=== PATIENT | male | born 1940 ===

== ENCOUNTER 2016-10-19 17:31 | Emergency (ER) | payer OTHER, MEDICARE ==
[2016-10-19 17:31] VITALS: BMI 29.9
[2016-10-19 18:01] VITALS: RESP 20; TEMP 98.5
[2016-10-19 18:43] VITALS: BP 130/77; PULSE 92
--- NOTE | 2016-10-19 18:45 | C.PDOC ---
History Of Present Illness 76 yr old male with PMHx of chronic back pain and PE, is on Pradaxa, presents to the ER with complaints of worsening of his usual lower back pain left more then right side. Patient states the pain is now radiating to the left thigh. Patient reports he was seen by Dr. Vizcarra in August and was prescribed percocet for this same pain. Patient states the pain flared up again in the last week, and he has been taking his 's Naproxen with some relief and came to the ER requesting more Naproxen. Patient denies fever, nausea, vomiting, abdominal pain, diarrhea, dysuria, bladder or bowel incontinence, weakness or numbness. Time Seen by Provider: 10/19/16 18:36 Chief Complaint (Nursing): Back Pain History Per: Patient History/Exam Limitations: no limitations Onset/Duration Of Symptoms: Persistent, Worse Since (last week) Current Symptoms Are (Timing): Still Present Past Medical History Reviewed: Historical Data, Nursing Documentation, Vital Signs Vital Signs: Last Vital Signs Temp 98.5 F 10/19/16 18:40 Pulse 92 H 10/19/16 18:40 Resp 20 10/19/16 18:40 BP 130/77 10/19/16 18:40 Pulse Ox 97 10/19/16 20:33 - Medical History PMH: Anemia, Back Problems (NECK PAIN), HTN, Pulmonary Embolism Surgical History: No Surg Hx - [facility] Procedures EXCISION OF RECTUM, ENDO, DIAGN (04/30/16) EXCISION OF STOMACH, ENDO, DIAGN (04/30/16) Family History: States: No Known Family Hx - Social History Hx Tobacco Use: No Hx Alcohol Use: Yes Hx Substance Use: No - Immunization History Hx Tetanus Toxoid Vaccination: No Hx Influenza Vaccination: No Hx Pneumococcal Vaccination: No Review Of Systems Except As Marked, All Systems Reviewed And Found Negative. Constitutional: Negative for: Fever Gastrointestinal: Negative for: Nausea, Vomiting, Abdominal Pain, Diarrhea Genitourinary: Negative for: Dysuria, Incontinence Musculoskeletal: Positive for: Back Pain Neurological: Negative for: Weakness, Numbness Physical Exam - Physical Exam Appears: Non-toxic, No Acute Distress Skin: Warm, Dry, No Rash Head: Atraumatic, Normacephalic Oral Mucosa: Moist Neck: Normal, Normal ROM, No Midline Cervical Tenderness, Supple Chest: Symmetrical, No Tenderness Cardiovascular: Rhythm Regular, No Murmur Respiratory: Normal Breath Sounds, No Rales, No Rhonchi, No Stridor, No Wheezing Gastrointestinal/Abdominal: Normal Exam, Soft, No Tenderness, No Guarding, No Rebound Back: Other ((+) Mild left lumbar tenderness. (-) No midline tenderness. Spine doesnt't appear straight. ) Extremity: Normal ROM, No Swelling Neurological/Psych: Oriented x3, Normal Speech, Normal Motor ED Course And Treatment O2 Sat by Pulse Oximetry: 97 Progress Note: Had a long discussion with the patient about Naproxen not being the best medicine, given his stomach problem "on protonix and use of Pradaxa". Patient now understands NSAIDS are not the first choice and is advised to follow up with PMD on Saturday to discuss recommendations of pain management and possible physcial therapy or any other alternative treatments. Disposition Counseled Patient/Family Regarding: Diagnosis, Need For Followup - Disposition Referrals: Robert Vizcarra MD [Staff Provider] - Disposition: HOME/ ROUTINE Disposition Time: 19:44 Condition: GOOD Additional Instructions: Follow up with Dr Vizcarra on Saturday to discuss other pain management techniques for your back pain. Take the percocet you already have if needed for pain. 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 - Scribe Statement The provider has reviewed the documentation as recorded by the Scribe Hannah Kwok All medical record entries made by the Scribe were at my direction and personally dictated by me. I have reviewed the chart and agree that the record accurately reflects my personal performance of the history, physical exam, medical decision making, and the department course for this patient. I have also personally directed, reviewed, and agree with the discharge instructions and disposition.
[2016-10-19 18:50] VITALS: O2SAT 97
== END 2016-10-19 20:10 | disposition home or self-care (01) ==
LOC: C.ER 17:31
DX: S33.5XXA Sprain of ligaments of lumbar spine, initial encounter (principal); X58.XXXA Exposure to other specified factors, initial encounter; Y93.9 Activity, unspecified; Y92.9 Unspecified place or not applicable

== ENCOUNTER 2016-11-11 17:53 | Emergency (ER) | payer OTHER ==
[2016-11-11 17:54] VITALS: BMI 29.9
[2016-11-11] MEDS ORDERED: Albuterol-Ipratrop 3 mg / 0.5 (3 ml) UD ONE (18:50)
[2016-11-11] MEDS ORDERED: DiphenhydrAMINE 50 mg/ml Inj IVP STA (18:50)
[2016-11-11 19:07] LABS: BASO # 0.1 K/uL (0.0-0.2); BASO % 1.2 % (0.0-2.0); EOS # 0.6 K/uL (0.0-0.7); EOS % 6.1 % (0.0-4.0); HEMATOCRIT 30.3 % (35.0-51.0); LYMPH # 1.6 K/uL (1.0-4.3); MEAN CELL VOLUME 70.9 fL (80.0-94.0); MEAN CORPUSCULAR HEMOGLOBIN 22.3 pg (27.0-31.0); MEAN CORPUSCULAR HGB CONC 31.4 g/dL (33.0-37.0); MEAN PLATELET VOLUME 7.9 fL (7.2-11.7); MONO # 1.2 K/uL (0.0-0.8); MONO % 12.9 % (0.0-10.0); NRBC % 0.1 % (0.0-2.0); RED CELL DISTRIBUTION WIDTH 18.5 % (11.5-14.5); WHITE BLOOD COUNT 9.2 K/uL (4.8-10.8)
[2016-11-11 19:09] LABS: URINE BILIRUBIN NEGATIVE (NEGATIVE); URINE BLOOD NEGATIVE (NEGATIVE); URINE COLOR Straw (YELLOW); URINE GLUCOSE (UA) 1+ mg/dL (Normal); URINE KETONE NEGATIVE (NEGATIVE); URINE LEUKOCYTE ESTERASE NEG Leu/uL (Negative); URINE PROTEIN NEGATIVE (NEGATIVE); URINE UROBILINOGEN NORMAL mg/dL (0.2-1.0); WBC URINE < 1 /hpf (0-5)
[2016-11-11 19:16] LABS: CHLORIDE 96 mmol/L (98-107); POTASSIUM 4.3 mmol/L (3.6-5.2); SODIUM 135 mmol/L (132-148)
[2016-11-11 19:18] LABS: GFR AFRICAN-AMERICAN > 60
[2016-11-11 19:19] LABS: ALB/GLOB RATIO 0.9 (1.0-2.1); ALKALINE PHOSPHATASE 79 U/L (38-126); ALT/SGPT 81 U/L (21-72); AST/SGOT 71 U/L (17-59); BILIRUBIN,TOTAL 0.2 mg/dL (0.2-1.3); BLOOD UREA NITROGEN 11 mg/dL (9-20); CARBON DIOXIDE 27 mmol/L (22-30); GLUCOSE,RANDOM 109 mg/dL (75-110); TOTAL PROTEIN 7.6 g/dL (6.3-8.3)
[2016-11-11 19:20] LABS: CALCIUM 8.7 mg/dl (8.6-10.4)
[2016-11-11] MEDS ORDERED: DiphenhydrAMINE 50 mg/ml Inj ONE (19:34)
--- NOTE | 2016-11-11 20:18 | C.PDOC ---
History Of Present Illness Pt has multiple complaints, including left upper back pain with movement, and itching of his body and loss of appetite. 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 History/Exam Limitations: language barrier Onset/Duration Of Symptoms: Days Current Symptoms Are (Timing): Still Present Severity: Moderate Additional History Per: Prior Records Past Medical History Reviewed: Historical Data, Nursing Documentation, Vital Signs Vital Signs: Last Vital Signs Temp 97.7 F 11/11/16 18:01 Pulse 96 H 11/11/16 18:01 Resp 17 11/11/16 18:01 BP 124/75 11/11/16 18:01 Pulse Ox 97 11/11/16 18:01 - Medical History PMH: Anemia, Back Problems (NECK PAIN), HTN, Pulmonary Embolism - [facility] Procedures EXCISION OF RECTUM, ENDO, DIAGN (04/30/16) EXCISION OF STOMACH, ENDO, DIAGN (04/30/16) Family History: States: Unknown Family Hx - Social History Hx Tobacco Use: No Hx Alcohol Use: Yes Hx Substance Use: No - Immunization History Hx Tetanus Toxoid Vaccination: No Hx Influenza Vaccination: No Hx Pneumococcal Vaccination: No Review Of Systems Except As Marked, All Systems Reviewed And Found Negative. Constitutional: Negative for: Fever, Weakness ENT: Negative for: Throat Pain Cardiovascular: Negative for: Chest Pain Respiratory: Negative for: Shortness of Breath, Hemoptysis Gastrointestinal: Negative for: Vomiting, Abdominal Pain, Diarrhea Genitourinary: Negative for: Dysuria Musculoskeletal: Positive for: Back Pain. Negative for: Neck Pain, Leg Pain Neurological: Negative for: Weakness, Numbness, Seizures, Altered Mental Status Physical Exam - Physical Exam Appears: Non-toxic, No Acute Distress Skin: Normal Color, Warm, Dry, No Rash Head: Atraumatic, Normacephalic Eye(s): bilateral: PERRL, EOMI Oral Mucosa: Moist Neck: Normal ROM, Supple Cardiovascular: Rhythm Regular Respiratory: Normal Breath Sounds, No Accessory Muscle Use Gastrointestinal/Abdominal: Soft, No Tenderness Back: No CVA Tenderness, No Vertebral Tenderness, Paraspinal Tenderness (left upper) Extremity: Normal ROM, No Pedal Edema, No Calf Tenderness Neurological/Psych: Oriented x3, Normal Motor, Normal Sensation ED Course And Treatment - Laboratory Results Result Diagrams: 11/11/16 19:04 04/09/17 19:04 O2 Sat by Pulse Oximetry: 97 Pulse Ox Interpretation: Normal - Radiology CXR: Interpreted by Me, Viewed By Me CXR Interpretation: Yes: No Acute Disease Reassessment Condition: Improved Progress - Interventions Interventions:: Observation - Medications Administered Intravenous: Antihistamine (H-1) - Data Reviewed Data Reviewed: Lab, Diagnostic imaging, Old records - Patient Status Patient status: Mostly improved - Continuity of Care Discussed patient case with:: Patient, Family-HIPPA compliant, ED Nurse - Patient Plan Patient Plan: Discharge, F/U with PCP Disposition Counseled Patient/Family Regarding: Studies Performed, Diagnosis, Need For Followup, Rx Given - Disposition Referrals: Robert Vizcarra MD [Staff Provider] - Disposition: HOME/ ROUTINE Disposition Time: 20:19 Condition: IMPROVED Additional Instructions: Follow up with your doctor within 2 days for further evaluation and treatment. Return to the ER if you develop shortness of breath, chest pain, vomiting, abdominal pain, fever, cough, worsening of symptoms or if you have any other concerns. Prescriptions: DiphenhydrAMINE [Benadryl] 25 mg PO Q4 PRN #30 cap PRN Reason: Itching / Pruritus Instructions: Back Pain (ED), Itchy Skin (ED) Print Language: MONTSERRATIAN - Clinical Impression Clinical Impression: Pruritus, Upper back pain on left side
[2016-11-11 20:35] VITALS: BP 118/77; PULSE 85; RESP 18; TEMP 98.5; O2SAT 99
--- NOTE | 2016-11-12 08:44 | RAD ---
HISTORY: Back pain COMPARISON: No prior. TECHNIQUE: Chest PA and lateral FINDINGS: LUNGS: Biapical pleural thickening. No focal infiltrate or effusion. Mild nodularity at the left lung base. Upper lobe granulomatous changes. PLEURA: No significant pleural effusion identified. No pneumothorax apparent. CARDIOVASCULAR: Normal. OSSEOUS STRUCTURES: Degenerative changes in the spine. VISUALIZED UPPER ABDOMEN: Normal. OTHER FINDINGS: None. IMPRESSION: Biapical pleural thickening. No focal infiltrate or effusion. Mild nodularity at the left lung base. Upper lobe granulomatous changes.
--- NOTE | 2016-11-12 12:47 | CARD ---
APPROVED REPORT EKG Measurement Heart [id number] PA [id number] <Conclusion> Sinus rhythm with sinus arrhythmia with occasional premature ventricular complexes Nonspecific T wave abnormality Abnormal ECG
== END 2016-11-11 20:55 | disposition home or self-care (01) ==
LOC: C.ER 17:53
DX: L29.9 Pruritus, unspecified (principal); M54.89 Other dorsalgia
CPT/HCPCS: 71020; 80053; 81001; 84484; 85025; 93005; 96374; 99284; J1200

== ENCOUNTER 2016-12-30 12:07 | Emergency (ER) | payer OTHER ==
[2016-12-30 12:08] VITALS: BMI 29.9
[2016-12-30 12:13] VITALS: RESP 18; O2SAT 100
--- NOTE | 2016-12-30 13:33 | RAD ---
PROCEDURE: Radiographs of the Lumbar Spine. HISTORY: pain COMPARISON: No prior. FINDINGS: BONES: Normal alignment. No listhesis. No fracture. DISC SPACES: Unremarkable. OTHER FINDINGS: Mild facet arthropathy at L5-S1 IMPRESSION: Mild degenerative changes. No acute findings
[2016-12-30 14:03] LABS: RBC URINE < 1 /hpf (0-3); URINE BILIRUBIN NEGATIVE (NEGATIVE); URINE BLOOD NEGATIVE (NEGATIVE); URINE COLOR Yellow (YELLOW); URINE GLUCOSE (UA) NORMAL (Normal); URINE KETONE NEGATIVE (NEGATIVE); URINE LEUKOCYTE ESTERASE NEG Leu/uL (Negative); URINE PROTEIN NEGATIVE (NEGATIVE); URINE UROBILINOGEN NORMAL mg/dL (0.2-1.0); WBC URINE 1 /hpf (0-5)
[2016-12-30 14:19] LABS: BASO # 0.1 K/uL (0.0-0.2); BASO % 0.7 % (0.0-2.0); EOS # 0.5 K/uL (0.0-0.7); EOS % 5.7 % (0.0-4.0); HEMATOCRIT 29.9 % (35.0-51.0); LYMPH # 1.9 K/uL (1.0-4.3); LYMPH % 21.4 % (20.0-40.0); MEAN CORPUSCULAR HEMOGLOBIN 21.1 pg (27.0-31.0); MEAN CORPUSCULAR HGB CONC 31.1 g/dL (33.0-37.0); MEAN PLATELET VOLUME 7.1 fL (7.2-11.7); MONO # 1.1 K/uL (0.0-0.8); MONO % 12.7 % (0.0-10.0); NRBC % 0.2 % (0.0-2.0); RED CELL DISTRIBUTION WIDTH 19.6 % (11.5-14.5); WHITE BLOOD COUNT 8.9 K/uL (4.8-10.8)
[2016-12-30 14:21] LABS: MEAN CELL VOLUME 67.7 fL (80.0-94.0)
[2016-12-30 14:28] LABS: CHLORIDE 98 mmol/L (98-107)
[2016-12-30 14:29] LABS: INR 1.2; POTASSIUM 4.3 mmol/L (3.6-5.2); SODIUM 135 mmol/L (132-148)
[2016-12-30 14:31] LABS: ALB/GLOB RATIO 1.1 (1.0-2.1); ALKALINE PHOSPHATASE 86 U/L (38-126); AST/SGOT 24 U/L (17-59); BILIRUBIN,TOTAL 0.5 mg/dL (0.2-1.3); BLOOD UREA NITROGEN 9 mg/dL (9-20); CARBON DIOXIDE 26 mmol/L (22-30); GFR AFRICAN-AMERICAN > 60; GLUCOSE,RANDOM 100 mg/dL (75-110); TOTAL PROTEIN 7.3 g/dL (6.3-8.3)
[2016-12-30 14:32] LABS: ALT/SGPT 27 U/L (21-72); CALCIUM 8.7 mg/dl (8.6-10.4)
--- NOTE | 2016-12-30 14:59 | RAD ---
HISTORY: pleuritic pain COMPARISON: 11/11/2016. TECHNIQUE: Chest PA and lateral FINDINGS: LUNGS: No active pulmonary disease. PLEURA: No significant pleural effusion identified. No pneumothorax apparent. CARDIOVASCULAR: No radiographic findings to suggest acute or significant cardiovascular disease. OSSEOUS STRUCTURES: No significant abnormalities. VISUALIZED UPPER ABDOMEN: Normal. OTHER FINDINGS: None. IMPRESSION: No active disease. No significant interval change compared to the prior examination(s).
[2016-12-30] MEDS ORDERED: Morphine 4 MG/ML VIAL ONE (15:10)
[2016-12-30] MEDS ORDERED: Iodixanol 320 MG/ML 100 ML BOTTLE IV ONE (15:21)
--- NOTE | 2016-12-30 16:29 | C.PDOC ---
History Of Present Illness 76-year-old male, presents to the emergency department with complaints of back pain. 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 Patient states he developed back pain while lifting something at work, and it has been persistent x2 days. Pain is worse w/ deep breaths. Denies numbness/weakness. Time Seen by Provider: 12/30/16 12:53 Chief Complaint (Nursing): Back Pain History Per: Patient History/Exam Limitations: no limitations Onset/Duration Of Symptoms: Days (2) Current Symptoms Are (Timing): Still Present Past Medical History Reviewed: Historical Data, Nursing Documentation, Vital Signs Vital Signs: Last Vital Signs Temp 98 F 12/30/16 17:38 Pulse 84 12/30/16 17:38 Resp 18 12/30/16 17:38 BP 154/89 H 12/30/16 17:38 Pulse Ox 100 12/30/16 17:38 - Medical History PMH: Anemia, Back Problems (NECK PAIN), HTN, Pulmonary Embolism Denies: Chronic Kidney Disease - [facility] Procedures EXCISION OF RECTUM, ENDO, DIAGN (04/30/16) EXCISION OF STOMACH, ENDO, DIAGN (04/30/16) Family History: States: No Known Family Hx - Social History Hx Tobacco Use: No Hx Alcohol Use: Yes Hx Substance Use: No - Immunization History Hx Tetanus Toxoid Vaccination: No Hx Influenza Vaccination: No Hx Pneumococcal Vaccination: No Review Of Systems Except As Marked, All Systems Reviewed And Found Negative. Constitutional: Negative for: Fever, Chills Cardiovascular: Negative for: Chest Pain, Palpitations Respiratory: Negative for: Shortness of Breath Musculoskeletal: Positive for: Back Pain Physical Exam - Physical Exam Appears: Non-toxic, No Acute Distress Skin: Warm, Dry, No Rash Head: Atraumatic Eye(s): bilateral: Normal Inspection Nose: Normal Oral Mucosa: Moist Lips: Normal Appearing Neck: Normal ROM Chest: Symmetrical Respiratory: No Accessory Muscle Use Back: Other (Tenderness to palpation diffusely.) Extremity: Normal ROM Neurological/Psych: Oriented x3 ED Course And Treatment - Laboratory Results Result Diagrams: 12/30/16 14:16 12/30/16 14:16 O2 Sat by Pulse Oximetry: 100 - Other Rad LS spine xray X-Ray: Viewed By Me, Read By Radiologist Interpretation: Accession No. : [id number]. Patient Name / ID : FRANKO HADDAD / [id number]. Exam Date : 12/30/2016 13:20:11 ( Approved ). Study Comment : Sex / Age : M / 76Y. Creator : Zain Eason MD. Dictator : Zain Eason MD. Buttermilk Drier Operator : Research Chemist : Zain Eason MD. Approver2 : Report Date : 12/30/2016 13:32:10. My Comment : . PROCEDURE: Radiographs of the Lumbar Spine. HISTORY: pain. COMPARISON: No prior. FINDINGS: BONES: Normal alignment. No listhesis. No fracture. DISC SPACES: Unremarkable. OTHER FINDINGS: Mild facet arthropathy at L5-S1. IMPRESSION: Mild degenerative changes. No acute findings - CT Scan/US Chest CTA Other Rad Studies (CT/US): Read By Radiologist, Radiology Report Reviewed CT/US Interpretation: Accession No. : [id number]. Patient Name / ID : FRANKO HADDAD / [id number]. Exam Date : 12/30/2016 16:12:34 ( Approved ). Study Comment : Sex / Age : M / 76Y. Creator : Momo Lemos MD. Dictator : Momo Lemos MD. Buttermilk Drier Operator : Research Chemist : Momo Lemos MD. Approver2 : Report Date : 12/30/2016 16:35:29. My Comment : . PROCEDURE: CT Chest with contrast (Pulmonary Angiogram). HISTORY: pleuritic pain/elevated DDimer. COMPARISON: 04/29/2016 CT angio. TECHNIQUE: Axial computed tomography images were obtained of the chest in the pulmonary arterial phase of enhancement. Coronal and sagittal reformatted images were created and reviewed. Maximum intensity projection (MIP) reconstructed images in the following planes: Coronal and sagittal projections. Intravenous contrast dose: 100 cc Visipaque 320. Mean Hounsfield unit values in the main pulmonary artery: 326.56. Radiation dose: Total exam DLP = 412.88 mGy-cm. This CT exam was performed using one or more of the following dose reduction techniques: Automated exposure control, adjustment of the mA and/or kV according to patient size, and/or use of iterative reconstruction technique. FINDINGS: PULMONARY ARTERIES: Unremarkable. No pulmonary embolism. AORTA: No acute findings. No thoracic aortic aneurysm. LUNGS: Unremarkable. No nodule , mass or pulmonary consolidation. PLEURAL SPACES: Unremarkable. No effusion or pneuomothorax. HEART: Unremarkable. No cardiomegaly. No significant pericardial effusion. LYMPH NODES: No lymphadenopathy. BONES, CHEST WALL: Unremarkable. No fracture or destructive lesion. OTHER FINDINGS: Stable mass right hepatic lobe 2.3 x 3 cm. At a comparable level on the prior study this measured 2.6 x 3.1 cm. IMPRESSION: Unremarkable CT pulmonary angiogram. No pulmonary embolus. Stable hepatic mass Progress Note: Patient was treated with Morphine with improvement. Patient was d /c home with PMD follow up. Medical Decision Making Medical Decision Making: Patients d-dimer elevated. CTA will be ordered. Disposition - Disposition Referrals: Robert Vizcarra MD [Staff Provider] - Disposition: HOME/ ROUTINE Disposition Time: 17:23 Condition: STABLE Additional Instructions: Follow up with your PMD within 1-2 days. Return to ED if feel worse. Prescriptions: oxyCODONE/Acetaminophen [Percocet 5/325 mg Tab] 1 tab PO QID PRN #20 tab PRN Reason: Pain Instructions: Back Pain (ED) Print Language: TAMAZIGHT - Clinical Impression Clinical Impression: Back pain - Scribe Statement The provider has reviewed the documentation as recorded by the Scribe Theresa Corcoran All medical record entries made by the Scribe were at my direction and personally dictated by me. I have reviewed the chart and agree that the record accurately reflects my personal performance of the history, physical exam, medical decision making, and the department course for this patient. I have also personally directed, reviewed, and agree with the discharge instructions and disposition.
--- NOTE | 2016-12-30 16:37 | CT ---
PROCEDURE: CT Chest with contrast (Pulmonary Angiogram) HISTORY: pleuritic pain/elevated DDimer COMPARISON: 04/29/2016 CT angio. TECHNIQUE: Axial computed tomography images were obtained of the chest in the pulmonary arterial phase of enhancement. Coronal and sagittal reformatted images were created and reviewed. Maximum intensity projection (MIP) reconstructed images in the following planes: Coronal and sagittal projections Intravenous contrast dose: 100 cc Visipaque 320. Mean Hounsfield unit values in the main pulmonary artery: 326.56 Radiation dose: Total exam DLP = 412.88 mGy-cm. This CT exam was performed using one or more of the following dose reduction techniques: Automated exposure control, adjustment of the mA and/or kV according to patient size, and/or use of iterative reconstruction technique. FINDINGS: PULMONARY ARTERIES: Unremarkable. No pulmonary embolism. AORTA: No acute findings. No thoracic aortic aneurysm. LUNGS: Unremarkable. No nodule, mass or pulmonary consolidation. PLEURAL SPACES: Unremarkable. No effusion or pneuomothorax. HEART: Unremarkable. No cardiomegaly. No significant pericardial effusion. LYMPH NODES: No lymphadenopathy. BONES, CHEST WALL: Unremarkable. No fracture or destructive lesion OTHER FINDINGS: Stable mass right hepatic lobe 2.3 x 3 cm. At a comparable level on the prior study this measured 2.6 x 3.1 cm. IMPRESSION: Unremarkable CT pulmonary angiogram. No pulmonary embolus. Stable hepatic mass
[2016-12-30 17:40] VITALS: BP 154/89; PULSE 84; TEMP 98
== END 2016-12-30 17:40 | disposition home or self-care (01) ==
LOC: C.ER 12:07
DX: M54.9 Dorsalgia, unspecified (principal); I10 Essential (primary) hypertension; Z86.711 Personal history of pulmonary embolism
CPT/HCPCS: 71020; 71275; 72100; 80053; 81001; 85025; 85378; 85610; 85730; 96374; 99284; J2270; Q9967

== ENCOUNTER 2017-03-04 20:12 | Emergency (ER) | payer MEDICARE, OTHER ==
[2017-03-04 20:12] VITALS: BMI 29.9
[2017-03-04 20:25] VITALS: BP 170/70; PULSE 96; RESP 20; TEMP 97.9; O2SAT 99
--- NOTE | 2017-03-04 21:10 | C.PDOC ---
History Of Present Illness 76 y/o male with Hx of chronic back and neck pain presents to ED with complaints of neck pain for 4 days. Patient states pain is worse with movement. Pt has had similar symptoms in the past .Patient states he has taken Tylenol for pain with no relief. Denies recent injury, sob, change in sensation, fever, bladder/bowel incontinence, chest pain, sob or any other complaints at this time. 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 History/Exam Limitations: no limitations Onset/Duration Of Symptoms: Days Current Symptoms Are (Timing): Still Present Previous Symptoms: Back Pain, Neck Pain Exacerbating Factor(s): Movement Past Medical History Reviewed: Historical Data, Nursing Documentation, Vital Signs Vital Signs: Last Vital Signs Temp 97.9 F 03/04/17 20:24 Pulse 96 H 03/04/17 20:24 Resp 20 03/04/17 20:24 BP 170/70 H 03/04/17 20:24 Pulse Ox 99 03/04/17 21:45 - Medical History PMH: Anemia, Back Problems (NECK PAIN), HTN, Pulmonary Embolism - [facility] Procedures EXCISION OF RECTUM, ENDO, DIAGN (04/30/16) EXCISION OF STOMACH, ENDO, DIAGN (04/30/16) Family History: States: Unknown Family Hx - Social History Hx Tobacco Use: No Hx Alcohol Use: Yes Hx Substance Use: No - Immunization History Hx Tetanus Toxoid Vaccination: No Hx Influenza Vaccination: No Hx Pneumococcal Vaccination: No Review Of Systems Except As Marked, All Systems Reviewed And Found Negative. Constitutional: Negative for: Fever, Chills Gastrointestinal: Negative for: Nausea, Vomiting, Diarrhea Genitourinary: Negative for: Incontinence Musculoskeletal: Positive for: Neck Pain, Back Pain Skin: Negative for: Rash Neurological: Negative for: Numbness, Headache Physical Exam - Physical Exam Appears: Non-toxic, No Acute Distress Skin: Normal Color, Warm Head: Atraumatic, Normacephalic Eye(s): bilateral: Normal Inspection, EOMI Nose: Normal Oral Mucosa: Moist Neck: Normal ROM (aggravated by pain), No Midline Cervical Tenderness, Paracervical Tenderness, No Step Off Deformity Chest: Symmetrical Cardiovascular: Rhythm Regular Respiratory: Normal Breath Sounds, No Accessory Muscle Use, No Rales, No Rhonchi , No Wheezing Back: No CVA Tenderness, No Vertebral Tenderness Extremity: Bilateral: Normal Color And Temperature, Normal ROM Pulses: Left Radial: Normal, Right Radial: Normal Neurological/Psych: Oriented x3, Normal Speech, Normal Cognition, Normal Motor, Normal Sensation ED Course And Treatment ECG: Interpreted By Me, Viewed By Me ECG Rhythm: Sinus Rhythm Rate From EC (bpm) O2 Sat by Pulse Oximetry: 99 (RA) Pulse Ox Interpretation: Normal Progress Note: On reassessment, patient is resting comfortably, and is in no acute distress. Patient was instructed to follow up with physician/clinic in 1- 2 days for further evaluation. Pt was seen and evlauated by Dr Chapman, agreed upon plan and discharge. Reevaluation Time: 21:00 Reassessment Condition: Improved Disposition - Disposition Referrals: Robert Vizcarra MD [Staff Provider] - Disposition: HOME/ ROUTINE Disposition Time: 21:39 Condition: STABLE Additional Instructions: Vaya a andrews mdico o la clnica en 2-5 rocha sin falta, para mas evaluacin. [place] los medicamentos issac indicado. Volver a la miko de emergencia en cualquier momento si los sntomas persisten o empeoran. Prescriptions: Acetaminophen [Tylenol 325mg tab] 650 mg PO Q4 PRN #20 tab PRN Reason: Pain, Mild (1-3) Instructions: Cervical Strain (DC) Forms: [employer] (British) Print Language: TUVALU[place] - Clinical Impression Clinical Impression: Cervical strain - Scribe Statement The provider has reviewed the documentation as recorded by the Scribesteban Caal All medical record entries made by the Scribe were at my direction and personally dictated by me. I have reviewed the chart and agree that the record accurately reflects my personal performance of the history, physical exam, medical decision making, and the department course for this patient. I have also personally directed, reviewed, and agree with the discharge instructions and disposition.
--- NOTE | 2017-03-05 18:49 | CARD ---
APPROVED REPORT EKG Measurement Heart [id number] HI [id number] <Conclusion> Sinus rhythm with premature atrial complexes in a pattern of bigeminy Otherwise normal ECG
== END 2017-03-04 21:45 | disposition home or self-care (01) ==
LOC: C.ER 20:12
DX: S16.1XXA Strain of muscle, fascia and tendon at neck level, initial encounter (principal); X58.XXXA Exposure to other specified factors, initial encounter
CPT/HCPCS: 93005; 96372; 99283; J1885

== ENCOUNTER 2017-05-08 09:40 | Inpatient (IN) | payer OTHER, MEDICARE ==
[2017-05-08 09:40] VITALS: BMI 29.9
[2017-05-08] MEDS ORDERED: Sodium Chloride 0.9% 1,000 ML IV ONE (10:14)
[2017-05-08] MEDS ORDERED: Sodium Chloride 0.9% 1,000 ML ONE (10:36)
[2017-05-08 10:43] LABS: BASO % 0.1 % (0.0-2.0); EOS # 0.2 K/uL (0.0-0.7); EOS % 2.4 % (0.0-4.0); HEMATOCRIT 32.6 % (35.0-51.0); LYMPH # 2.5 K/uL (1.0-4.3); LYMPH % 29.8 % (20.0-40.0); MEAN CELL VOLUME 69.6 fL (80.0-94.0); MEAN CORPUSCULAR HEMOGLOBIN 22.1 pg (27.0-31.0); MEAN CORPUSCULAR HGB CONC 31.7 g/dL (33.0-37.0); MEAN PLATELET VOLUME 7.7 fL (7.2-11.7); MONO # 0.7 K/uL (0.0-0.8); MONO % 8.4 % (0.0-10.0); NRBC % 0.1 % (0.0-2.0); RED CELL DISTRIBUTION WIDTH 22.4 % (11.5-14.5); WHITE BLOOD COUNT 8.4 K/uL (4.8-10.8)
[2017-05-08 10:52] LABS: RBC URINE < 1 /hpf (0-3); URINE BILIRUBIN NEGATIVE (NEGATIVE); URINE BLOOD NEGATIVE (NEGATIVE); URINE COLOR Yellow (YELLOW); URINE GLUCOSE (UA) NORMAL (Normal); URINE KETONE NEGATIVE (NEGATIVE); URINE LEUKOCYTE ESTERASE NEG Leu/uL (Negative); URINE PROTEIN NEGATIVE (NEGATIVE); URINE UROBILINOGEN NORMAL mg/dL (0.2-1.0); WBC URINE < 1 /hpf (0-5)
[2017-05-08 10:58] LABS: CHLORIDE 98 mmol/L (98-107); POTASSIUM 4.3 mmol/L (3.6-5.2); SODIUM 135 mmol/L (132-148)
--- NOTE | 2017-05-08 10:59 | C.PDOC ---
History Of Present Illness 76 y/o male is sent to ED by Dr. Vizcarra for admission for left flank pain. Patient had CT scan done on 05/01/17 which showed severe hydronephrosis of the left kidney versus large parapelvic and cortical cysts . Otherwise, patient denies any n/v/d, fever, or chills. Time Seen by Provider: 05/08/17 09:58 Chief Complaint (Nursing): Male Genitourinary History Per: Patient History/Exam Limitations: no limitations Onset/Duration Of Symptoms: Days Current Symptoms Are (Timing): Still Present Quality Of Discomfort: "Pain" Associated Symptoms: Back Pain. denies: Fever, Chills, Nausea, Vomiting, Diarrhea, Loss Of Appetite, Chest Pain, Constipation, Urinary Symptoms Alleviating Factors: None Recent travel outside of the [place]: No Additional History Per: Patient Past Medical History Reviewed: Historical Data, Nursing Documentation, Vital Signs Vital Signs: Last Vital Signs Temp 97.6 F 05/08/17 14:00 Pulse 70 05/08/17 14:00 Resp 18 05/08/17 14:00 BP 165/98 H 05/08/17 14:00 Pulse Ox 98 05/08/17 14:00 - Medical History PMH: Anemia, Back Problems (NECK PAIN), HTN, Pulmonary Embolism Denies: Chronic Kidney Disease - [facility] Procedures EXCISION OF RECTUM, ENDO, DIAGN (04/30/16) EXCISION OF STOMACH, ENDO, DIAGN (04/30/16) Family History: States: Unknown Family Hx - Social History Hx Tobacco Use: No Hx Alcohol Use: Yes Hx Substance Use: No - Immunization History Hx Tetanus Toxoid Vaccination: No Hx Influenza Vaccination: No Hx Pneumococcal Vaccination: No Review Of Systems Except As Marked, All Systems Reviewed And Found Negative. Constitutional: Negative for: Fever, Chills Cardiovascular: Negative for: Chest Pain, Palpitations Respiratory: Negative for: Cough, Shortness of Breath Gastrointestinal: Negative for: Nausea, Vomiting, Abdominal Pain Genitourinary: Negative for: Dysuria, Frequency, Hematuria Musculoskeletal: Positive for: Back Pain (left flank pain) Neurological: Negative for: Weakness, Numbness Physical Exam - Physical Exam Appears: Non-toxic, No Acute Distress Skin: Normal Color, Warm, Dry Head: Atraumatic, Normacephalic Eye(s): bilateral: Normal Inspection Oral Mucosa: Moist Neck: Supple Chest: Symmetrical Cardiovascular: Rhythm Regular, No Murmur Respiratory: Normal Breath Sounds, No Rales, No Rhonchi, No Wheezing Gastrointestinal/Abdominal: Soft, No Tenderness Back: CVA Tenderness (left), No Vertebral Tenderness Extremity: Normal ROM, No Deformity Neurological/Psych: Oriented x3, Normal Speech ED Course And Treatment - Laboratory Results Result Diagrams: 05/08/17 10:33 05/08/17 10:33 Lab Interpretation: Normal O2 Sat by Pulse Oximetry: 100 (on RA) Pulse Ox Interpretation: Normal Progress Note: Blood work, UA, Abd LTD/renal ultrasound ordered and reviewed. Patient was given Toradol and IV fluids. Reassessment Condition: Improved - Physician Consult Information Physician Contacted: Walker Ruiz Outcome Of Conversation: admit Medical Decision Making Medical Decision Making: Patient sent in by Dr Vizcarra for admission. Patient has left flank pain and had recent CTA which showed a left hydronephrosis and liver mass Disposition Discussed With Dr.: Walker Ruiz Doctor Will See Patient In The: Hospital - Disposition Disposition: HOSPITALIZED Disposition Time: 12:30 Condition: STABLE - POA Present On Arrival: None - Clinical Impression Clinical Impression: Liver mass, Hydronephrosis - PA / PRICING SPECIALIST / Resident Statement MD/DO has reviewed & agrees with the documentation as recorded. - Scribe Statement The provider has reviewed the documentation as recorded by the Scribesteban Veronica All medical record entries made by the Padmajaibesteban were at my direction and personally dictated by me. I have reviewed the chart and agree that the record accurately reflects my personal performance of the history, physical exam, medical decision making, and the department course for this patient. I have also personally directed, reviewed, and agree with the discharge instructions and disposition. Decision To Admit - Pt Status Changed To: Hospital Disposition Of: Inpatient - Admit Certification Admit to Inpatient:: After my assessment, the patient will require hospitalization for at least two midnights. This is because of the severity of symptoms shown, intensity of services needed, and/or the medical risk in this patient being treated as an outpatient. - InPatient: Physician Admission Certification: I certify that this patient requires 2 or more midnights of care for the following reason:: Left Hydronephrosis. Liver Mass - . Bed Request Type: Regular Admitting Physician: Walker Ruiz Patient Diagnosis: Liver mass, Hydronephrosis
[2017-05-08 11:00] LABS: ALKALINE PHOSPHATASE 105 U/L (38-126); AST/SGOT 25 U/L (17-59); BILIRUBIN,TOTAL 0.6 mg/dL (0.2-1.3); CARBON DIOXIDE 24 mmol/L (22-30); GFR AFRICAN-AMERICAN > 60
[2017-05-08 11:01] LABS: ALT/SGPT 31 U/L (21-72); BLOOD UREA NITROGEN 8 mg/dL (9-20); GLUCOSE,RANDOM 70 mg/dL (75-110)
--- NOTE | 2017-05-08 12:04 | US ---
Indication: Abdominal pain Comparison: None available. Findings: The liver appears within normal limits in echotexture and size measuring 18.2 cm. The main portal vein appears patent with normal directional flow. Solid-appearing hypoechoic right hepatic lobe mass measures approximately 2.9 x 1.9 x 2.7 cm. There is no evidence of intrahepatic ductal dilatation. The common bile duct appears mildly dilated, measuring 8 mm. At least two 2 mm echogenic gallbladder foci consistent with polyps identified. There is no evidence of gallbladder-wall thickening, pericholecystic fluid, or stones. The patient was not focally tender over the gallbladder. The pancreas was not visualized. The right kidney measures 9.8 x 3.9 x 4.5 cm and is without evidence of stones or hydronephrosis. The left kidney measures 11.7 x 5.1 x 5.6 cm. Severe left-sided hydronephrosis. No obstructing calculus identified. The spleen measures approximately 9.4 cm. Prevoid urinary bladder volume 398.8 mL. Postvoid urinary bladder volume 190.6 mL. The visualized abdominal aorta appears within normal limits caliber. The visualized IVC appear grossly unremarkable. Impression: Solid-appearing hypoechoic right hepatic lobe mass measures approximately 2.9 x 1.9 x 2.7 cm. Recommend further characterization with dedicated cross-sectional imaging. Severe left-sided hydronephrosis. No obstructing calculus identified. At least two 2 mm echogenic gallbladder foci consistent with polyps. Prevoid urinary bladder volume 398.8 mL. Postvoid urinary bladder volume 190.6 mL.
--- NOTE | 2017-05-08 14:04 | CP.PCM.HP ---
<Austin Carlos - Last Filed: 05/08/17 16:14> History of Present Illness - History of Present Illness History of Present Illness: CC: Left sided flank pain HPI: Patient is a 76 year old male with a history of PE, HTN, and gastritis. He is here because he was sent by his PMD for further evaluation, due to findings of a repeat CT angiogram. He was previously treated at [facility] for a PE and discharged home with Pradaxa. Patient had a follow up CT scan last year which showed no evidence of PE please see emr for full report. However CT scan did show evidence of hydronephorosis, increasing size of a liver mass in the right lobe, and possible metastatic disease or osteoporosis. He says he has been having left flank pain for the past 3 months however the pain has worsened. He also complains of urinary frequency and decreased urine stream. He denies any fever, chills, unintentional weight loss, chest pain, fever, chills, diffaculty breathing, constipation, diarrhea, blood in stool, blood in urine, joint pain, swelling, rash, depression, or anxiety. 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 Vizcarra Present on Admission - Present on Admission Any Indicators Present on Admission: No History of DVT/PE: Yes History of Uncontrolled Diabetes: No Urinary Catheter: No Decubitus Ulcer Present: No Review of Systems - Review of Systems All systems: reviewed and no additional remarkable complaints except - Constitutional Constitutional: absent: Chills, Fever, Weight Loss, Weakness - EENT Eyes: absent: Change in Vision, Loss of Vision Ears: absent: Dizziness - Cardiovascular Cardiovascular: absent: Chest Pain, Palpitations - Respiratory Respiratory: absent: Cough, Dyspnea, Dyspnea on Exertion - Gastrointestinal Gastrointestinal: absent: Diarrhea, Dyspepsia, Nausea, Vomiting - Genitourinary Genitourinary: Change in Urinary Stream (slow stream), Flank Pain, Urinary Frequency, Voiding Freq/Small Amts. absent: Hematuria, Nocturia, Urinary Incontinence Additional comments: left flank pain - Musculoskeletal Musculoskeletal: absent: Numbness, Tingling - Integumentary Integumentary: Rash - Neurological Neurological: absent: Confusion, Dizziness, Numbness, Weakness - Psychiatric Psychiatric: absent: Anxiety - Endocrine Endocrine: absent: Fatigue, Palpitations - Hematologic/Lymphatic Hematologic: absent: Easy Bleeding, Easy Bruising Past Patient History - Infectious Disease Hx of Infectious Diseases: None - Past Medical History & Family History Past Medical History?: No - Past Social History Smoking Status: Never Smoked - CARDIAC Hx Hypertension: Yes - PULMONARY Hx Pulmonary Embolism: Yes - NEUROLOGICAL Hx Neurological Disorder: No - HEENT Hx HEENT Problems: Yes Hx Cataracts: Yes - RENAL Hx Chronic Kidney Disease: No - ENDOCRINE/METABOLIC Hx Endocrine Disorders: No - HEMATOLOGICAL/ONCOLOGICAL Hx Anemia: Yes - INTEGUMENTARY Hx Dermatological Problems: No - MUSCULOSKELETAL/RHEUMATOLOGICAL Hx Back Pain: Yes - GASTROINTESTINAL Hx Gastrointestinal Disorders: No - GENITOURINARY/GYNECOLOGICAL Hx Genitourinary Disorders: No - PSYCHIATRIC Hx Substance Use: No - SURGICAL HISTORY Hx Surgeries: No - ANESTHESIA Hx Anesthesia: No Hx Anesthesia Reactions: No Meds Allergies/Adverse Reactions: Allergies Allergy/AdvReac Type Severity Reaction Status Date / Time No Known Allergies Allergy Verified 05/08/17 09:47 Physical Exam - Constitutional Appears: Non-toxic, No Acute Distress - Eye Exam Eye Exam: Normal appearance, PERRL. absent: Scleral icterus Pupil Exam: NORMAL ACCOMODATION - ENT Exam ENT Exam: Normal Exam, Normal External Ear Exam, Normal Oropharynx, TM's Normal Bilaterally - Neck Exam Neck exam: Positive for: Normal Inspection - Respiratory Exam Respiratory Exam: Clear to Auscultation Bilateral. absent: Rales, Rhonchi, Wheezes - Cardiovascular Exam Cardiovascular Exam: REGULAR RHYTHM, RRR, +S1, +S2. absent: Gallop, Rubs - GI/Abdominal Exam GI & Abdominal Exam: Normal Bowel Sounds, Soft, Tenderness (mild tenderness on the left side). absent: Guarding, Rebound - Extremities Exam Extremities exam: Positive for: normal inspection. Negative for: pedal edema - Back Exam Back exam: NORMAL INSPECTION. absent: CVA tenderness (L), CVA tenderness (R) - Neurological Exam Neurological exam: Alert, Oriented x3 - Psychiatric Exam Psychiatric exam: Normal Affect, Normal Mood - Skin Skin Exam: Normal Color Results - Vital Signs Recent Vital Signs: Last Vital Signs Temp 97.6 F 05/08/17 14:00 Pulse 70 05/08/17 14:00 Resp 18 05/08/17 14:00 BP 165/98 H 05/08/17 14:00 Pulse Ox 98 05/08/17 14:00 - Labs Result Diagrams: 05/08/17 10:33 05/08/17 10:33 Labs: Laboratory Results - last 24 hr 05/08/17 05/08/17 05/08/17 10:33 10:33 10:33 WBC 8.4 RBC 4.68 Hgb 10.3 L Hct 32.6 L MCV 69.6 L MCH 22.1 L MCHC 31.7 L RDW 22.4 H Plt Count 399 MPV 7.7 Neut % (Auto) 59.3 Lymph % (Auto) 29.8 [place] % (Auto) 8.4 Eos % (Auto) 2.4 Baso % (Auto) 0.1 Neut # 5.0 Lymph # 2.5 [place] # 0.7 Eos # 0.2 Baso # 0.0 Differential Comment Sodium 135 Potassium 4.3 Chloride 98 Carbon Dioxide 24 Anion Gap 17 BUN 8 L Creatinine 0.8 Est GFR ( Amer) > 60 Est GFR (Non-Af Amer) > 60 Random Glucose 70 L Calcium 9.0 Total Bilirubin 0.6 AST 25 ALT 31 Alkaline Phosphatase 105 Total Protein 8.0 Albumin 4.1 Globulin 4.0 H Albumin/Globulin Ratio 1.0 Lipase 100 Urine Color Yellow Urine Clarity Clear Urine pH 8.0 Ur Specific [place] 1.009 Urine Protein Negative Urine Glucose (UA) Normal Urine Ketones Negative Urine Blood Negative Urine Nitrate Negative Urine Bilirubin Negative Urine Urobilinogen Normal Ur Leukocyte Esterase Neg Urine WBC (Auto) < 1 Urine RBC (Auto) < 1 Ur Squamous Epith Cells < 1 Assessment & Plan (1) Hydronephrosis Assessment and Plan: Patient admitted to reg/inpatient floor. CT angio read was reviewed as well as ED lab work, UA and chemistry is unremarkable. Started Flomax and Proscar. CT of the abdomen/pelvis with and without contrast ordered Dr. Sherrell Rivera consulted for Urology help appreciated, spoke with him. We have ordered PSA, PSA % and free, urine cytology, urine culture. Will also get bone scan to look for metastatic disease. Follow up morning cbc, cmp, mag, phos Status: Acute (2) Urinary retention Assessment and Plan: Urology consulted. Dr. Sherrell Rivera, started Flomax 0.4mg and Proscar 5mg. Status: Acute (3) Liver mass Assessment and Plan: Dr. Valdovinos consulted for GI, help appreciated. Follow up CT of abdomen/pelvis. Consider IR consult for possible biopsy Status: Acute (4) Anemia Assessment and Plan: Anemia work up, which includes iron studies, retic count, B12, Folate, Haptoglobin, Methmyalonic acid, stool ob x3, ferritin, LDH, peripheral smear, LDH, Dr. Mcintyre consulted for Heme/Onc. Follow up morning cbc as well. Status: Acute (5) HTN (hypertension) Assessment and Plan: continue home Losartan 50mg and HCTZ 25mg Status: Chronic (6) History of pulmonary embolism Assessment and Plan: Dr. Mcintyre, consulted, patient on Lovenox 40mg SC daily. SCDs as well. Status: Chronic (7) Prophylactic measure Assessment and Plan: He has a high score for DVT risk (4 points). Have Started Lovenox 40mg SC daily , SCDs Protonix 40mg daily Status: Acute <Juan Jose Veronica - Last Filed: 05/08/17 19:31> Results - Vital Signs Recent Vital Signs: Last Vital Signs Temp 97.4 F L 05/08/17 16:00 Pulse 78 05/08/17 16:00 Resp 20 05/08/17 16:00 BP 155/91 H 05/08/17 16:00 Pulse Ox 97 05/08/17 16:00 - Labs Result Diagrams: 05/08/17 10:33 05/08/17 10:33 Labs: Laboratory Results - last 24 hr 05/08/17 05/08/17 05/08/17 10:33 10:33 10:33 WBC 8.4 RBC 4.68 Hgb 10.3 L Hct 32.6 L MCV 69.6 L MCH 22.1 L MCHC 31.7 L RDW 22.4 H Plt Count 399 MPV 7.7 Neut % (Auto) 59.3 Lymph % (Auto) 29.8 [place] % (Auto) 8.4 Eos % (Auto) 2.4 Baso % (Auto) 0.1 Neut # 5.0 Lymph # 2.5 [place] # 0.7 Eos # 0.2 Baso # 0.0 Differential Comment Sodium 135 Potassium 4.3 Chloride 98 Carbon Dioxide 24 Anion Gap 17 BUN 8 L Creatinine 0.8 Est GFR ( Amer) > 60 Est GFR (Non-Af Amer) > 60 Random Glucose 70 L Calcium 9.0 Iron TIBC % Saturation Total Bilirubin 0.6 AST 25 ALT 31 Alkaline Phosphatase 105 Total Protein 8.0 Albumin 4.1 Globulin 4.0 H Albumin/Globulin Ratio 1.0 Lipase 100 Urine Color Yellow Urine Clarity Clear Urine pH 8.0 Ur Specific [place] 1.009 Urine Protein Negative Urine Glucose (UA) Normal Urine Ketones Negative Urine Blood Negative Urine Nitrate Negative Urine Bilirubin Negative Urine Urobilinogen Normal Ur Leukocyte Esterase Neg Urine WBC (Auto) < 1 Urine RBC (Auto) < 1 Ur Squamous Epith Cells < 1 05/08/17 17:14 WBC RBC Hgb Hct MCV MCH MCHC RDW Plt Count MPV Neut % (Auto) Lymph % (Auto) [place] % (Auto) Eos % (Auto) Baso % (Auto) Neut # Lymph # [place] # Eos # Baso # Differential Comment Sodium Potassium Chloride Carbon Dioxide Anion Gap BUN Creatinine Est GFR ( Amer) Est GFR (Non-Af Amer) Random Glucose Calcium Iron 14 L TIBC 403 % Saturation 3 L Total Bilirubin AST ALT Alkaline Phosphatase Total Protein Albumin Globulin Albumin/Globulin Ratio Lipase Urine Color Urine Clarity Urine pH Ur Specific [place] Urine Protein Urine Glucose (UA) Urine Ketones Urine Blood Urine Nitrate Urine Bilirubin Urine Urobilinogen Ur Leukocyte Esterase Urine WBC (Auto) Urine RBC (Auto) Ur Squamous Epith Cells Attending/Attestation - Attestation I have personally seen and examined this patient.: Yes I have fully participated in the care of the patient.: Yes I have reviewed all pertinent clinical information: Yes Notes (Text): 05/08/17 19:22 Patient was seen and examined shortly after the resident. History, physical, assessment and plan were thoroughly gone over with the resident. Juan Jose Veronica D.O.
[2017-05-08] MEDS: Pantoprazole 40 mg EC Tab PO SCH (14:42)
[2017-05-08 16:31] VITALS: RESP 20
[2017-05-08 17:32] LABS: IRON 14 ug/dL (49-181)
[2017-05-08] MEDS ORDERED: Iohexol 300 100 ML IJ ONE (17:51)
[2017-05-08] MEDS: Enoxaparin 40 mg Syringe SC SCH (17:51)
--- NOTE | 2017-05-08 19:43 | CP.PCM.CON ---
History of Present Illness - History of Present Illness History of Present Illness: HPI: Patient is a 76 year old male admitted because he was sent by his PMD for further evaluation, due to findings of a repeat CT angiogram. He was previously treated at [facility] for a PE and discharged home with Pradaxa. Patient had a follow up CT scan which showed no evidence of PE. However CT scan did show evidence of large left hydronephorosis, increasing size of a previously noted hypoechoic liver mass in the right lobe, and possible metastatic disease or osteoporosis. He says he has been having left flank pain for the past 3 months however the pain has worsened. He also complains of urinary frequency and decreased urine stream. He denies any fever , chills, unintentional weight loss, chest pain, fever, chills, diffaculty breathing, constipation, diarrhea, blood in stool, blood in urine, joint pain, swelling, rash, depression, or anxiety. Patient has no h/o hepatitis, liver disease, IVDA or alcohol abuse. Pt was evaluated last year with an EGD and Colonoscopy for w/u of anemia and showed two small gastric ulcers, +H pylori gastritis, diverticulosis and a small hyperplastic polyp. No bleeding or melena. Hematology work up in progress for current anemia but GI w/u was adequately done. Review of Systems - Constitutional Constitutional: absent: Chills, Headache - Cardiovascular Cardiovascular: absent: Chest Pain at Rest, Diaphoresis, Dyspnea, Edema - Respiratory Respiratory: absent: Cough, Snoring - Gastrointestinal Gastrointestinal: As Per HPI. absent: Belching, Dysphagia, Hematochezia, Melena - Genitourinary Genitourinary: Dysuria, Urinary Urgency Past Patient History - Infectious Disease Hx of Infectious Diseases: None - Past Medical History & Family History Past Medical History?: No - Past Social History Smoking Status: Never Smoked Alcohol: None Drugs: Denies - CARDIAC Hx Hypertension: Yes - PULMONARY Hx Pulmonary Embolism: Yes - NEUROLOGICAL Hx Neurological Disorder: No - HEENT Hx HEENT Problems: Yes Hx Cataracts: Yes - RENAL Hx Chronic Kidney Disease: No - ENDOCRINE/METABOLIC Hx Endocrine Disorders: No - HEMATOLOGICAL/ONCOLOGICAL Hx Anemia: Yes Hx Cirrhosis: No Hx Hepatitis A: No Hx Hepatitis B: No Hx Hepatitis C: No Hx Human Immunodeficiency Virus (HIV): No - INTEGUMENTARY Hx Dermatological Problems: No - MUSCULOSKELETAL/RHEUMATOLOGICAL Hx Back Pain: Yes - GASTROINTESTINAL Hx Gastrointestinal Disorders: Yes Hx Bowel Surgery: No Hx Clostridium Difficile: No Hx Colitis: No Hx Colostomy: No Hx Constipation: No Hx Crohn's Disease: No Hx Diarrhea: No Hx Diverticulitis: Yes (diverticulosis by exam 2015) Hx Esophageal Varices: No Hx Fatty Liver Disease: No Hx Gall Bladder Disease: No Hx Gastritis: Yes (H pylori + 2015) Hx Gastroesophageal Reflux: No Hx Hemorrhoids: No Hx Ileostomy: No Hx Irritable Bowel: No Hx Liver Failure: No Hx Nausea: No Hx Pancreatitis: No HX Swallowing Problems: No Hx Ulcer: Yes Hx Vomiting: No Other/Comment: Liver mass noted on CT scan - GENITOURINARY/GYNECOLOGICAL Hx Genitourinary Disorders: No - PSYCHIATRIC Hx Substance Use: No - SURGICAL HISTORY Hx Surgeries: No - ANESTHESIA Hx Anesthesia: No Hx Anesthesia Reactions: No Meds Allergies/Adverse Reactions: Allergies Allergy/AdvReac Type Severity Reaction Status Date / Time No Known Allergies Allergy Verified 05/08/17 09:47 - Medications Medications: Current Medications Enoxaparin Sodium (Lovenox) 40 mg SC DAILY [facility] Last Admin: 05/08/17 17:51 Dose: 40 mg Finasteride (Proscar) 5 mg PO DAILY [facility] Last Admin: 05/08/17 18:00 Dose: 5 mg Hydrochlorothiazide (Hydrodiuril) 25 mg PO DAILY [facility] Last Admin: 05/08/17 14:41 Dose: 25 mg Ketorolac Tromethamine (Toradol) 15 mg IVP Q8H PRN PRN Reason: Pain, severe (8-10) Losartan Potassium (Cozaar) 50 mg PO DAILY [facility] Last Admin: 05/08/17 14:41 Dose: 50 mg Pantoprazole Sodium (Protonix Ec Tab) 40 mg PO DAILY [facility] Last Admin: 05/08/17 14:42 Dose: 40 mg Tamsulosin HCl (Flomax) 0.4 mg PO DAILY [facility] Last Admin: 05/08/17 17:51 Dose: 0.4 mg Physical Exam - Constitutional Appears: No Acute Distress - Head Exam Head Exam: ATRAUMATIC, NORMOCEPHALIC - Eye Exam Eye Exam: EOMI, PERRL - Respiratory Exam Respiratory Exam: NORMAL BREATHING PATTERN - Cardiovascular Exam Cardiovascular Exam: REGULAR RHYTHM, +S1 - GI/Abdominal Exam GI & Abdominal Exam: Normal Bowel Sounds, Soft. absent: Distended, Mass, Organomegaly, Pulsatile Mass, Rebound, Rigid, Tenderness - Rectal Exam Rectal Exam: NORMAL INSPECTION - Extremities Exam Extremities exam: Positive for: normal inspection - Neurological Exam Neurological exam: Alert, Oriented x3 - Psychiatric Exam Psychiatric exam: Normal Affect, Normal Mood - Skin Skin Exam: Dry, Warm Results - Vital Signs Recent Vital Signs: Last Vital Signs Temp 97.4 F L 05/08/17 16:00 Pulse 78 05/08/17 16:00 Resp 20 05/08/17 16:00 BP 155/91 H 05/08/17 16:00 Pulse Ox 97 05/08/17 16:00 - Labs Result Diagrams: 05/09/17 08:06 05/09/17 08:06 Labs: Laboratory Results - last 24 hr 05/08/17 05/08/17 05/08/17 10:33 10:33 10:33 WBC 8.4 RBC 4.68 Hgb 10.3 L Hct 32.6 L MCV 69.6 L MCH 22.1 L MCHC 31.7 L RDW 22.4 H Plt Count 399 MPV 7.7 Neut % (Auto) 59.3 Lymph % (Auto) 29.8 Dixon % (Auto) 8.4 Eos % (Auto) 2.4 Baso % (Auto) 0.1 Neut # 5.0 Lymph # 2.5 Dixon # 0.7 Eos # 0.2 Baso # 0.0 Differential Comment Sodium 135 Potassium 4.3 Chloride 98 Carbon Dioxide 24 Anion Gap 17 BUN 8 L Creatinine 0.8 Est GFR ( Amer) > 60 Est GFR (Non-Af Amer) > 60 Random Glucose 70 L Calcium 9.0 Iron TIBC % Saturation Total Bilirubin 0.6 AST 25 ALT 31 Alkaline Phosphatase 105 Total Protein 8.0 Albumin 4.1 Globulin 4.0 H Albumin/Globulin Ratio 1.0 Lipase 100 Urine Color Yellow Urine Clarity Clear Urine pH 8.0 Ur Specific [place] 1.009 Urine Protein Negative Urine Glucose (UA) Normal Urine Ketones Negative Urine Blood Negative Urine Nitrate Negative Urine Bilirubin Negative Urine Urobilinogen Normal Ur Leukocyte Esterase Neg Urine WBC (Auto) < 1 Urine RBC (Auto) < 1 Ur Squamous Epith Cells < 1 05/08/17 17:14 WBC RBC Hgb Hct MCV MCH MCHC RDW Plt Count MPV Neut % (Auto) Lymph % (Auto) Dixon % (Auto) Eos % (Auto) Baso % (Auto) Neut # Lymph # Dixon # Eos # Baso # Differential Comment Sodium Potassium Chloride Carbon Dioxide Anion Gap BUN Creatinine Est GFR ( Amer) Est GFR (Non-Af Amer) Random Glucose Calcium Iron 14 L TIBC 403 % Saturation 3 L Total Bilirubin AST ALT Alkaline Phosphatase Total Protein Albumin Globulin Albumin/Globulin Ratio Lipase Urine Color Urine Clarity Urine pH Ur Specific [place] Urine Protein Urine Glucose (UA) Urine Ketones Urine Blood Urine Nitrate Urine Bilirubin Urine Urobilinogen Ur Leukocyte Esterase Urine WBC (Auto) Urine RBC (Auto) Ur Squamous Epith Cells - Imaging and Cardiology CT scan - abdomen Status: Image reviewed by me Assessment & Plan (1) H/O peptic ulcer Assessment and Plan: Assess for persistence of H pylori infection and treat if not eradicated. Status: Acute (2) H/O adenomatous polyp of colon Assessment and Plan: prior histology was hyperplastic No need for repeat examination at this time, 10 year follow up exam is recommended. Status: Acute (3) Liver mass Assessment and Plan: Enlarging mass noted on CT Scan. r/o hepatoma, hemangioma, FNH, adenoma, doubt metastatic solitary lesion, cyst or abscess. Agree with CT of Abd with IV contrast. Will review with radiologist. Initial appearance is that of hemangioma to me. Check tumor markers Status: Acute (4) Anemia Assessment and Plan: Hematology evaluation in progress EGD and Colonoscopy done last year. Monitor for evidence of overt bleeding/occult bleeding. If + would benefit from referral for [facility]. Status: Acute (5) Helicobacter pylori [H. pylori] as the cause of diseases classified elsewhere Assessment and Plan: Repeat stool for H pylori fecal antigen and treat if still positive (unclear if treatment given after diagnosis??) Status: Chronic
--- NOTE | 2017-05-08 21:56 | CT ---
EXAM: CT Abdomen and Pelvis Without and With Intravenous Contrast CLINICAL HISTORY: 76 years old, male; Condition or disease; Kidney or ureter condition and liver condition; Hydronephrosis; Lesion; Additional info: Right lobe liver lesion, hydrophenphrosis, TECHNIQUE: Axial computed tomography images of the abdomen and pelvis without and with intravenous contrast. All CT scans at this facility use one or more dose reduction techniques, viz.: automated exposure control; ma/kV adjustment per patient size (including targeted exams where dose is matched to indication; i.e. head); or iterative reconstruction technique. Coronal and sagittal reformatted images were created and reviewed. CONTRAST: 100 mL of omnipaque 300 administered intravenously. COMPARISON: ABD LTD/RENAL US 05/08/2017 10:59:06 AM FINDINGS: Lower thorax: The bilateral lung bases are clear. ABDOMEN: Liver: Findings within segment 7 of the liver which demonstrate decreased attenuation initially, with centripetal peripheral filling on delayed images, with complete filling 100 sec delayed images. These findings represent a cavernous hemangioma, measuring 3 cm in greatest dimension. Gallbladder and bile ducts: The gallbladder is decompressed. No calcified stones. No significant intra- or extrahepatic biliary ductal dilation. Pancreas: Enhances homogeneously. No ductal dilation. No discrete mass. Spleen: No acute findings. Adrenals: No acute findings. Kidneys and ureters: Multiple left-sided parapelvic cysts. No hydronephrosis or renal calculi. No discrete solid mass. PELVIS: Bladder: Mass effect from the enlarged prostate gland. Reproductive: Pancreatic enlargement demonstrates mass effect on the base of the bladder. Appendix: The air filled appendix is of normal caliber (series 2, image 117) . ABDOMEN and PELVIS: Stomach and bowel: No obstruction. No mucosal thickening. Diverticulosis, without inflammation. Peritoneum: No significant fluid collection. No free air. Lymph nodes: No pathologically enlarged lymph nodes. Vasculature: Calcified atherosclerotic disease. Bones: No acute fracture. IMPRESSION: Findings within segment 7 of the liver and which represent a cavernous hemangioma. Parapelvic cysts within the left kidney.
[2017-05-08 23:17] VITALS: PULSE 80
--- NOTE | 2017-05-09 06:55 | CP.PCM.PN ---
Subjective - Date & Time of Evaluation Date of Evaluation: 05/09/17 Time of Evaluation: 06:00 - Subjective Subjective: Medicine Note for Dr. Monserrat Veronica Patient was seen and examined at bedside. Objective - Vital Signs/Intake and Output Vital Signs (last 24 hours): Temp Pulse Resp BP Pulse Ox 98.5 F 80 20 148/80 98 05/08/17 23:16 05/08/17 23:16 05/08/17 23:16 05/08/17 23:16 05/08/17 23:16 Intake and Output: 05/08/17 05/09/17 18:59 06:59 Intake Total 240 Balance 240 - Medications Medications: Current Medications Enoxaparin Sodium (Lovenox) 40 mg SC DAILY [facility] Last Admin: 05/08/17 17:51 Dose: 40 mg Finasteride (Proscar) 5 mg PO DAILY [facility] Last Admin: 05/08/17 18:00 Dose: 5 mg Hydrochlorothiazide (Hydrodiuril) 25 mg PO DAILY [facility] Last Admin: 05/08/17 14:41 Dose: 25 mg Ketorolac Tromethamine (Toradol) 15 mg IVP Q8H PRN PRN Reason: Pain, severe (8-10) Losartan Potassium (Cozaar) 50 mg PO DAILY [facility] Last Admin: 05/08/17 14:41 Dose: 50 mg Pantoprazole Sodium (Protonix Ec Tab) 40 mg PO DAILY [facility] Last Admin: 05/08/17 14:42 Dose: 40 mg Pneumococcal Polyvalent Vaccine (Pneumovax 23 Vaccine) 0.5 ml IM .ONCE ONE Stop: 05/10/17 10:01 Tamsulosin HCl (Flomax) 0.4 mg PO DAILY [facility] Last Admin: 05/08/17 17:51 Dose: 0.4 mg - Labs Labs: 05/08/17 10:33 05/08/17 10:33 - Constitutional Appears: No Acute Distress - Head Exam Head Exam: NORMAL INSPECTION, NORMOCEPHALIC - Eye Exam Eye Exam: EOMI, Normal appearance, PERRL Pupil Exam: NORMAL ACCOMODATION - ENT Exam ENT Exam: Mucous Membranes Moist, Normal Exam - Neck Exam Neck Exam: Normal Inspection. absent: Lymphadenopathy, Thyromegaly - Respiratory Exam Respiratory Exam: Clear to Ausculation Bilateral, NORMAL BREATHING PATTERN. absent: Accessory Muscle Use, Decreased Breath Sounds, Wheezes, Respiratory Distress - Cardiovascular Exam Cardiovascular Exam: REGULAR RHYTHM, RRR, +S1, +S2 - GI/Abdominal Exam GI & Abdominal Exam: Soft, Normal Bowel Sounds. absent: Distended, Tenderness - Extremities Exam Extremities Exam: Normal Inspection. absent: Pedal Edema, Tenderness - Neurological Exam Neurological Exam: Alert, Awake, Oriented x3 - Psychiatric Exam Psychiatric exam: Normal Affect, Normal Mood - Skin Skin Exam: Dry, Intact, Normal Color, Warm Assessment and Plan - Assessment and Plan (Free Text) Plan: Hydronephrosis * Urology Consulted - Dr. Hetal Sanderson - help appreciated * Abdominal/ Bladder US (05/08/17): Solid- appearing hypoecho right hepatic lobe mass measures 2.9 x 1.9 x 2.7 cm. Severe left sided hydronephrosis. No obstructing calculus. Two, 2mm echogenic gallbladder foci consistent with polyps. 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 Bladder: mass effect from the enlarged prostate gland. Pancreatic enlargment demonstrates mass effect on the base of the bladder. Parapelvic cysts with left kidney. * Flomax and Proscar Urinary retention * Urology Consulted - Dr. Hetal Sanderson - lisa appreciated * F/U PSA, PSA % and free, urine cytology, urine culture, bladder scans * Flomax and Proscar Liver mass * GI Consulted - Dr. aVldovinos - lisa appreciated * CT Abdominal/ Pelvis(05/08/17): Cavernous hemangioma seen in segment 7, measuring 3cm in greatest dimension. Bladder: mass effect from the enlarged prostate gland. Pancreatic enlargment demonstrates mass effect on the base of the bladder. Parapelvic cysts with left kidney. * F/U: AFP, CA 19.9, CEA * Prior Studies: * 05/02/16 - EGD/Colonoscopy: Findings: small hiatal hernia, 2 nonbleeding crater gastric ulcers found in gastric antrum and lesser curvature - biopsy taken, decreased anal sphincter tone, multiple diverticula in sigmoid/descending /transverse colon, nonbleeding grade 1 internal hemmorrhoids, 2mm flat polyp in rectum - removed by cold biopsy forceps. * Pathology revealed: gastritis, + H. Pylori, rectal polyp = hyperplastic polyp Anemia * Workup performed on last admission 04/2016 revealed iron deficiency anemia. Patient was given IV ferrlicit x 5 days * Heme/Onc- Dr. Mcintyre consulted - help appreciated * F/U repeated anemia work up, iron studies, retic count, B12, Folate, Haptoglobin, Methmyalonic acid, stool ob x3, ferritin, LDH, peripheral smear, LDH * Ferrlicit 125mg IVP daily x 5 days (last dose 05/14/17) History of pulmonary embolism * 05/02/16 - CT Angio - small focal filling defects seen within distal segmental/ proximal subsegmental branch of the right upper lobe pulmonary artery on series 2 images 76-80 suggestive for small focal pulmonary embolism. Additional more questionable small filling defect within a subsegmental branch of the left upper lobe pulmonary artery seen on series 2, image 65 concerning for a possible small pulmonary embolism (please see full report). * ECHO 04/2016: EF 65%, Normal LV fxn w/ basal-inferoseptal wall akinetic. * As per Dr. Mcintyre, patient was discharged on Pradaxa 150 mg PO BID and followed up as outpatient * Heme/Onc- Dr. Mcintyre consulted - help appreciated * F/U BONE SCAN HTN (hypertension) * Continue home Losartan 50mg PO daily and HCTZ 25mg PO daily Prophylactic measure * GI PPX: Protonix 40mg daily * DVT PPX: Lovenox 40mg SC daily, SCDs * PT/OT Eval * Palliative Care consulted * Heart Healthy Diet DW Dr. Monserrat Veronica, Priyanka BLANCO, PGY-1
[2017-05-09 07:57] VITALS: BP 141/84; TEMP 98.2; O2SAT 97
[2017-05-09 08:16] LABS: BASO % 0.1 % (0.0-2.0); EOS # 0.2 K/uL (0.0-0.7); EOS % 3.1 % (0.0-4.0); HEMATOCRIT 33.5 % (35.0-51.0); LYMPH # 2.1 K/uL (1.0-4.3); LYMPH % 33.3 % (20.0-40.0); MEAN CELL VOLUME 69.5 fL (80.0-94.0); MEAN CORPUSCULAR HEMOGLOBIN 22.1 pg (27.0-31.0); MEAN CORPUSCULAR HGB CONC 31.8 g/dL (33.0-37.0); MEAN PLATELET VOLUME 8.8 fL (7.2-11.7); MONO # 0.4 K/uL (0.0-0.8); MONO % 6.3 % (0.0-10.0); NRBC % 0.1 % (0.0-2.0); RED CELL DISTRIBUTION WIDTH 22.5 % (11.5-14.5); RETIC% 1.6 % (0.5-1.5); WHITE BLOOD COUNT 6.3 K/uL (4.8-10.8)
[2017-05-09 08:51] LABS: CHLORIDE 97 mmol/L (98-107); POTASSIUM 4.7 mmol/L (3.6-5.2); SODIUM 135 mmol/L (132-148)
[2017-05-09 08:53] LABS: GFR AFRICAN-AMERICAN > 60
[2017-05-09 08:54] LABS: AST/SGOT 46 U/L (17-59); BILIRUBIN,DIRECT 0.3 mg/dL (0.0-0.4); BILIRUBIN,TOTAL 0.7 mg/dL (0.2-1.3); CARBON DIOXIDE 28 mmol/L (22-30); TOTAL PROTEIN 8.2 g/dL (6.3-8.3)
[2017-05-09 08:56] LABS: ALKALINE PHOSPHATASE 115 U/L (38-126); ALT/SGPT 30 U/L (21-72); BLOOD UREA NITROGEN 7 mg/dL (9-20); CALCIUM 9.1 mg/dl (8.6-10.4); GLUCOSE,RANDOM 98 mg/dL (75-110); MAGNESIUM 1.9 mg/dL (1.6-2.3); PHOSPHOROUS 3.3 mg/dL (2.5-4.5)
[2017-05-09] MEDS ORDERED: Sodium Chloride 0.9% 1,000 ML IV SCH (09:15)
[2017-05-09 09:35] LABS: PROSTATE SPECIFIC ANTIGEN 1.28 ng/mL (0.00-4.0)
[2017-05-09 09:39] LABS: CA 19-9 < 1.4 U/mL (0-37)
--- NOTE | 2017-05-09 09:40 | CP.PCM.CON ---
History of Present Illness - History of Present Illness History of Present Illness: Consult note for Dr. Mcintyre Patient is a 76 year old male with past medical history of hypertension and a history of PE, who was sent by his PMD, Dr. Vizcarra for CTA findings. Patient was previously been treated at [facility] for a PE and sent home on Pradaxa in 2016. Patient had a repeat CTA, which showed no evidence of PE, but did show possible left hydronephrosis and cysts, hypodense liver mass in the right lobe, and possible osteoporosis. Patient reports he has had blood in his stool in the past, but has not had recent episodes. Patient reports feeling well today and has no complaints. He denies having abdominal or flank pain, blood in stool, chest pain, headaches, difficulty breathing, nausea, vomiting, and fevers. PMHx: HTN, PE, iron deficiency anemia (as per past medical records) SurgHx: colonoscopy/endoscopy 2016 (As per EMR- diverticulosis, non-bleeding internal hemorrhoids,one 2mm polyp- resected; Endoscopy- small hiatal hernia, gastric ulcers) FamHx: denies Hem/Onc: Hx of PE (2016) SocHx: denies tobacco, alcohol, and drug use; Worked at a [employer]. Allergies: NKDA Medications: See EMR Review of Systems - Constitutional Constitutional: absent: Fever, Headache, Weakness - EENT Ears: absent: Dizziness - Cardiovascular Cardiovascular: absent: Chest Pain, Dyspnea - Respiratory Respiratory: absent: Dyspnea - Gastrointestinal Gastrointestinal: absent: Abdominal Pain, Constipation, Diarrhea, Hematochezia, Nausea, Vomiting - Neurological Neurological: absent: Dizziness, Headaches - Hematologic/Lymphatic Hematologic: absent: Easy Bleeding Past Patient History - Infectious Disease Hx of Infectious Diseases: None - Past Medical History & Family History Past Medical History?: Yes - Past Social History Smoking Status: Never Smoked - CARDIAC Hx Hypertension: Yes - PULMONARY Hx Pulmonary Embolism: Yes - NEUROLOGICAL Hx Neurological Disorder: No - HEENT Hx HEENT Problems: Yes Hx Cataracts: Yes - RENAL Hx Chronic Kidney Disease: No - ENDOCRINE/METABOLIC Hx Endocrine Disorders: No - HEMATOLOGICAL/ONCOLOGICAL Hx Anemia: Yes - INTEGUMENTARY Hx Dermatological Problems: No - MUSCULOSKELETAL/RHEUMATOLOGICAL Hx Back Pain: Yes - GASTROINTESTINAL Hx Gastrointestinal Disorders: No - GENITOURINARY/GYNECOLOGICAL Hx Genitourinary Disorders: No - PSYCHIATRIC Hx Substance Use: No - SURGICAL HISTORY Hx Surgeries: No - ANESTHESIA Hx Anesthesia: Yes Hx Anesthesia Reactions: No Hx Malignant Hyperthermia: No Has any member of the family had a problem w/ anesthesia?: No Meds Allergies/Adverse Reactions: Allergies Allergy/AdvReac Type Severity Reaction Status Date / Time No Known Allergies Allergy Verified 05/08/17 09:47 - Medications Medications: Current Medications Enoxaparin Sodium (Lovenox) 40 mg SC DAILY [facility] Last Admin: 05/08/17 17:51 Dose: 40 mg Ferric Sodium Gluconate Complex (Ferrlecit) 125 mg IVPB DAILY [facility] Stop: 05/14/17 10:01 Finasteride (Proscar) 5 mg PO DAILY [facility] Last Admin: 05/08/17 18:00 Dose: 5 mg Hydrochlorothiazide (Hydrodiuril) 25 mg PO DAILY [facility] Last Admin: 05/08/17 14:41 Dose: 25 mg Sodium Chloride (Sodium Chloride 0.9%) 1,000 mls @ 100 mls/hr IV .Q10H [facility] Ketorolac Tromethamine (Toradol) 15 mg IVP Q8H PRN PRN Reason: Pain, severe (8-10) Losartan Potassium (Cozaar) 50 mg PO DAILY [facility] Last Admin: 05/08/17 14:41 Dose: 50 mg Pantoprazole Sodium (Protonix Ec Tab) 40 mg PO DAILY [facility] Last Admin: 05/08/17 14:42 Dose: 40 mg Pneumococcal Polyvalent Vaccine (Pneumovax 23 Vaccine) 0.5 ml IM .ONCE ONE Stop: 05/10/17 10:01 Tamsulosin HCl (Flomax) 0.4 mg PO DAILY [facility] Last Admin: 05/08/17 17:51 Dose: 0.4 mg Physical Exam - Constitutional Appears: Well - Head Exam Head Exam: ATRAUMATIC, NORMAL INSPECTION - Eye Exam Eye Exam: EOMI, Normal appearance - ENT Exam ENT Exam: Mucous Membranes Moist - Respiratory Exam Respiratory Exam: Clear to Auscultation Bilateral, NORMAL BREATHING PATTERN. absent: Rhonchi, Wheezes, Respiratory Distress - Cardiovascular Exam Cardiovascular Exam: REGULAR RHYTHM, +S1, +S2 - GI/Abdominal Exam GI & Abdominal Exam: Normal Bowel Sounds, Soft. absent: Distended, Tenderness - Extremities Exam Extremities exam: Positive for: normal inspection. Negative for: pedal edema, tenderness - Neurological Exam Neurological exam: Alert, Oriented x3 - Psychiatric Exam Psychiatric exam: Normal Affect, Normal Mood - Skin Skin Exam: Dry, Intact, Normal Color, Warm Results - Vital Signs Recent Vital Signs: Last Vital Signs Temp 98.2 F 05/09/17 07:55 Pulse 80 05/09/17 07:55 Resp 20 05/09/17 07:55 BP 141/84 05/09/17 07:55 Pulse Ox 97 05/09/17 07:55 - Labs Result Diagrams: 05/09/17 08:06 05/09/17 08:06 Labs: Laboratory Results - last 24 hr 05/08/17 05/08/17 05/08/17 10:33 10:33 10:33 WBC 8.4 RBC 4.68 Hgb 10.3 L Hct 32.6 L MCV 69.6 L MCH 22.1 L MCHC 31.7 L RDW 22.4 H Plt Count 399 MPV 7.7 Neut % (Auto) 59.3 Lymph % (Auto) 29.8 Haskell % (Auto) 8.4 Eos % (Auto) 2.4 Baso % (Auto) 0.1 Neut # 5.0 Lymph # 2.5 Haskell # 0.7 Eos # 0.2 Baso # 0.0 Differential Comment Retic Count Sodium 135 Potassium 4.3 Chloride 98 Carbon Dioxide 24 Anion Gap 17 BUN 8 L Creatinine 0.8 Est GFR ( Amer) > 60 Est GFR (Non-Af Amer) > 60 Random Glucose 70 L Calcium 9.0 Phosphorus Magnesium Iron TIBC % Saturation Total Bilirubin 0.6 Direct Bilirubin AST 25 ALT 31 Alkaline Phosphatase 105 Lactate Dehydrogenase Total Protein 8.0 Albumin 4.1 Globulin 4.0 H Albumin/Globulin Ratio 1.0 Lipase 100 Alpha Fetoprotein Carcinoembryonic Ag Prostate Specific Ag Urine Color Yellow Urine Clarity Clear Urine pH 8.0 Ur Specific E[place] 1.009 Urine Protein Negative Urine Glucose (UA) Normal Urine Ketones Negative Urine Blood Negative Urine Nitrate Negative Urine Bilirubin Negative Urine Urobilinogen Normal Ur Leukocyte Esterase Neg Urine WBC (Auto) < 1 Urine RBC (Auto) < 1 Ur Squamous Epith Cells < 1 05/08/17 05/09/17 05/09/17 17:14 08:06 08:06 WBC 6.3 RBC 4.82 Hgb 10.6 L Hct 33.5 L MCV 69.5 L MCH 22.1 L MCHC 31.8 L RDW 22.5 H Plt Count 404 H MPV 8.8 Neut % (Auto) 57.2 Lymph % (Auto) 33.3 Haskell % (Auto) 6.3 Eos % (Auto) 3.1 Baso % (Auto) 0.1 Neut # 3.6 Lymph # 2.1 Haskell # 0.4 Eos # 0.2 Baso # 0.0 Differential Comment Retic Count 1.6 H Sodium 135 Potassium 4.7 Chloride 97 L Carbon Dioxide 28 Anion Gap 15 BUN 7 L Creatinine 0.9 Est GFR ( Amer) > 60 Est GFR (Non-Af Amer) > 60 Random Glucose 98 Calcium 9.1 Phosphorus 3.3 Magnesium 1.9 Iron 14 L TIBC 403 % Saturation 3 L Total Bilirubin 0.7 Direct Bilirubin 0.3 AST 46 ALT 30 Alkaline Phosphatase 115 Lactate Dehydrogenase 430 Total Protein 8.2 Albumin 4.1 Globulin 4.1 H Albumin/Globulin Ratio 1.0 Lipase Alpha Fetoprotein Carcinoembryonic Ag 1.0 Prostate Specific Ag 1.28 Urine Color Urine Clarity Urine pH Ur Specific [place] Urine Protein Urine Glucose (UA) Urine Ketones Urine Blood Urine Nitrate Urine Bilirubin Urine Urobilinogen Ur Leukocyte Esterase Urine WBC (Auto) Urine RBC (Auto) Ur Squamous Epith Cells 05/09/17 08:06 WBC RBC Hgb Hct MCV MCH MCHC RDW Plt Count MPV Neut % (Auto) Lymph % (Auto) [place] % (Auto) Eos % (Auto) Baso % (Auto) Neut # Lymph # Haskell # Eos # Baso # Differential Comment Retic Count Sodium Potassium Chloride Carbon Dioxide Anion Gap BUN Creatinine Est GFR ( Amer) Est GFR (Non-Af Amer) Random Glucose Calcium Phosphorus Magnesium Iron TIBC % Saturation 5 L Total Bilirubin Direct Bilirubin AST ALT Alkaline Phosphatase Lactate Dehydrogenase Total Protein Albumin Globulin Albumin/Globulin Ratio Lipase Alpha Fetoprotein 4.2 Carcinoembryonic Ag Prostate Specific Ag Urine Color Urine Clarity Urine pH Ur Specific [place] Urine Protein Urine Glucose (UA) Urine Ketones Urine Blood Urine Nitrate Urine Bilirubin Urine Urobilinogen Ur Leukocyte Esterase Urine WBC (Auto) Urine RBC (Auto) Ur Squamous Epith Cells Assessment & Plan (1) Anemia Assessment and Plan: Iron deficiency anemia. Started Ferrilicit 125 daily for 5 days. Consider UA for hematuria. GI workup in progress. Status: Chronic
[2017-05-09] MEDS ORDERED: Ferric Sodium Gluconat Complex 62.5 mg/5 ml Vial IVPB SCH (10:00)
[2017-05-09] MEDS: Enoxaparin 40 mg Syringe SC SCH (10:16)
[2017-05-09] MEDS: Pantoprazole 40 mg EC Tab PO SCH (10:16)
--- NOTE | 2017-05-09 10:21 | CP.PCM.PN ---
Subjective - Date & Time of Evaluation Date of Evaluation: 05/09/17 Time of Evaluation: 10:19 - Subjective Subjective: No new c/o Review of CT Scan reveal a cavernous hemangioma of the liver with 100% periperal to central filling noted of contrast. Objective - Vital Signs/Intake and Output Vital Signs (last 24 hours): Temp Pulse Resp BP Pulse Ox 98.2 F 80 20 141/84 97 05/09/17 07:55 05/09/17 07:55 05/09/17 07:55 05/09/17 07:55 05/09/17 07:55 Intake and Output: 05/09/17 05/09/17 06:59 18:59 Intake Total 240 Balance 240 - Medications Medications: Current Medications Enoxaparin Sodium (Lovenox) 40 mg SC DAILY [facility] Last Admin: 05/09/17 10:16 Dose: 40 mg Ferric Sodium Gluconate Complex (Ferrlecit) 125 mg IVPB DAILY [facility] Stop: 05/14/17 10:01 Finasteride (Proscar) 5 mg PO DAILY [facility] Last Admin: 05/08/17 18:00 Dose: 5 mg Hydrochlorothiazide (Hydrodiuril) 25 mg PO DAILY [facility] Last Admin: 05/09/17 10:16 Dose: 25 mg Sodium Chloride (Sodium Chloride 0.9%) 1,000 mls @ 100 mls/hr IV .Q10H [facility] Last Admin: 05/09/17 10:15 Dose: 100 mls/hr Ketorolac Tromethamine (Toradol) 15 mg IVP Q8H PRN PRN Reason: Pain, severe (8-10) Losartan Potassium (Cozaar) 50 mg PO DAILY [facility] Last Admin: 05/09/17 10:16 Dose: 50 mg Pantoprazole Sodium (Protonix Ec Tab) 40 mg PO DAILY [facility] Last Admin: 05/09/17 10:16 Dose: 40 mg Pneumococcal Polyvalent Vaccine (Pneumovax 23 Vaccine) 0.5 ml IM .ONCE ONE Stop: 05/10/17 10:01 Tamsulosin HCl (Flomax) 0.4 mg PO DAILY [facility] Last Admin: 05/09/17 10:16 Dose: 0.4 mg - Labs Labs: 05/09/17 08:06 05/09/17 08:06 - Constitutional Appears: No Acute Distress - Head Exam Head Exam: ATRAUMATIC, NORMOCEPHALIC - Respiratory Exam Respiratory Exam: NORMAL BREATHING PATTERN - Cardiovascular Exam Cardiovascular Exam: REGULAR RHYTHM, +S1 - GI/Abdominal Exam GI & Abdominal Exam: Soft, Normal Bowel Sounds. absent: Tenderness, Organomegaly - Extremities Exam Extremities Exam: Normal Inspection Assessment and Plan (1) H/O peptic ulcer Status: Resolved (2) H/O adenomatous polyp of colon Status: Inactive (3) Liver mass Assessment & Plan: CT Scan findings reviewed and no further work up is indicated. NO biopsy to be done of a vascular lesion in the liver. Check tumor markers though I would expect them to be normal. Status: Acute (4) Anemia Status: Chronic (5) Helicobacter pylori [H. pylori] as the cause of diseases classified elsewhere Assessment & Plan: Check H pylori fecal antigen and treat if still positive with 14 day course of therapy. Status: Chronic (6) Cavernous hemangioma Assessment & Plan: CT findings c/w this etiology of lliver mass No further workup needed. Will follow as needed. Recall prn. Thank you!! Status: Acute
--- NOTE | 2017-05-09 14:04 | CP.PCM.DIS ---
<Gilda Mathew - Last Filed: 05/09/17 14:27> Provider - Provider Date of Admission: 05/08/17 12:59 Attending physician: Walker Ruiz DO Time Spent in preparation of Discharge (in minutes): 55 Hospital Course - Lab Results Lab Results: Most Recent Lab Values WBC 6.3 K/uL (4.8-10.8) 05/09/17 08:06 RBC 4.82 Mil/uL (4.40-5.90) 05/09/17 08:06 Hgb 10.6 g/dL (12.0-18.0) L 05/09/17 08:06 Hct 33.5 % (35.0-51.0) L 05/09/17 08:06 MCV 69.5 fL (80.0-94.0) L 05/09/17 08:06 MCH 22.1 pg (27.0-31.0) L 05/09/17 08:06 MCHC 31.8 g/dL (33.0-37.0) L 05/09/17 08:06 RDW 22.5 % (11.5-14.5) H 05/09/17 08:06 Plt Count 404 K/uL (130-400) H 05/09/17 08:06 MPV 8.8 fL (7.2-11.7) 05/09/17 08:06 Neut % (Auto) 57.2 % (50.0-75.0) 05/09/17 08:06 Lymph % (Auto) 33.3 % (20.0-40.0) 05/09/17 08:06 [place] % (Auto) 6.3 % (0.0-10.0) 05/09/17 08:06 Eos % (Auto) 3.1 % (0.0-4.0) 05/09/17 08:06 Baso % (Auto) 0.1 % (0.0-2.0) 05/09/17 08:06 Neut # 3.6 K/uL (1.8-7.0) 05/09/17 08:06 Lymph # 2.1 K/uL (1.0-4.3) 05/09/17 08:06 [place] # 0.4 K/uL (0.0-0.8) 05/09/17 08:06 Eos # 0.2 K/uL (0.0-0.7) 05/09/17 08:06 Baso # 0.0 K/uL (0.0-0.2) 05/09/17 08:06 Differential Comment 05/08/17 10:33 Retic Count 1.6 % (0.5-1.5) H 05/09/17 08:06 Sodium 135 mmol/L (132-148) 05/09/17 08:06 Potassium 4.7 mmol/L (3.6-5.2) 05/09/17 08:06 Chloride 97 mmol/L (98-107) L 05/09/17 08:06 Carbon Dioxide 28 mmol/L (22-30) 05/09/17 08:06 Anion Gap 15 (10-20) 05/09/17 08:06 BUN 7 mg/dL (9-20) L 05/09/17 08:06 Creatinine 0.9 mg/dL (0.8-1.5) 05/09/17 08:06 Est GFR ( Amer) > 60 05/09/17 08:06 Est GFR (Non-Af Amer) > 60 05/09/17 08:06 Random Glucose 98 mg/dL (75-110) 05/09/17 08:06 Calcium 9.1 mg/dl (8.6-10.4) 05/09/17 08:06 Phosphorus 3.3 mg/dL (2.5-4.5) 05/09/17 08:06 Magnesium 1.9 mg/dL (1.6-2.3) 05/09/17 08:06 Iron 14 ug/dL (49-181) L 05/08/17 17:14 TIBC 403 ug/dL (250-450) 05/08/17 17:14 % Saturation 5 (20-55) L 05/09/17 08:06 Ferritin 5.9 ng/mL 05/09/17 08:06 Total Bilirubin 0.7 mg/dL (0.2-1.3) 05/09/17 08:06 Direct Bilirubin 0.3 mg/dL (0.0-0.4) 05/09/17 08:06 AST 46 U/L (17-59) 05/09/17 08:06 ALT 30 U/L (21-72) 05/09/17 08:06 Alkaline Phosphatase 115 U/L (38-126) 05/09/17 08:06 Lactate Dehydrogenase 430 U/L (313-618) 05/09/17 08:06 Total Protein 8.2 g/dL (6.3-8.3) 05/09/17 08:06 Albumin 4.1 g/dL (3.5-5.0) 05/09/17 08:06 Globulin 4.1 gm/dL (2.2-3.9) H 05/09/17 08:06 Albumin/Globulin Ratio 1.0 (1.0-2.1) 05/09/17 08:06 Lipase 100 U/L (23-300) 05/08/17 10:33 Alpha Fetoprotein 4.2 ng/mL (0.0-7.5) 05/09/17 08:06 Carcinoembryonic Ag 1.0 ng/mL (0-3.0) 05/09/17 08:06 CA 19-9 Antigen < 1.4 U/mL (0-37) 05/09/17 08:06 Prostate Specific Ag 1.28 ng/mL (0.00-4.0) 05/09/17 08:06 Vitamin B12 978 pg/mL (239-931) H 05/09/17 08:06 Urine Color Yellow (YELLOW) 05/08/17 10:33 Urine Clarity Clear (Clear) 05/08/17 10:33 Urine pH 8.0 (5.0-8.0) 05/08/17 10:33 Ur Specific [place] 1.009 (1.003-1.030) 05/08/17 10:33 Urine Protein Negative mg/dL (NEGATIVE) 05/08/17 10:33 Urine Glucose (UA) Normal mg/dL (Normal) 05/08/17 10:33 Urine Ketones Negative mg/dL (NEGATIVE) 05/08/17 10:33 Urine Blood Negative (NEGATIVE) 05/08/17 10:33 Urine Nitrate Negative (NEGATIVE) 05/08/17 10:33 Urine Bilirubin Negative (NEGATIVE) 05/08/17 10:33 Urine Urobilinogen Normal mg/dL (0.2-1.0) 05/08/17 10:33 Ur Leukocyte Esterase Neg Joel/uL (Negative) 05/08/17 10:33 Urine WBC (Auto) < 1 /hpf (0-5) 05/08/17 10:33 Urine RBC (Auto) < 1 /hpf (0-3) 05/08/17 10:33 Ur Squamous Epith Cells < 1 /hpf (0-5) 05/08/17 10:33 Stool Occult Blood Negative (NEGATIVE) 05/09/17 13:22 - Hospital Course Hospital Course: Upon Admission: CC: Left sided flank pain HPI: Patient is a 76 year old male with a history of PE, HTN, and gastritis. He is here because he was sent by his PMD for further evaluation, due to findings of a repeat CT angiogram. He was previously treated at [facility] for a PE and discharged home with Pradaxa. Patient had a follow up CT scan last year which showed no evidence of PE please see emr for full report. However CT scan did show evidence of hydronephorosis, increasing size of a liver mass in the right lobe, and possible metastatic disease or osteoporosis. He says he has been having left flank pain for the past 3 months however the pain has worsened. He also complains of urinary frequency and decreased urine stream. He denies any fever, chills, unintentional weight loss, chest pain, fever, chills, diffaculty breathing, constipation, diarrhea, blood in stool, blood in urine, joint pain, swelling, rash, depression, or anxiety. 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 Vizcarra Throughout Hospital Course: Hydronephrosis * Urology Consulted - Dr. Hetal Sanderson - help appreciated * Abdominal/ Bladder US (05/08/17): Solid- appearing hypoecho right hepatic lobe mass measures 2.9 x 1.9 x 2.7 cm. Severe left sided hydronephrosis. No obstructing calculus. Two, 2mm echogenic gallbladder foci consistent with polyps. 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 Bladder: mass effect from the enlarged prostate gland. Pancreatic enlargment demonstrates mass effect on the base of the bladder. Parapelvic cysts with left kidney. * Flomax and Proscar Urinary retention * Urology Consulted - Dr. Hetal Sanderson - help appreciated * F/U PSA - 1.28, PSA % and free, urine cytology, urine culture, bladder scans - Dr. Vizcarra will follow this up. * Flomax and Proscar Cavernous hemangioma * GI Consulted - Dr. 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 Bladder: mass effect from the enlarged prostate gland. Pancreatic enlargment demonstrates mass effect on the base of the bladder. Parapelvic cysts with left kidney. * As per GI, Dr. Valdovinos, CT Scan findings reviewed and no further work up is indicated. NO biopsy to be done of a vascular lesion in the liver. Check tumor markers though I would expect them to be normal. * Tumor Markers: AFP- 4.2, CA 19.9- 1.4, CEA, 1.0 * Recommended colonoscopy in 2020, for history of adenomatous polyp * Prior Studies: * 05/02/16 - EGD/Colonoscopy: Findings: small hiatal hernia, 2 nonbleeding crater gastric ulcers found in gastric antrum and lesser curvature - biopsy taken, decreased anal sphincter tone, multiple diverticula in sigmoid/descending /transverse colon, nonbleeding grade 1 internal hemmorrhoids, 2mm flat polyp in rectum - removed by cold biopsy forceps. * Pathology revealed: gastritis, + H. Pylori, rectal polyp = hyperplastic polyp Anemia * Workup performed on last admission 04/2016 revealed iron deficiency anemia. Patient was given IV ferrlicit x 5 days * Heme/Onc- Dr. Mcintyre consulted - help appreciated * F/U repeated anemia work up, iron studies, retic count, B12, Folate, Haptoglobin, Methmyalonic acid, stool ob x3, ferritin, LDH, peripheral smear, LDH * Ferrlicit 125mg IVP daily x 5 days (last dose 05/14/17) - patient will be discharged with PO Iron and will follow up with Dr. Mcintyre as an outpatient. History of pulmonary embolism * 05/02/16 - CT Angio - small focal filling defects seen within distal segmental/ proximal subsegmental branch of the right upper lobe pulmonary artery on series 2 images 76-80 suggestive for small focal pulmonary embolism. Additional more questionable small filling defect within a subsegmental branch of the left upper lobe pulmonary artery seen on series 2, image 65 concerning for a possible small pulmonary embolism (please see full report). * ECHO 04/2016: EF 65%, Normal LV fxn w/ basal-inferoseptal wall akinetic. * As per Dr. Mcintyre, patient was discharged on Pradaxa 150 mg PO BID and followed up as outpatient * Heme/Onc- Dr. Mcintyre consulted - help appreciated * F/U BONE SCAN -Dr. Vizcarra will follow this up. HTN (hypertension) * Continue home Losartan 50mg PO daily and HCTZ 25mg PO daily This is a brief summary of the patient's hospital course, please review EMR. Discharge Plan - Discharge Medications Prescriptions: Ferrous Sulfate 325 mg PO DAILY #30 tablet Finasteride [Proscar] 5 mg PO DAILY #30 tab hydroCHLOROthiazide [Hydrodiuril] 25 mg PO DAILY #30 tab Losartan [Cozaar] 50 mg PO DAILY #30 tab Tamsulosin [Flomax] 0.4 mg PO DAILY #30 cap - Follow Up Plan Condition: STABLE Disposition: HOME/ ROUTINE Instructions: Iron Supplements (By mouth), Hydrochlorothiazide (By mouth), Finasteride (By mouth), Losartan (By mouth), Tamsulosin (By mouth), Hydronephrosis (DC) Additional Instructions: Patient is to follow up with Primary care physician, Dr. Vizcarra within [address] Vizcarra, obtain H.pylori fecal test, repeat colonoscopy in 2020 - for history of adenomatous polyp. Repeat ultrasound of kidneys in 6 months, to evaluate bilateral renal cysts. Follow up with Dr. Richardson Mcintyre for history of iron deficiency anemia. Follow up with Urology, for further evaluation of history of enlarged prostate and urinary retention, possible BPH. Please come back to the ED if your symptoms worsen or return. El paciente debe hacer el seguimiento con el mdico de atencin primaria, el Dr. Vizcarra dentro de rachel semana. A travs del Dr. Vizcarra, obtenga la prueba fecal de H.pylori, repita la colonoscopia en 2020 - para la historia de plipo adenomatoso. Repetir la ecografa de los riones en 6 meses, para evaluar los quistes renales bilaterales. Seguimiento con el Dr. Richardson Mcintyre para la historia de anemia por deficiencia de navid. Seguimiento con Urologa, para rachel mayor evaluacin de la historia de prstata agrandada y retencin urinaria, posible HBP. Por favor regrese a la [place] si marquita sntomas empeoran o regresan. Referrals: Robert Vizcarra MD [Staff Provider] - <Juan Jose Veronica - Last Filed: 05/09/17 16:42> Provider - Provider Date of Admission: 05/08/17 12:59 Attending physician: Walker Ruiz DO Hospital Course - Lab Results Lab Results: Most Recent Lab Values WBC 6.3 K/uL (4.8-10.8) 05/09/17 08:06 RBC 4.82 Mil/uL (4.40-5.90) 05/09/17 08:06 Hgb 10.6 g/dL (12.0-18.0) L 05/09/17 08:06 Hct 33.5 % (35.0-51.0) L 05/09/17 08:06 MCV 69.5 fL (80.0-94.0) L 05/09/17 08:06 MCH 22.1 pg (27.0-31.0) L 05/09/17 08:06 MCHC 31.8 g/dL (33.0-37.0) L 05/09/17 08:06 RDW 22.5 % (11.5-14.5) H 05/09/17 08:06 Plt Count 404 K/uL (130-400) H 05/09/17 08:06 MPV 8.8 fL (7.2-11.7) 05/09/17 08:06 Neut % (Auto) 57.2 % (50.0-75.0) 05/09/17 08:06 Lymph % (Auto) 33.3 % (20.0-40.0) 05/09/17 08:06 [place] % (Auto) 6.3 % (0.0-10.0) 05/09/17 08:06 Eos % (Auto) 3.1 % (0.0-4.0) 05/09/17 08:06 Baso % (Auto) 0.1 % (0.0-2.0) 05/09/17 08:06 Neut # 3.6 K/uL (1.8-7.0) 05/09/17 08:06 Lymph # 2.1 K/uL (1.0-4.3) 05/09/17 08:06 [place] # 0.4 K/uL (0.0-0.8) 05/09/17 08:06 Eos # 0.2 K/uL (0.0-0.7) 05/09/17 08:06 Baso # 0.0 K/uL (0.0-0.2) 05/09/17 08:06 Differential Comment 05/08/17 10:33 Retic Count 1.6 % (0.5-1.5) H 05/09/17 08:06 Sodium 135 mmol/L (132-148) 05/09/17 08:06 Potassium 4.7 mmol/L (3.6-5.2) 05/09/17 08:06 Chloride 97 mmol/L (98-107) L 05/09/17 08:06 Carbon Dioxide 28 mmol/L (22-30) 05/09/17 08:06 Anion Gap 15 (10-20) 05/09/17 08:06 BUN 7 mg/dL (9-20) L 05/09/17 08:06 Creatinine 0.9 mg/dL (0.8-1.5) 05/09/17 08:06 Est GFR ( Amer) > 60 05/09/17 08:06 Est GFR (Non-Af Amer) > 60 05/09/17 08:06 Random Glucose 98 mg/dL (75-110) 05/09/17 08:06 Calcium 9.1 mg/dl (8.6-10.4) 05/09/17 08:06 Phosphorus 3.3 mg/dL (2.5-4.5) 05/09/17 08:06 Magnesium 1.9 mg/dL (1.6-2.3) 05/09/17 08:06 Iron 14 ug/dL (49-181) L 05/08/17 17:14 TIBC 403 ug/dL (250-450) 05/08/17 17:14 % Saturation 5 (20-55) L 05/09/17 08:06 Ferritin 5.9 ng/mL 05/09/17 08:06 Total Bilirubin 0.7 mg/dL (0.2-1.3) 05/09/17 08:06 Direct Bilirubin 0.3 mg/dL (0.0-0.4) 05/09/17 08:06 AST 46 U/L (17-59) 05/09/17 08:06 ALT 30 U/L (21-72) 05/09/17 08:06 Alkaline Phosphatase 115 U/L (38-126) 05/09/17 08:06 Lactate Dehydrogenase 430 U/L (313-618) 05/09/17 08:06 Total Protein 8.2 g/dL (6.3-8.3) 05/09/17 08:06 Albumin 4.1 g/dL (3.5-5.0) 05/09/17 08:06 Globulin 4.1 gm/dL (2.2-3.9) H 05/09/17 08:06 Albumin/Globulin Ratio 1.0 (1.0-2.1) 05/09/17 08:06 Lipase 100 U/L (23-300) 05/08/17 10:33 Alpha Fetoprotein 4.2 ng/mL (0.0-7.5) 05/09/17 08:06 Carcinoembryonic Ag 1.0 ng/mL (0-3.0) 05/09/17 08:06 CA 19-9 Antigen < 1.4 U/mL (0-37) 05/09/17 08:06 Prostate Specific Ag 1.28 ng/mL (0.00-4.0) 05/09/17 08:06 Vitamin B12 978 pg/mL (239-931) H 05/09/17 08:06 Urine Color Yellow (YELLOW) 05/08/17 10:33 Urine Clarity Clear (Clear) 05/08/17 10:33 Urine pH 8.0 (5.0-8.0) 05/08/17 10:33 Ur Specific [place] 1.009 (1.003-1.030) 05/08/17 10:33 Urine Protein Negative mg/dL (NEGATIVE) 05/08/17 10:33 Urine Glucose (UA) Normal mg/dL (Normal) 05/08/17 10:33 Urine Ketones Negative mg/dL (NEGATIVE) 05/08/17 10:33 Urine Blood Negative (NEGATIVE) 05/08/17 10:33 Urine Nitrate Negative (NEGATIVE) 05/08/17 10:33 Urine Bilirubin Negative (NEGATIVE) 05/08/17 10:33 Urine Urobilinogen Normal mg/dL (0.2-1.0) 05/08/17 10:33 Ur Leukocyte Esterase Neg Joel/uL (Negative) 05/08/17 10:33 Urine WBC (Auto) < 1 /hpf (0-5) 05/08/17 10:33 Urine RBC (Auto) < 1 /hpf (0-3) 05/08/17 10:33 Ur Squamous Epith Cells < 1 /hpf (0-5) 05/08/17 10:33 Stool Occult Blood Negative (NEGATIVE) 05/09/17 13:22 Attending/Attestation - Attestation I have personally seen and examined this patient.: Yes I have fully participated in the care of the patient.: Yes I have reviewed all pertinent clinical information, including history, physical exam and plan: Yes Notes (Text): 05/09/17 16:42 Patient was seen and examined with the resident. Exam, assessment and plan, and discharge plan were thoroughly gone over with the resident. Juan Jose Veronica D.O.
[2017-05-09] MEDS ORDERED: Influenza Vaccine 60 mcg/0.5 mL SYR (4YR UP) IM ONE (16:30)
[2017-05-09] MEDS ORDERED: Pneumococcal 23-Valent Vaccine IM ONE (16:30)
--- NOTE | 2017-05-09 17:08 | CP.PCM.CON ---
History of Present Illness - History of Present Illness History of Present Illness: cc: L hydronephrosis slow stream Full note t/f Past Patient History - Infectious Disease Hx of Infectious Diseases: None - Past Medical History & Family History Past Medical History?: Yes - Past Social History Smoking Status: Never Smoked - CARDIAC Hx Hypertension: Yes - PULMONARY Hx Pulmonary Embolism: Yes - NEUROLOGICAL Hx Neurological Disorder: No - HEENT Hx HEENT Problems: Yes Hx Cataracts: Yes - RENAL Hx Chronic Kidney Disease: No - ENDOCRINE/METABOLIC Hx Endocrine Disorders: No - HEMATOLOGICAL/ONCOLOGICAL Hx Anemia: Yes - INTEGUMENTARY Hx Dermatological Problems: No - MUSCULOSKELETAL/RHEUMATOLOGICAL Hx Back Pain: Yes - GASTROINTESTINAL Hx Gastrointestinal Disorders: No - GENITOURINARY/GYNECOLOGICAL Hx Genitourinary Disorders: No - PSYCHIATRIC Hx Substance Use: No - SURGICAL HISTORY Hx Surgeries: No - ANESTHESIA Hx Anesthesia: Yes Hx Anesthesia Reactions: No Hx Malignant Hyperthermia: No Has any member of the family had a problem w/ anesthesia?: No Meds Home Medications: Home Medication List Medication Instructions Recorded Confirmed Type Ferrous Sulfate 325 mg PO DAILY #30 tablet 05/09/17 Rx Finasteride [Proscar] 5 mg PO DAILY #30 tab 05/09/17 Rx Losartan [Cozaar] 50 mg PO DAILY #30 tab 05/09/17 Rx Tamsulosin [Flomax] 0.4 mg PO DAILY #30 cap 05/09/17 Rx hydroCHLOROthiazide [Hydrodiuril] 25 mg PO DAILY #30 tab 05/09/17 Rx Allergies/Adverse Reactions: Allergies Allergy/AdvReac Type Severity Reaction Status Date / Time No Known Allergies Allergy Verified 05/08/17 09:47 - Medications Medications: Current Medications Enoxaparin Sodium (Lovenox) 40 mg SC DAILY [facility] Last Admin: 05/09/17 10:16 Dose: 40 mg Ferric Sodium Gluconate Complex (Ferrlecit) 125 mg IVPB DAILY [facility] Stop: 05/14/17 10:01 Last Admin: 05/09/17 10:52 Dose: 125 mg Finasteride (Proscar) 5 mg PO DAILY [facility] Last Admin: 05/09/17 10:42 Dose: 5 mg Hydrochlorothiazide (Hydrodiuril) 25 mg PO DAILY [facility] Last Admin: 05/09/17 10:16 Dose: 25 mg Sodium Chloride (Sodium Chloride 0.9%) 1,000 mls @ 100 mls/hr IV .Q10H [facility] Last Admin: 05/09/17 10:15 Dose: 100 mls/hr Ketorolac Tromethamine (Toradol) 15 mg IVP Q8H PRN PRN Reason: Pain, severe (8-10) Losartan Potassium (Cozaar) 50 mg PO DAILY [facility] Last Admin: 05/09/17 10:16 Dose: 50 mg Pantoprazole Sodium (Protonix Ec Tab) 40 mg PO DAILY [facility] Last Admin: 05/09/17 10:16 Dose: 40 mg Tamsulosin HCl (Flomax) 0.4 mg PO DAILY [facility] Last Admin: 05/09/17 10:16 Dose: 0.4 mg Results - Vital Signs Recent Vital Signs: Last Vital Signs Temp 98.2 F 05/09/17 07:55 Pulse 80 05/09/17 07:55 Resp 20 05/09/17 07:55 BP 141/84 05/09/17 07:55 Pulse Ox 97 05/09/17 07:55 - Labs Result Diagrams: 05/09/17 08:06 05/09/17 08:06 Labs: Laboratory Results - last 24 hr 05/08/17 05/09/17 05/09/17 17:14 08:06 08:06 WBC 6.3 RBC 4.82 Hgb 10.6 L Hct 33.5 L MCV 69.5 L MCH 22.1 L MCHC 31.8 L RDW 22.5 H Plt Count 404 H MPV 8.8 Neut % (Auto) 57.2 Lymph % (Auto) 33.3 [place] % (Auto) 6.3 Eos % (Auto) 3.1 Baso % (Auto) 0.1 Neut # 3.6 Lymph # 2.1 [place] # 0.4 Eos # 0.2 Baso # 0.0 Retic Count 1.6 H Sodium 135 Potassium 4.7 Chloride 97 L Carbon Dioxide 28 Anion Gap 15 BUN 7 L Creatinine 0.9 Est GFR ( Amer) > 60 Est GFR (Non-Af Amer) > 60 Random Glucose 98 Calcium 9.1 Phosphorus 3.3 Magnesium 1.9 Iron 14 L TIBC 403 % Saturation 3 L Ferritin 5.9 Total Bilirubin 0.7 Direct Bilirubin 0.3 AST 46 ALT 30 Alkaline Phosphatase 115 Lactate Dehydrogenase 430 Total Protein 8.2 Albumin 4.1 Globulin 4.1 H Albumin/Globulin Ratio 1.0 Alpha Fetoprotein Carcinoembryonic Ag 1.0 CA 19-9 Antigen < 1.4 Prostate Specific Ag 1.28 Vitamin B12 978 H Stool Occult Blood 05/09/17 05/09/17 08:06 13:22 WBC RBC Hgb Hct MCV MCH MCHC RDW Plt Count MPV Neut % (Auto) Lymph % (Auto) [place] % (Auto) Eos % (Auto) Baso % (Auto) Neut # Lymph # [place] # Eos # Baso # Retic Count Sodium Potassium Chloride Carbon Dioxide Anion Gap BUN Creatinine Est GFR ( Amer) Est GFR (Non-Af Amer) Random Glucose Calcium Phosphorus Magnesium Iron TIBC % Saturation 5 L Ferritin Total Bilirubin Direct Bilirubin AST ALT Alkaline Phosphatase Lactate Dehydrogenase Total Protein Albumin Globulin Albumin/Globulin Ratio Alpha Fetoprotein 4.2 Carcinoembryonic Ag CA 19-9 Antigen Prostate Specific Ag Vitamin B12 Stool Occult Blood Negative Assessment & Plan - Assessment and Plan (Free Text) Assessment: IMP: HX OF LIVER MASS ANEMIA ENLARGED PROSTATE POSS BONE METASTASES HX OF PULMONARY EMBOLUS P/REC: DISCUSSED W PT AND RESIDENT STAFF PSA URINE FOR UA, CULTURE FURTHER W/U T/F YS - Date & Time Date: 05/08/17 Time: 15:30
--- NOTE | 2017-05-10 11:14 | NM ---
PROCEDURE: Whole Body Bone Scan HISTORY: metastatic lesions on CT scan. COMPARISON: 05/08/2017 CT abdomen and pelvis 05/08/2017 abdominal ultrasound bone there is severe repeat x-rays TECHNIQUE: Following administration of 22.1 mCi technetium 99 M MDP FINDINGS: Evidence for bony metastatic disease: None. Degenerative uptake: None. Physiologic uptake: Diminished accumulation of radionuclide in the right kidney, retention of radionuclide in the left kidney/renal pelvis consistent with findings on recent CT scan and abdominal ultrasound Other findings: None. IMPRESSION: No evidence of bony metastatic disease.
--- NOTE | 2017-05-13 03:45 | CON ---
DATE: 05/08/2017 Urology consultation is requested by Dr. Walker Ruiz. Urology consultation was filled by Dr. Sherrell Sanderson. REASON FOR CONSULTATION: Left hydronephrosis and liver mass. HISTORY OF PRESENT ILLNESS: The patient is a 76-year-old male admitted with left hydronephrosis and possible liver mass. The patient is in otherwise fair health. The patient developed abdominal pain and flank pain. The patient has CT scan as an outpatient last week. CAT scan demonstrates the left hydronephrosis. I was called by the admitting resident regarding this finding. Also possibly noted on the CT scan with a liver mass. The patient has history of pulmonary embolism. The patient has history of hypertension. The patient voided with good urinary stream, good control. No recent hematuria, dysuria. No fever or rigors. The patient has good urinary control. He has nocturia x2. There is no history of urolithiasis. No recent nausea or vomiting. The patient was also found to have a liver mass which is currently being evaluated. The patient reports fair appetite. The patient reports no history of urolithiasis. No family history of prostate cancer. The patient does not smoke or drink. PHYSICAL EXAMINATION: GENERAL: The patient is a well-developed, well-nourished elderly male. The patient is awake and alert. ABDOMEN: Soft, nontender, nondistended. No mass or organomegaly. GENITALIA: Without inflammation. RECTAL: Normal sphincter tone. Prostate is approximately 40-50 g in size. Prostate is firm and smooth and symmetric without fixation, induration or nodularity. LABORATORY DATA: To see attached reports. Anemia is noted. Renal function is normal. IMPRESSION: 1. Left hydronephrosis. 2. Hepatic mass. 3. Anemia. 4. The etiology of the hydronephrosis may be due to intrinsic or extrinsic ureteral or renal disease. There is no report of lymphadenopathy. RECOMMENDATIONS AND PLAN: Urine culture. Urine cytology. In view of the report of abnormal bone seen on CT scan, consider nuclear medicine bone scan. Serum PSA. Possible need for cystoscopy and retrograde pyelogram. Further therapy to follow according to the patient's clinical course as well as results of above. Thank you for recommending the patient for urology consultation. Sherrell Sanderson MD cc: Patient's chart and MD Walker Stevens DO Dr. Shukla
[2017-05-14 14:27] LABS: TOTAL PSA 1.1 ng/mL (<=4.0)
[2017-05-14 14:27] LABS: TOTAL PSA 1.1 ng/mL (<=4.0)
== END 2017-05-09 17:19 | disposition home or self-care (01) | DRG 694 ==
LOC: C.ER 09:40 → C.9E 12:59 → C.3T 14:39
PROVIDERS: ADMIT Hospitalist; ATTEND Hospitalist
DX: N13.30 Unspecified hydronephrosis (principal); D64.9 Anemia, unspecified; R31.9 Hematuria, unspecified; I10 Essential (primary) hypertension; Z86.711 Personal history of pulmonary embolism; R33.9 Retention of urine, unspecified; D18.03 Hemangioma of intra-abdominal structures; Z86.010 Personal history of colon polyps; M81.0 Age-related osteoporosis without current pathological fracture; D50.9 Iron deficiency anemia, unspecified

== ENCOUNTER 2018-03-11 08:18 | Inpatient (IN) | payer OTHER, MEDICARE ==
[2018-03-11 08:18] VITALS: BMI 29.9
[2018-03-11] MEDS ORDERED: Sodium Chloride 0.9% 1,000 ML IV ONE (08:37)
--- NOTE | 2018-03-11 08:37 | C.PDOC ---
History Of Present Illness Translation provided by court interpreter 77 year old male patient presents to the ER with c/o persistent headache, diarrhea and dizziness for 5 days. Patient reports he had multiple watery bowel movement and bloating. Patient states he lost balance when walking to use the bathroom 3 days ago and struck the back of his head and notes he still have persistent lightheadedness and headache since then. Patient denies bright red bleeding per rectum, nausea, vomiting, abdominal pain and dysuria. Patient also notes he did not take any pain medication. VIA TRANS CO PERSIST PARRISH, DIARRHEA, DIZZINESS X 5 DAYS. MULT WATERY BM, +BLOATING. NO BRBPR , NV, ABD PAIN. PS LOST BALANCE WHILE WAKING TO USE BATHROOM 3 DAYS AGO, STRUCK BACK OF HEAD. NO LOC AMBUL WO DIFF SINCE THEN. PS STILL W PERSIST LIGHTHEADEDNESS AND PARRISH. NO PAIN MEDS TRIED. URINATING WO DIFF. history of PE, HTN, gastritis, URINARY RETENTION DUE TO BPH, LIVER Cavernous hemangioma * 05/02/16 - EGD/Colonoscopy: Findings: small hiatal hernia, 2 nonbleeding crater gastric ulcers found in gastric antrum and lesser curvature - biopsy taken, decreased anal sphincter tone, multiple diverticula in sigmoid/descending /transverse colon, nonbleeding grade 1 internal hemmorrhoids, 2mm flat polyp in rectum - removed by cold biopsy forceps. * Pathology revealed: gastritis, + H. Pylori, rectal polyp = hyperplastic polyp * ECHO 04/2016: EF 65%, Normal LV fxn w/ basal-inferoseptal wall akinetic * * * EXAM NAD NONTOXIC HEENT ATRAUM NONTEND NECK SUPPLE NONTEND ABD MILD DIST SOFT NO R/G NONTEND SKIN MILD TENTING NEURO NO FOCAL DEF EXT ATRAUMA CV RRR REMAINDER NEG Time Seen by Provider: 03/11/18 08:32 Chief Complaint (Nursing): GI Problem History Per: Ophthalmology Assistant History/Exam Limitations: no limitations Onset/Duration Of Symptoms: Days (x5) Current Symptoms Are (Timing): Still Present Past Medical History Reviewed: Historical Data, Nursing Documentation, Vital Signs Vital Signs: Last Vital Signs Temp 100 F H 03/11/18 09:34 Pulse 103 H 03/11/18 08:24 Resp 18 03/11/18 08:24 BP 103/61 03/11/18 08:24 Pulse Ox 95 03/11/18 11:27 - Medical History PMH: Anemia, Back Problems (NECK PAIN), Diverticulitis (diverticulosis by exam 2015), Gastritis (H pylori + 2015), HTN, Pulmonary Embolism - [facility] Procedures EXCISION OF RECTUM, ENDO, DIAGN (04/30/16) EXCISION OF STOMACH, ENDO, DIAGN (04/30/16) Family History: States: Unknown Family Hx - Social History Hx Tobacco Use: No Hx Alcohol Use: Yes (holidays only) Hx Substance Use: No - Immunization History Hx Tetanus Toxoid Vaccination: No Hx Influenza Vaccination: No Hx Pneumococcal Vaccination: No Review Of Systems Except As Marked, All Systems Reviewed And Found Negative. Gastrointestinal: Positive for: Diarrhea. Negative for: Nausea, Vomiting, Abdominal Pain Genitourinary: Negative for: Dysuria, Other (BRBPR) Neurological: Positive for: Headache, Dizziness Physical Exam - Physical Exam Appears: Well, Non-toxic, No Acute Distress Skin: Normal Color, Warm, Dry, Other (mild tenting) Head: Atraumatic, Normacephalic, No Tenderness Eye(s): bilateral: Normal Inspection, PERRL, EOMI Ear(s): Bilateral: Normal Nose: Normal Oral Mucosa: Moist Throat: Normal Neck: Normal ROM, Supple, No Other (nontender) Chest: Symmetrical, No Deformity Cardiovascular: Rhythm Regular Respiratory: Normal Breath Sounds Gastrointestinal/Abdominal: Soft, No Tenderness, Distention (mild), No Guarding , No Rebound Back: No CVA Tenderness Extremity: Normal ROM (x4) Extremity: Bilateral: Atraumatic Neurological/Psych: Oriented x3, Normal Speech, Other (neuro intact; no focal deficit) Gait: Steady ED Course And Treatment - Laboratory Results Result Diagrams: 03/11/18 09:37 03/11/18 09:37 ECG: Interpreted By Me, Viewed By Me ECG Rhythm: Sinus Tachycardia (with PAC) Rate From EC O2 Sat by Pulse Oximetry: 95 (RA) Pulse Ox Interpretation: Normal - Radiology CXR: Interpreted by Me, Viewed By Me CXR Interpretation: Yes: No Acute Disease (nml; unchanged form 11/2017) - Other Rad CXR X-Ray: Read By Radiologist Interpretation: Accession No. : [id number]. Patient Name / ID : FRANKO HADDAD / [id number]. Exam Date : 03/11/2018 09:14:06 ( Approved ). Study Comment : Sex / Age : M / 77Y. Creator : Kenna Salamanca V. Dictator : Kenna Salamanca V. Senior Hr Business Partner : Puller Through : Kenna Salamanca V. Approver2 : Report Date : 03/11/2018 11:09:15. My Comment : . Date of service: 03/11/2018. HISTORY: Sepsis Patient. COMPARISON: Prior chest x-rays call. OB non portal it'll views. The most recent being in 12/30/2016 study. FINDINGS: LUNGS: No consolidation appreciated. PLEURA: No significant pleural effusion identified, no pneumothorax apparent. CARDIOVASCULAR: Mild cardiomegaly-similar. There is rounded margination to the right hilum not appreciated such on prior studies this could be technical current study being semi-erect portable others being frontal nonportable studies. If needed CT chest should clarify. OSSEOUS STRUCTURES: Bilateral shoulder arthrosis. VISUALIZED UPPER ABDOMEN: Normal. OTHER FINDINGS: None. IMPRESSION: Interval appearance to the right hilum unclear, if any, significance. Consider PA chest x-ray to compare for stability with other prior PA frontal views. Another option would be noncontrast CT chest imaging to resolve - CT Scan/US Head Other Rad Studies (CT/US): Read By Radiologist, Radiology Report Reviewed CT/US Interpretation: Accession No. : [id number]. Patient Name / ID : FRANKO HADDAD / [id number]. Exam Date : 03/11/2018 10:07:06 ( Approved ). Study Comment : Sex / Age : M / 77Y. Creator : Vi Bautista. Dictator : Taj Mckenzie MD. Senior Hr Business Partner : Puller Through : Taj Mckenzie MD. Approver2 : Report Date : 03/11/2018 10:07:08. My Comment : . Date of service: 03/11/2018. PROCEDURE: CT HEAD WITHOUT CONTRAST. HISTORY: TRAUMA. COMPARISON: None available. TECHNIQUE: Axial computed tomography images were obtained through the head/brain without intravenous contrast. Radiation dose: Total exam DLP = 831.14 mGy-cm. This CT exam was performed using one or more of the following dose reduction techniques: Automated exposure control, adjustment of the mA and/or kV according to patient size, and/or use of iterative reconstruction technique. FINDINGS: HEMORRHAGE: No intracranial hemorrhage. BRAIN: A punctate granuloma is appreciated at a superior right frontal gyrus. Minimal diffuse cerebral atrophy is appreciated as well as trace chronic microangiopathy which are age-appropriate. No mass effect. No cortical edema. Posterior fossa contents appear diffusely unremarkable including the brainstem. VENTRICLES: Unremarkable. No hydrocephalus. CALVARIUM: No destructive bony lesion or displaced fracture identified including through the skullbase. PARANASAL SINUSES: Unremarkable as visualized. No significant inflammatory changes. MASTOID AIR CELLS: Unremarkable as visualized. No inflammatory changes. OTHER FINDINGS: None. IMPRESSION: Limited age-related neuro degenerative findings are identified. No definite acute intracranial findings including fracture. Progress Note: Impression: persistent PARRISH, diarrhea, and dizziness. Plans: -- VBG. -- CT head. -- EKG. -- blood work. -- CXR. -- IV fluids. -- Tylenol. -- Blood cx. -- UCx. Reassess: Patient is resting comfortably. Tolerating PO. Patient advised to come back to ER if condition worsen and to f/u with PCP in 1-2 days. Progress - Re-Evaluation Re-evaluation Note: 03/11/18 11:15 PARRISH RESOLVED. VSS. PENDING BLADDER SCAN 03/11/18 11:27 D/W DR PEREZ C/F PMD. ADMIT TELE - Data Reviewed Data Reviewed: Lab, Diagnostic imaging, EKG, Old records Disposition Counseled Patient/Family Regarding: Studies Performed, Diagnosis - Disposition Disposition: HOSPITALIZED Disposition Time: 11:15 Condition: SERIOUS - POA Present On Arrival: Falls Or Trauma - Clinical Impression Clinical Impression: Acute renal insufficiency, Near syncope, Diarrhea - Scribe Statement The provider has reviewed the documentation as recorded by the Sheila Mckeon Do Provider Attestation: All medical record entries made by the Padmajaibe were at my direction and personally dictated by me. I have reviewed the chart and agree that the record accurately reflects my personal performance of the history, physical exam, medical decision making, and the department course for this patient. I have also personally directed, reviewed, and agree with the discharge instructions and disposition. Decision To Admit - Pt Status Changed To: Hospital Disposition Of: Inpatient - Admit Certification Admit to Inpatient:: After my assessment, the patient will require hospitalization for at least two midnights. This is because of the severity of symptoms shown, intensity of services needed, and/or the medical risk in this patient being treated as an outpatient. - InPatient: Physician Admission Certification: I certify that this patient requires 2 or more midnights of care for the following reason:: SEE NOTE - . Bed Request Type: Regular Admitting Physician: Guadalupe Perez Patient Diagnosis: Acute renal insufficiency, Near syncope, Diarrhea
[2018-03-11 09:35] LABS: VENOUS BLOOD GAS BASE EXCESS -4.7 mmol/L (0.0-2.0); VENOUS BLOOD GAS PCO2 37 mmHg (40-60); VENOUS BLOOD GAS PO2 30 mm/Hg (30-55); VENOUS BLOOD PH 7.35 (7.32-7.43)
[2018-03-11 09:47] LABS: BASO % 0.2 % (0.0-2.0); EOS % 0.2 % (0.0-4.0); LYMPH # 0.9 K/uL (1.0-4.3); LYMPH % 10.6 % (20.0-40.0); MEAN CORPUSCULAR HEMOGLOBIN 29.6 pg (27.0-31.0); MEAN CORPUSCULAR HGB CONC 34.2 g/dL (33.0-37.0); MEAN PLATELET VOLUME 9.6 fL (7.2-11.7); MONO # 0.8 K/uL (0.0-0.8); MONO % 9.9 % (0.0-10.0); NEUT # 6.6 K/uL (1.8-7.0); NEUT % 79.1 % (50.0-75.0); NRBC % 0.1 % (0.0-2.0); RBC 4.69 Mil/uL (4.40-5.90); RED CELL DISTRIBUTION WIDTH 16.1 % (11.5-14.5); WHITE BLOOD COUNT 8.3 K/uL (4.8-10.8)
[2018-03-11 09:54] LABS: SQUAMOUS EPITHIAL 2 /hpf (0-5); URINE BACTERIA RARE (<OCC); URINE BILIRUBIN NEGATIVE (NEGATIVE); URINE BLOOD 1+ (NEGATIVE); URINE CLARITY Hazy (Clear); URINE COLOR Amber (YELLOW); URINE GLUCOSE (UA) NORMAL (Normal); URINE LEUKOCYTE ESTERASE TRACE Leu/uL (Negative); URINE PROTEIN 2+ mg/dL (NEGATIVE); URINE UROBILINOGEN NORMAL mg/dL (0.2-1.0); WBC CLUMPS OCC /hpf
[2018-03-11 09:55] LABS: HEMOGLOBIN 13.9 g/dL (12.0-18.0)
[2018-03-11 09:56] LABS: MEAN CELL VOLUME 86.5 fL (80.0-94.0)
[2018-03-11 09:57] LABS: ALB/GLOB RATIO 1.2 (1.0-2.1); ALBUMIN 3.8 g/dL (3.5-5.0); CALCIUM 8.9 mg/dl (8.6-10.4)
[2018-03-11 10:01] LABS: INR 1.3; PROTHROMBIN TIME 14.3 SECONDS (9.7-12.2)
--- NOTE | 2018-03-11 10:11 | CT ---
Date of service: 03/11/2018 PROCEDURE: CT HEAD WITHOUT CONTRAST. HISTORY: TRAUMA COMPARISON: None available. TECHNIQUE: Axial computed tomography images were obtained through the head/brain without intravenous contrast. Radiation dose: Total exam DLP = 831.14 mGy-cm. This CT exam was performed using one or more of the following dose reduction techniques: Automated exposure control, adjustment of the mA and/or kV according to patient size, and/or use of iterative reconstruction technique. FINDINGS: HEMORRHAGE: No intracranial hemorrhage. BRAIN: A punctate granuloma is appreciated at a superior right frontal gyrus. Minimal diffuse cerebral atrophy is appreciated as well as trace chronic microangiopathy which are age-appropriate. No mass effect. No cortical edema. Posterior fossa contents appear diffusely unremarkable including the brainstem. VENTRICLES: Unremarkable. No hydrocephalus. CALVARIUM: No destructive bony lesion or displaced fracture identified including through the skullbase. PARANASAL SINUSES: Unremarkable as visualized. No significant inflammatory changes. MASTOID AIR CELLS: Unremarkable as visualized. No inflammatory changes. OTHER FINDINGS: None. IMPRESSION: Limited age-related neuro degenerative findings are identified. No definite acute intracranial findings including fracture.
--- NOTE | 2018-03-11 11:10 | RAD ---
Date of service: 03/11/2018 HISTORY: Sepsis Patient COMPARISON: Prior chest x-rays call. OB non portal it'll views. The most recent being in 12/30/2016 study FINDINGS: LUNGS: No consolidation appreciated. PLEURA: No significant pleural effusion identified, no pneumothorax apparent. CARDIOVASCULAR: Mild cardiomegaly-similar. There is rounded margination to the right hilum not appreciated such on prior studies this could be technical current study being semi-erect portable others being frontal nonportable studies. If needed CT chest should clarify OSSEOUS STRUCTURES: Bilateral shoulder arthrosis VISUALIZED UPPER ABDOMEN: Normal. OTHER FINDINGS: None. IMPRESSION: Interval appearance to the right hilum unclear, if any, significance. Consider PA chest x-ray to compare for stability with other prior PA frontal views. Another option would be noncontrast CT chest imaging to resolve
--- NOTE | 2018-03-11 13:17 | CP.PCM.HP ---
<Crystal Frausto - Last Filed: 03/11/18 20:45> History of Present Illness - History of Present Illness History of Present Illness: 77 year old male W/ PMHx of PE(04/20), hydronephrosis(04/21), HTN, presents to ED w/ complaints of headache, dizziness and diarrhea x5 days, and is s/p fall 2/2 loss of balance 3 days ago. Pt had recently been traveling to [facility] and only returned to [place] 03/10. Pt admits to 3-6 episodes of non bloody , watery diarrhea over the past 5 days, not associated w/ food. Pt reports he has been trying to stay hydrated and eat, but early satiety prevents him from too much intake. Pt reports he has never had this presentation before. He denies chest pain, SOB, nausea, vomiting. PMD: DR. Vizcarra PMHx: PE (04/21), renal cysts, hydronephrosis(04/21), gastritis, HTN, BPH, urinary retention 2/2 BPH, hepatic cavernous hemangioma PSHx: colonoscopy/endoscopy 2015 All: NKA Fam Hx: Denies family hx of heart dz, cancers, HTN, DM Soc Hx: Denies alcohol/tobacco/drug use Present on Admission - Present on Admission Any Indicators Present on Admission: Yes History of DVT/PE: Yes - Notes: Notes:: PE 2015, sent home on pradaxa Review of Systems - Constitutional Constitutional: Anorexia, Headache, Malaise - EENT Eyes: absent: Change in Vision Nose/Mouth/Throat: absent: Epistaxis, Nasal Congestion - Cardiovascular Cardiovascular: Lightheadedness, Syncope. absent: Chest Pain, Diaphoresis, Dyspnea, Edema, Palpitations - Respiratory Respiratory: absent: Cough, Dyspnea, Chest Congestion - Gastrointestinal Gastrointestinal: Diarrhea (multiple watery episodes), Early Satiety. absent: Abdominal Pain, Bloating, Nausea, Vomiting - Genitourinary Genitourinary: absent: Difficulty Urinating, Dysuria, Hematuria - Neurological Neurological: Dizziness, Lack of Coordination (syncope 2/2 isolated episode ). absent: Confusion, Numbness Past Patient History - Infectious Disease Hx of Infectious Diseases: None - Past Medical History & Family History Past Medical History?: Yes - Past Social History Smoking Status: Never Smoked Alcohol: None Drugs: Denies - CARDIAC Hx Hypertension: Yes - PULMONARY Hx Pulmonary Embolism: Yes (sent home on pradaxa) - NEUROLOGICAL Hx Neurological Disorder: No - HEENT Hx HEENT Problems: Yes Hx Cataracts: Yes - RENAL Hx Chronic Kidney Disease: No Other/Comment: hx of renal cysts and hydronephrosis - ENDOCRINE/METABOLIC Hx Endocrine Disorders: No - HEMATOLOGICAL/ONCOLOGICAL Hx Anemia: Yes - INTEGUMENTARY Hx Dermatological Problems: No - MUSCULOSKELETAL/RHEUMATOLOGICAL Hx Back Pain: Yes - GASTROINTESTINAL Hx Diverticulitis: Yes (diverticulosis by exam 2015) Hx Gastritis: Yes (H pylori + 2016) - GENITOURINARY/GYNECOLOGICAL Hx Genitourinary Disorders: No - PSYCHIATRIC Hx Substance Use: No - SURGICAL HISTORY Hx Surgeries: No - ANESTHESIA Hx Anesthesia: Yes Hx Anesthesia Reactions: No Hx Malignant Hyperthermia: No Meds Allergies/Adverse Reactions: Allergies Allergy/AdvReac Type Severity Reaction Status Date / Time No Known Allergies Allergy Verified 03/11/18 08:24 Physical Exam - Constitutional Appears: Well, Non-toxic, No Acute Distress - Head Exam Head Exam: ATRAUMATIC, NORMAL INSPECTION, NORMOCEPHALIC - Eye Exam Eye Exam: Conjunctival injection, EOMI, Normal appearance - ENT Exam ENT Exam: Mucous Membranes Moist, Normal Exam - Neck Exam Neck exam: Positive for: Normal Inspection. Negative for: Lymphadenopathy, Tenderness - Respiratory Exam Respiratory Exam: Clear to Auscultation Bilateral, NORMAL BREATHING PATTERN. absent: Accessory Muscle Use, Rhonchi, Wheezes - Cardiovascular Exam Cardiovascular Exam: REGULAR RHYTHM, +S1, +S2. absent: Systolic Murmur - GI/Abdominal Exam GI & Abdominal Exam: Distended, Normal Bowel Sounds, Soft. absent: Guarding, Tenderness - Extremities Exam Extremities exam: Positive for: normal capillary refill, normal inspection, pedal pulses present. Negative for: calf tenderness, joint swelling, pedal edema - Back Exam Back exam: NORMAL INSPECTION. absent: CVA tenderness (L), CVA tenderness (R) - Neurological Exam Neurological exam: Alert, Oriented x3 - Psychiatric Exam Psychiatric exam: Normal Affect - Skin Skin Exam: Intact, Normal Color, Warm Results - Vital Signs Recent Vital Signs: Last Vital Signs Temp 100 F H 03/11/18 09:34 Pulse 103 H 03/11/18 08:24 Resp 18 03/11/18 08:24 BP 103/61 03/11/18 08:24 Pulse Ox 95 03/11/18 11:48 - Labs Result Diagrams: 03/11/18 09:37 03/11/18 09:37 Labs: Laboratory Results - last 24 hr 03/11/18 03/11/18 03/11/18 09:33 09:37 09:37 WBC 8.3 RBC 4.69 Hgb 13.9 D Hct 40.6 MCV 86.5 D MCH 29.6 MCHC 34.2 RDW 16.1 H Plt Count 202 D MPV 9.6 Neut % (Auto) 79.1 H Lymph % (Auto) 10.6 L Marshall % (Auto) 9.9 Eos % (Auto) 0.2 Baso % (Auto) 0.2 Neut # (Auto) 6.6 Lymph # (Auto) 0.9 L Marshall # (Auto) 0.8 Eos # (Auto) 0.0 Baso # (Auto) 0.0 PT 14.3 H INR 1.3 APTT 28 pO2 30 VBG pH 7.35 VBG pCO2 37 L VBG HCO3 20.1 VBG Total CO2 21.5 L VBG O2 Sat (Calc) 59.5 VBG Base Excess -4.7 L VBG Potassium 4.1 Sodium 132.0 Chloride 101.0 Glucose 130 H Lactate 1.3 Potassium Carbon Dioxide Anion Gap BUN Creatinine Est GFR ( Amer) Est GFR (Non-Af Amer) Random Glucose Calcium Phosphorus Magnesium Total Bilirubin AST ALT Alkaline Phosphatase Total Protein Albumin Globulin Albumin/Globulin Ratio Venous Blood Potassium 4.1 Urine Color Urine Clarity Urine pH Ur Specific [place] Urine Protein Urine Glucose (UA) Urine Ketones Urine Blood Urine Nitrate Urine Bilirubin Urine Urobilinogen Ur Leukocyte Esterase Urine WBC (Auto) Urine RBC (Auto) Urine WBC Clumps (Auto) Ur Squamous Epith Cells Urine Bacteria Hyaline Casts 03/11/18 03/11/18 09:37 09:41 WBC RBC Hgb Hct MCV MCH MCHC RDW Plt Count MPV Neut % (Auto) Lymph % (Auto) Marshall % (Auto) Eos % (Auto) Baso % (Auto) Neut # (Auto) Lymph # (Auto) Marshall # (Auto) Eos # (Auto) Baso # (Auto) PT INR APTT pO2 VBG pH VBG pCO2 VBG HCO3 VBG Total CO2 VBG O2 Sat (Calc) VBG Base Excess VBG Potassium Sodium 135 Chloride 98 Glucose Lactate Potassium 3.6 Carbon Dioxide 18 L Anion Gap 22 H BUN 69 H Creatinine 6.4 H Est GFR ( Amer) 10 Est GFR (Non-Af Amer) 9 Random Glucose 134 H Calcium 8.9 Phosphorus 3.3 Magnesium 1.9 Total Bilirubin 0.7 AST 14 L D ALT 36 Alkaline Phosphatase 90 Total Protein 7.0 Albumin 3.8 Globulin 3.2 Albumin/Globulin Ratio 1.2 Venous Blood Potassium Urine Color Corina Urine Clarity Hazy Urine pH 5.0 Ur Specific [place] 1.016 Urine Protein 2+ H Urine Glucose (UA) Normal Urine Ketones Negative Urine Blood 1+ H Urine Nitrate Negative Urine Bilirubin Negative Urine Urobilinogen Normal Ur Leukocyte Esterase Trace Urine WBC (Auto) 20 H Urine RBC (Auto) 3 Urine WBC Clumps (Auto) Occ H Ur Squamous Epith Cells 2 Urine Bacteria Rare Hyaline Casts 3-5 H Assessment & Plan - Assessment and Plan (Free Text) Assessment: 77 year old male w/ PMHx of PE, HTN, gastritis, BPH with associated urinary retention, liver cavernous hemangioma admitted w diarrhea, syncopal event w/ injury to head and Acute renal insufficiency 1. s/p syncope -head ct negative for any acute pathology -NS @100/hr -PT eval and treat -monitor for volume depletion, strict ins/outs -f/u orthostatics Acute renal insufficiency -BUN/Cr 69/6.4 -abd x-ray-no evidence of nephrolithiasis -abd US-left sided hydronephrosis and multiple renal cysts -renal nuclear scan w/ lasix pending renal function improvement tmrw Diarrhea -f/u stool ova and paroasite, may be likely given pt's recent travel -f/u stool giardia and entamaeba given same -f/u stool cx -f/u blood/urinx cxs -rocephin 1g qd -f/u abd/pelvic high resolution CT BPH -PSA -flomax 5mg -tamsulosin .4mg -bladder scan qshift -strict ins/outs Ppx -protonix 40mg -heparin 5000 - Date & Time Date: 03/11/18 Time: 20:17 Decision To Admit - Pt Status Changed To: Hospital Disposition Of: Inpatient - Admit Certification Admit to Inpatient:: After my assessment, the patient will require hospitalization for at least two midnights. This is because of the severity of symptoms shown, intensity of services needed, and/or the medical risk in this patient being treated as an outpatient. - InPatient: Physician Admission Certification:: admission to tele - . Bed Request Type: Telemetry <Guadalupe Perez V - Last Filed: 03/14/18 13:11> Results - Vital Signs Recent Vital Signs: Last Vital Signs Temp 97.5 F L 03/14/18 07:00 Pulse 89 03/14/18 07:00 Resp 20 03/14/18 07:00 BP 133/85 03/14/18 11:00 Pulse Ox 95 03/14/18 07:00 - Labs Result Diagrams: 03/14/18 08:37 03/14/18 08:37 Labs: Laboratory Results - last 24 hr 03/14/18 03/14/18 08:37 08:37 WBC 8.8 RBC 4.39 L Hgb 13.1 Hct 38.0 MCV 86.8 MCH 30.0 MCHC 34.6 RDW 15.8 H Plt Count 260 MPV 9.2 Neut % (Auto) 77.7 H Lymph % (Auto) 10.4 L Marshall % (Auto) 8.6 Eos % (Auto) 3.2 Baso % (Auto) 0.1 Neut # (Auto) 6.8 Lymph # (Auto) 0.9 L Marshall # (Auto) 0.8 Eos # (Auto) 0.3 Baso # (Auto) 0.0 Sodium 142 Potassium 3.5 L Chloride 107 Carbon Dioxide 25 Anion Gap 14 BUN 21 H Creatinine 1.3 Est GFR ( Amer) > 60 Est GFR (Non-Af Amer) 54 Random Glucose 145 H Calcium 8.7 Phosphorus 2.5 Magnesium 1.7 Total Bilirubin 0.7 AST 39 ALT 46 Alkaline Phosphatase 87 Total Protein 6.5 Albumin 3.4 L Globulin 3.1 Albumin/Globulin Ratio 1.1 Attending/Attestation - Attestation I have personally seen and examined this patient.: Yes I have fully participated in the care of the patient.: Yes I have reviewed all pertinent clinical information: Yes
[2018-03-11] MEDS: Sodium Chloride 0.9% 1,000 ML IV SCH (14:44)
--- NOTE | 2018-03-11 15:23 | CARD ---
APPROVED REPORT Date of service: 03/11/2018 EKG Measurement Heart [id number] CT 136P18 [id number] <Conclusion> Sinus tachycardia with Ventricular trigeminy Otherwise normal ECG
--- NOTE | 2018-03-11 16:41 | US ---
Date of service: 03/11/2018 PROCEDURE: Ultrasound of the Kidneys HISTORY: r/o hydronephrosis/obstruction COMPARISON: CT abdomen 05/08/2017 and limited abdomen of the right kidney 05/08/2017.. TECHNIQUE: Sonogram of the kidneys. FINDINGS: RIGHT KIDNEY: Measures: 9.9 x 4.0 x 4.8 cm. Right renal cortical echogenicity is possibly minimally increased. No definite change with the prior ultrasound appearance from 05/08/2017 No stone, solid mass lesion or hydronephrosis visualized. LEFT KIDNEY: Measures: 12.1 x 5.6 x 7.4 cm. Normal in size, contour and echogenicity. For the delayed contrast enhanced CT study the foci throughout the left intrarenal pelvis in corticomedullary junction are believe most compatible with left hydronephrosis any a components concomitant parapelvic cysts are not excluded on this exam. This particular prominence of the left anterior upper pole anechoic focus is also noted on the prior study-no dependent imaging is seen to see to confirm that this is communicating with the left hydro nephrotic segment like a disproportionate asymmetrical extra renal pelviectasis with hydronephrosis or if this is a concomitant parapelvic cyst. This focus in the left kidney that is asymmetrically prominent anechoic is approximately 3.8 cm. OTHER FINDINGS: None. IMPRESSION: Left hydronephrosis in this information primarily gleaned from the delayed contrast enhanced study CT study 05/08/2017 -the ultrasound depiction of left hydronephrosis in this fashion with multiple parapelvic cysts an overlap. There is 1 asymmetrically prominent anechoic focus indeterminate in its etiology either representing a parapelvic cyst contiguous with the left hydro nephrotic collecting system or a proportionate extra renal pelviectasis contiguous with the dependent contrast laden hydronephrotic calices. No supine CT abdominal images for clarification are available.
--- NOTE | 2018-03-11 18:10 | RAD ---
Date of service: 03/11/2018 HISTORY: r/o nephrolithiasis COMPARISON: No prior. FINDINGS: BOWEL: Normal. No obstruction. No free air. BONES: Normal. OTHER FINDINGS: None. IMPRESSION: No significant or acute findings to account for/ related to the clinical presentation.
[2018-03-11] MEDS: Latanoprost 2.5 ml Opht Soln OU SCH (22:31)
[2018-03-11 23:37] LABS: CREATININE, RANDOM URINE 177.3 mg/dL
[2018-03-12 00:20] VITALS: RESP 20
[2018-03-12] MEDS: Sodium Chloride 0.9% 1,000 ML IV SCH ×4 (03:35→22:08)
--- NOTE | 2018-03-12 06:44 | CON ---
Copied To: Wily Meyers MD Attending MD: Wily Meyers MD DATE: 03/11/2018 [facility] NEPHROLOGY CONSULTATION HISTORY OF PRESENT ILLNESS: The patient is a 77-year-old male with past medical history of hypertension, status post PE, left kidney, hydronephrosis, BPH, peptic ulcer disease, presented to ED with dizziness and persistent diarrhea since previous five days. Nephrology being consulted for acute renal failure. The patient reports sudden onset of diarrhea five days before presentation, occurring approximately five times per day without any associated vomiting; reports decreased p.o. intake during this period; also with dizziness on arising to standing position with one episode of fall; denies any sick contact; the patient does report increased urination and dysuria lately. The patient had been taking his blood pressure meds per routine (losartan, hydrochlorothiazide); he also reports taking pain medication, but cannot remember the name of it (having pain in bilateral flank areas). PAST MEDICAL HISTORY: As above. SOCIAL HISTORY: Previous smoker. FAMILY HISTORY: Denies. REVIEW OF SYSTEMS: CONSTITUTIONAL: No anorexia. HEENT: Recently decreased vision. No difficulty swallowing. RESPIRATORY: Denies any dyspnea or cough. CARDIOVASCULAR: No chest pain, palpitations, or leg swelling. GASTROINTESTINAL: As per HPI. GENITOURINARY: As per HPI. MUSCULOSKELETAL: Bilateral flank pain. EXTREMITIES: No lower leg edema. SKIN: Reports some pruritus. NEUROLOGIC: Loss of balance occurring recently. PSYCHIATRIC: Denies depression or anxiety. PHYSICAL EXAMINATION: VITAL SIGNS: Blood pressure this afternoon 98/61, heart rate 86, respirations 18, temperature 98, T-max 100, O2 sat 98% on room air. GENERAL: No distress. Conversing coherently in full sentences. HEENT: Moist mucous membranes. Nonicteric. No cervical lymphadenopathy. RESPIRATORY: Lungs clear to auscultation bilaterally. No rales. No rhonchi. No wheezes. CARDIOVASCULAR: Heart sounds S1, S2 normal. No murmurs, gallops, or rubs. GASTROINTESTINAL: Abdomen, soft, nontender, nondistended. GENITOURINARY: No bladder distention. No suprapubic tenderness. EXTREMITIES: No lower leg edema. SKIN: Warm. No cyanosis. No ulcers of the feet. NEUROLOGIC: Sensation of feet grossly intact. No resting tremor. PSYCHIATRIC: Normal mood. Normal affect. LABORATORY DATA: CBC: WBC 8.3, hemoglobin 13.9, hematocrit 40.6, platelets 202. Chemistry panel: Sodium 135, potassium 3.6, chloride 98, bicarb 18, BUN 69, creatinine 6.4 (increased from 0.9 in 05/2017), glucose 134, calcium 8.9, phosphorus 3.3, magnesium 1.9. AST 14, ALT 36, albumin 3.8. Urine studies, UA 2+ protein, 1+ blood, 20 wbc's, 3 rbc's per high power field, rare bacteria. Renal ultrasound directly visualized, no hydronephrosis on right, left kidney with hydronephrosis (chronic). Bladder ultrasound, no significant postvoid residual volume, enlarged prostate gland. ASSESSMENT AND PLAN: 1. Acute renal failure, has history that would be consistent with prerenal azotemia with exacerbation due to loss of renal autoregulation from being on angiotensin-converting enzyme inhibitor/angiotensin-receptor mary; hydronephrosis unilaterally, may be somewhat contributory but does not explain acute findings. UA showing hematuria and pyuria. This is concerning for a process other than prerenal azotemia (AIN in differential); possible progression to acute tubular necrosis. -Obtaining random urine for protein microalbumin and creatinine. Insert Woods for accurate I's and O's. -We will check urine microscopy to look for an active sediment to guide us regarding need for renal biopsy. -Avoid nephrotoxic agents. No indication for renal replacement therapy at this time. 2. Metabolic acidosis secondary to renal failure with increased anion gap, lactate is normal. No need for bicarb replacement as pH is relatively compensated. 3. Left hydronephrosis, chronic, with etiology unclear. CAT scan report mentioning possible UPJ obstruction. Once the patient is volume replete, we will obtain renal Lasix scan to better assess for unilateral obstruction. 4. Hypertension. Blood pressure in the lower end of normal. I agree withholding antihypertensive agents. Continue intravenous fluids as above. Thank you for this referral. We will be following up closely. Wily Meyers MD SHARITA
--- NOTE | 2018-03-12 07:09 | CP.PCM.PN ---
<Celi Knox - Last Filed: 03/12/18 12:46> Subjective - Date & Time of Evaluation Date of Evaluation: 03/12/18 Time of Evaluation: 08:00 - Subjective Subjective: Nephology Progress Note for Patricia Mensah PGY3 Patient seen and examined at bedside. There were no acute overnight events as per nursing staff. Patient is complaining of LLQ abdominal pain that radiates to his back. He also is complaining of intermitted watery stools. He denies chest pain, shortness of breath, fever/chills, nausea/vomiting, numbness/ tingling. Objective - Vital Signs/Intake and Output Vital Signs (last 24 hours): Temp Pulse Resp BP Pulse Ox 98 F 90 20 122/77 96 03/12/18 04:25 03/12/18 04:25 03/12/18 04:25 03/12/18 04:25 03/12/18 04:25 Intake and Output: 03/12/18 03/12/18 06:59 18:59 Intake Total 600 Output Total 1025 Balance -425 - Medications Medications: Current Medications Finasteride (Proscar) 5 mg PO DAILY [facility] Heparin Sodium (Porcine) (Heparin) 5,000 units SC Q8 [facility] Last Admin: 03/12/18 05:59 Dose: 5,000 units Sodium Chloride (Sodium Chloride 0.9%) 1,000 mls @ 75 mls/hr IV .[id number] [facility] Last Admin: 03/12/18 06:02 Dose: 75 mls/hr Ceftriaxone Sodium 1 gm/ (Sodium Chloride) 100 mls @ 100 mls/hr IVPB DAILY [facility] PRN Reason: Protocol Latanoprost (Xalatan Opht) 0.05 ml OU HS [facility] Last Admin: 03/11/18 22:31 Dose: 0.05 ml Pantoprazole Sodium (Protonix Inj) 40 mg IVP DAILY [facility] Last Admin: 03/11/18 14:44 Dose: 40 mg Pneumococcal Polyvalent Vaccine (Pneumovax 23 Vaccine) 0.5 ml IM .ONCE ONE Stop: 03/13/18 10:01 Tamsulosin HCl (Flomax) 0.4 mg PO DAILY [facility] - Labs Labs: 03/11/18 09:37 03/11/18 09:37 PT 14.3 SECONDS (9.7-12.2) H 03/11/18 09:37 INR 1.3 03/11/18 09:37 APTT 28 SECONDS (21-34) 03/11/18 09:37 - Constitutional Appears: No Acute Distress - Head Exam Head Exam: ATRAUMATIC, NORMAL INSPECTION, NORMOCEPHALIC - Eye Exam Eye Exam: Normal appearance, PERRL Pupil Exam: NORMAL ACCOMODATION - ENT Exam ENT Exam: Mucous Membranes Dry - Respiratory Exam Respiratory Exam: Clear to Ausculation Bilateral, NORMAL BREATHING PATTERN. absent: Rales, Rhonchi, Wheezes - Cardiovascular Exam Cardiovascular Exam: +S1, +S2. absent: Gallop, Rubs, Murmur - GI/Abdominal Exam GI & Abdominal Exam: Soft, Tenderness (LLQ), Hyperactive Bowel Sounds. absent: Rigid, Mass, Rebound - Extremities Exam Extremities Exam: Normal Inspection. absent: Calf Tenderness, Pedal Edema - Neurological Exam Neurological Exam: Alert, Awake, CN II-XII Intact - Psychiatric Exam Psychiatric exam: Normal Affect, Normal Mood - Skin Skin Exam: Dry, Warm Assessment and Plan - Assessment and Plan (Free Text) Assessment: This is a 77yo males with past medical history of HTN, PE, peptic ulcer disease , BPH, L hydronephrosis who was admitted for 1. Acute renal failure (improving) - most likely secondary to pre-renal azotemia from dehydration from diarrhea and exacerbated by being on ACEI/ARB - FeNa: 0.9% which correlates with pre-renal etiology - No indication for renal replacement therapy at this time - Continue to monitor I&O - Avoid nephrotoxic agents - Continue IV fluids - Awaiting urine microalbumin and protein 2. Metabolic acidosis - stable - secondary to acute renal failure - no need for bicarb at this time - will continue to monitor 3. L Kidney Hydronephrosis - Renal US showed L chronic hydronephrosis - CT A/P showed no L hydronephosis and L parapelvic kidney cyst which is stable since 2017. R kidney within normal limits. No evidence of any stones. - Snell in place- patient has good urine output -- will dc snell today with voiding trial 4. BPH - Continue Proscar and Flomax 5. HTN - BP is on lower end - Continue to hold anti-hypertensive agents 6. Diarrhea- acute - patient still complaining of diarrhea - Continue hydration - recommend to advance diet as tolerated 7. Bacteremia - one blood culture positive for G- ambrocio - can be contamination- will await final cultures - on empiric antibiotics Case seen, discussed and reviewed with Dr. Meyers. Patricia Knox PGY3 <Wily Meyers - Last Filed: 03/13/18 08:12> Objective - Vital Signs/Intake and Output Vital Signs (last 24 hours): Temp Pulse Resp BP Pulse Ox 98.5 F 88 20 120/80 95 03/12/18 23:50 03/13/18 03:48 03/12/18 23:50 03/12/18 23:50 03/12/18 23:50 Intake and Output: 03/13/18 03/13/18 06:59 18:59 Intake Total 2000 Output Total 700 Balance 1300 - Medications Medications: Current Medications Finasteride (Proscar) 5 mg PO DAILY [facility] Last Admin: 03/12/18 09:28 Dose: 5 mg Heparin Sodium (Porcine) (Heparin) 5,000 units SC Q8 [facility] Last Admin: 03/13/18 05:49 Dose: 5,000 units Sodium Chloride (Sodium Chloride 0.9%) 1,000 mls @ 75 mls/hr IV .[id number] [facility] Last Admin: 03/12/18 22:08 Dose: 75 mls/hr Ceftriaxone Sodium 1 gm/ (Sodium Chloride) 100 mls @ 100 mls/hr IVPB DAILY [facility] PRN Reason: Protocol Last Admin: 03/12/18 09:27 Dose: 100 mls/hr Latanoprost (Xalatan Opht) 0.05 ml OU HS [facility] Last Admin: 03/12/18 22:07 Dose: 0.05 ml Pantoprazole Sodium (Protonix Inj) 40 mg IVP DAILY [facility] Last Admin: 03/11/18 14:44 Dose: 40 mg Pneumococcal Polyvalent Vaccine (Pneumovax 23 Vaccine) 0.5 ml IM .ONCE ONE Stop: 03/13/18 10:01 Saccharomyces Boulardii (Florastor) 250 mg PO BID [facility] Last Admin: 03/12/18 18:48 Dose: 250 mg Tamsulosin HCl (Flomax) 0.4 mg PO DAILY [facility] Last Admin: 03/12/18 09:28 Dose: 0.4 mg - Labs Labs: 03/12/18 08:34 08/08/18 08:34 PT 14.3 SECONDS (9.7-12.2) H 03/11/18 09:37 INR 1.3 03/11/18 09:37 APTT 28 SECONDS (21-34) 03/11/18 09:37 Attending/Attestation - Attestation I have personally seen and examined this patient.: Yes I have fully participated in the care of the patient.: Yes I have reviewed all pertinent clinical information, including history, physical exam and plan: Yes Notes (Text): Patient seen and examined; I agree with the resident's note as above with the following additions/edits: Patient admitted with persistent diarrhea and acute kidney injury; consistent with pre-renal etiology with renal function improving with IVF; relatively stable volume and electrolyte status; should continue IVF w/ NS at 75 cc/hr ( may have to increase if diarrhea continues); L chronic hydronephrosis needs further evaluation; will wait till renal function close to baseline before obtaining renal lasix scan to assess for obtstruction; New gram neg bacteremia, on ceftriaxone, no renal dose adjustment needed; Has enlarged prostate, giving voiding trial today;
--- NOTE | 2018-03-12 07:41 | CT ---
Date of service: 03/11/2018 PROCEDURE: CT Abdomen and Pelvis without intravenous contrast HISTORY: hydronephrosis COMPARISON: Abdomen radiographs 03/11/2018 prior abdomen and pelvis CT without contrast 05/08/2017. TECHNIQUE: Helical CT of the abdomen and pelvis was performed without oral or intravenous contrast as per referring physician request. Contrast dose: None Radiation dose: Total exam DLP = 600.36 mGy-cm. This CT exam was performed using one or more of the following dose reduction techniques: Automated exposure control, adjustment of the mA and/or kV according to patient size, and/or use of iterative reconstruction technique. FINDINGS: LOWER THORAX: Unremarkable. LIVER: There is a tiny lucency at the right lobe liver too small to characterize once again. Right lobe cavernous hemangioma is poorly seen in this unenhanced CT. GALLBLADDER AND BILE DUCTS: Unremarkable. PANCREAS: Unremarkable. No gross lesion or ductal dilatation. SPLEEN: Unremarkable. ADRENALS: Punctate calcification again seen related to the right adrenal gland with the left adrenal gland unremarkable. KIDNEYS AND URETERS: There is no radiodense urolithiasis, obstructive uropathy or perinephric reaction bilaterally. Kidneys appear stable in overall density throughout, including prominent left renal parapelvic cysts confirmed in prior abdomen and pelvis CT with and without contrast 05/08/2017. VASCULATURE: Unremarkable. No aortic aneurysm. BOWEL: Extensive sigmoid diverticulosis is appreciated without definite diverticulitis. The lack of oral and intravenous contrast limits evaluation of the small large bowel overall. Limited mural thickening at the ascending colon is difficult to completely exclude limited dilatation of distal small bowel loops with an questioned associated local mesenteric reaction potentially reflecting segmental enteritis. APPENDIX: Unremarkable. Normal appendix. PERITONEUM: Unremarkable. No free fluid. No free air. There is a tiny umbilical hernia containing only fat at this time once again. LYMPH NODES: Unremarkable. No enlarged lymph nodes. BLADDER: Urinary bladder is stable with the base up lifted by an enlarged prostate gland. REPRODUCTIVE: Enlarged prostate gland. BONES: No acute fracture. OTHER FINDINGS: None. IMPRESSION: 1. There is no radiodense urolithiasis, obstructive uropathy or perinephric reaction bilaterally. Kidneys appear homogeneous in overall density throughout. Urinary bladder appears unremarkable as well. 2. Enlarged prostate gland. 3. Potential limited segmental colitis ascending colon and possible distal small bowel enteritis as well. Lack of contrast agents limits evaluation of the gastrointestinal tract. 4. Stable prominent left renal parapelvic cyst. No obstructive uropathy left kidney. Discordant preliminary report from V remberto, 03/11/2018.
[2018-03-12 08:42] LABS: BASO % 0.1 % (0.0-2.0); EOS % 0.3 % (0.0-4.0); HEMOGLOBIN 13.5 g/dL (12.0-18.0); LYMPH # 0.9 K/uL (1.0-4.3); LYMPH % 8.9 % (20.0-40.0); MEAN CELL VOLUME 87.1 fL (80.0-94.0); MEAN CORPUSCULAR HGB CONC 34.4 g/dL (33.0-37.0); MEAN PLATELET VOLUME 9.4 fL (7.2-11.7); MONO # 1.3 K/uL (0.0-0.8); MONO % 12.5 % (0.0-10.0); NEUT # 8.1 K/uL (1.8-7.0); NEUT % 78.2 % (50.0-75.0); PLATELET COUNT 217 K/uL (130-400); RBC 4.49 Mil/uL (4.40-5.90); WHITE BLOOD COUNT 10.4 K/uL (4.8-10.8)
[2018-03-12 09:02] LABS: ALB/GLOB RATIO 1.1 (1.0-2.1); ALBUMIN 3.4 g/dL (3.5-5.0); CALCIUM 8.8 mg/dl (8.6-10.4)
[2018-03-12 09:41] LABS: ANISOCYTOSIS SLIGHT; BANDS 7 % (0-2); EOSINOPHIL 1 % (0-4); LYMPHOCYTE 11 % (20-40); MONOCYTE 11 % (0-10); NEUTROPHIL 70 % (50-75); PLATELET ESTIMATE NORMAL (NORMAL); TOTAL CELLS COUNTED 100
--- NOTE | 2018-03-12 11:22 | CP.PCM.PN ---
<MaldonadoAwildacatalina L - Last Filed: 03/12/18 17:04> Subjective - Date & Time of Evaluation Date of Evaluation: 03/12/18 Time of Evaluation: 10:00 - Subjective Subjective: Resident Progress Note for Hospitalist Service Patient examined at bedside. States that he is feeling much better today. His headache has completely resolved. However, his abdominal present is still present in his right and left lower quadrants. States that he had one episode of diarrhea today, nonbloody. Denies fever, chills, chest pain, shortness of breath, nausea, vomiting. Subjective obtained with assistance of master control technician Laura #[id number]. Objective - Vital Signs/Intake and Output Vital Signs (last 24 hours): Temp Pulse Resp BP Pulse Ox 98 F 92 H 20 122/76 97 03/12/18 07:00 03/12/18 07:00 03/12/18 07:00 03/12/18 07:00 03/12/18 07:00 Intake and Output: 03/12/18 03/12/18 06:59 18:59 Intake Total 600 Output Total 1025 Balance -425 - Medications Medications: Current Medications Finasteride (Proscar) 5 mg PO DAILY [facility] Last Admin: 03/12/18 09:28 Dose: 5 mg Heparin Sodium (Porcine) (Heparin) 5,000 units SC Q8 [facility]PL[facility] Last Admin: 03/12/18 05:59 Dose: 5,000 units Sodium Chloride (Sodium Chloride 0.9%) 1,000 mls @ 75 mls/hr IV .[id number] REPLACED [facility] Last Admin: 03/12/18 06:02 Dose: 75 mls/hr Ceftriaxone Sodium 1 gm/ (Sodium Chloride) 100 mls @ 100 mls/hr IVPB DAILY [facility] PRN Reason: Protocol Last Admin: 03/12/18 09:27 Dose: 100 mls/hr Latanoprost (Xalatan Opht) 0.05 ml OU HS [facility]PLACED [facility] Last Admin: 03/11/18 22:31 Dose: 0.05 ml Pantoprazole Sodium (Protonix Inj) 40 mg IVP DAILY [facility] Last Admin: 03/11/18 14:44 Dose: 40 mg Pneumococcal Polyvalent Vaccine (Pneumovax 23 Vaccine) 0.5 ml IM .ONCE ONE Stop: 03/13/18 10:01 Tamsulosin HCl (Flomax) 0.4 mg PO DAILY [facility] Last Admin: 03/12/18 09:28 Dose: 0.4 mg - Labs Labs: 03/12/18 08:34 03/12/18 08:34 PT 14.3 SECONDS (9.7-12.2) H 03/11/18 09:37 INR 1.3 03/11/18 09:37 APTT 28 SECONDS (21-34) 03/11/18 09:37 - Constitutional Appears: Non-toxic, No Acute Distress - Head Exam Head Exam: ATRAUMATIC, NORMOCEPHALIC - Eye Exam Eye Exam: EOMI, Normal appearance - ENT Exam ENT Exam: Normal Exam - Neck Exam Neck Exam: Normal Inspection - Respiratory Exam Respiratory Exam: Clear to Ausculation Bilateral, NORMAL BREATHING PATTERN - Cardiovascular Exam Cardiovascular Exam: REGULAR RHYTHM, +S1, +S2 - GI/Abdominal Exam GI & Abdominal Exam: Guarding, Soft, Tenderness, Hypoactive Bowel Sounds. absent: Distended, Firm, Mass, Organomegaly Additional comments: Tenderness in lower left and right quadrants - Extremities Exam Extremities Exam: Normal Capillary Refill, Normal Inspection. absent: Tenderness Additional comments: SCDs in place - Back Exam Back Exam: NORMAL INSPECTION - Neurological Exam Neurological Exam: Alert, Awake, CN II-XII Intact, Oriented x3 - Psychiatric Exam Psychiatric exam: Normal Affect, Normal Mood - Skin Skin Exam: Dry, Intact, Normal Color Assessment and Plan - Assessment and Plan (Free Text) Plan: Fall - Previous documentation states syncope. However patient states he did not have loss of consciousness. - Head CT negative for any acute pathology - IVF 75 ccs/hour - PT consulted - Followup orthostatic vital signs Acute renal insufficiency - BUN/Cr 69/6.4 - FENa <1% therefore likely due to dehydration 2/2 diarrhea - Abd x-ray shows no evidence of nephrolithiasis - Abd/pelvis CT shows no radiodense urolithiasis, obstructive uropathy or perinephric reaction bilaterally. Kidneys appear homogeneous in overall density throughout. Urinary bladder appears unremarkable. Enlarged prostate gland. - Bladder US shows left sided hydronephrosis and multiple renal cysts - Nephrology consulted. Appreciate recs. Diarrhea - Possibly related to patient's recent travel history - Abdomen/pelvis CT shows potential limited segmental colitis ascending colon and possibel distal small bowel enteritis as well. Lack of contrast agents limits evaluation of the GI tract. Stable prominent left renal parapelvic cyst. No obstructive uropathy left kidney. - Followup stool ova and parasite, giardia, entamoeba - Followup stool cultures, blood, urine cultures - Continue Rocephin 1 gram IVPB daily - IVF 75 ccs/hour - Liquid diet - ID consulted. Recs appreciated. BPH - PSA 1.42 - Continue home Proscar 5 mg PO daily - Continue home Flomax 0.4 mg PO daily - Bladder scan qshift - Strict ins/outs Glaucoma - Continue home Lantanoprost 0.05 ml OU HS PPX - Protonix 40 mg IVP daily - Heparin 5000 units SC Q8 - Florastor 250 mg PO BID - SCDs Gagandeep Maldonado PGY-1 <Juan Jose Veronica - Last Filed: 03/12/18 19:01> Objective - Vital Signs/Intake and Output Vital Signs (last 24 hours): Temp Pulse Resp BP Pulse Ox 100.4 F H 107 H 20 124/77 96 03/12/18 15:30 03/12/18 15:30 03/12/18 15:30 03/12/18 15:30 03/12/18 15:30 Intake and Output: 03/12/18 03/12/18 06:59 18:59 Intake Total 600 700 Output Total 1025 300 Balance -425 400 - Medications Medications: Current Medications Finasteride (Proscar) 5 mg PO DAILY [facility] Last Admin: 03/12/18 09:28 Dose: 5 mg Heparin Sodium (Porcine) (Heparin) 5,000 units SC Q8 [facility]PLAC[facility] Last Admin: 03/12/18 13:45 Dose: 5,000 units Sodium Chloride (Sodium Chloride 0.9%) 1,000 mls @ 75 mls/hr IV .[id number] REPLACED [facility] Last Admin: 03/12/18 06:02 Dose: 75 mls/hr Ceftriaxone Sodium 1 gm/ (Sodium Chloride) 100 mls @ 100 mls/hr IVPB DAILY [facility] PRN Reason: Protocol Last Admin: 03/12/18 09:27 Dose: 100 mls/hr Latanoprost (Xalatan Opht) 0.05 ml OU HS REPLACED [facility] Last Admin: 03/11/18 22:31 Dose: 0.05 ml Pantoprazole Sodium (Protonix Inj) 40 mg IVP DAILY [facility] Last Admin: 08/07/18 14:44 Dose: 40 mg Pneumococcal Polyvalent Vaccine (Pneumovax 23 Vaccine) 0.5 ml IM .ONCE ONE Stop: 03/13/18 10:01 Saccharomyces Boulardii (Florastor) 250 mg PO BID [facility] Tamsulosin HCl (Flomax) 0.4 mg PO DAILY [facility] Last Admin: 03/12/18 09:28 Dose: 0.4 mg - Labs Labs: 03/12/18 08:34 03/12/18 08:34 PT 14.3 SECONDS (9.7-12.2) H 03/11/18 09:37 INR 1.3 03/11/18 09:37 APTT 28 SECONDS (21-34) 03/11/18 09:37 Attending/Attestation - Attestation I have personally seen and examined this patient.: Yes I have fully participated in the care of the patient.: Yes I have reviewed all pertinent clinical information, including history, physical exam and plan: Yes Notes (Text): 03/12/18 18:48 Patient was seen and examined at 12:30 PM Exam, assessment and plan were gone over with the resident Also on ROS: 1 episode of watery of diarrhea earlier this morning Hungry but would like to start with liquids Slightly dizzy but this has improved since admission NO N/V Posterior headache NO new changes in vision Exam: General: AAOX3, NAD HEENT: NCA (NO open lesion/laceration on scalp), EOMI, PERRLA, NO cervical/ supraclavicular/submandibular lymphadenopathy, NO pharyngeal erythema/exudate, Nasal Turbinates are nonerythematous/nonedematous, Oral Mucosa is moist Cardio: NS1 and NS2, NO M/R/G Resp: CTA B/L, NO R/R/W GI: BSx4, Soft, Slightly tender to palpation in the RLQ, NO HSM, NO guarding/ rebound tenderness Ext: Pulses are strong and equal, Capillary Refill is 2 seconds, NO edema Neuro: CN II through XII are grossly intact Assessments: 1). Diarrhea: f/u stool studies/cultures 2). Acute Renal Failure: improved with IVF 3). Bacteremia: Gram Negative Rods found on Blood Culture 03/11/18 and patient started on Ceftriaxone. F/U sensitivities 4). Hx Urinary Retention: Flomax, Proscar 5). Hx HTN: holding Losartan and HCTZ considering the ARF 6). Hx PE: treated in May 2017. Will need to make sure that he followed up with Hematology 7). Hx Cavernous Hemangioma Liver: diagnosed May 2017 and evaluated by GI at the time with no further workup needed at the time 8). Hx Iron Deficiency: seen by Hematology in May 2017. Will need to make sure that he followed up with Hematology. HgB/Hct are stable 9). Left Kidney Hydronephrosis: Renal U/S shows left chronic hydronephrosis but the CT Abdomen/Pelvis did not and showed a stable left parapelvic kidney cyst stable since 2017 F/U Stool Studies Monitor renal function F/U sensitivities for gram negative bacteria found on blood culture Spoke with daughter Adriana [phone] and explained plan of care and diagnoses uJan Jose Veronica D.O. 03/12/18 18:56
--- NOTE | 2018-03-12 15:05 | VASCLAB ---
Date of service: 03/11/2018 PROCEDURE: Lower Extremity Venous Duplex Exam. HISTORY: r/o DVT PRIORS: None. TECHNIQUE: Bilateral common femoral, femoral, popliteal and posterior tibial, peroneal and great saphenous veins were evaluated. Flow was assessed with color Doppler, compressibility, assessment of phasic flow and augmentation response. Report prepared by Van Cotton, BS, RVT FINDINGS: RIGHT: 1. Common Femoral Vein: 1.1. Compressibility - Fully compressible: Thrombus - None : Flow - Phasic: Augmentation -Normal: Reflux - None. 2. Femoral Vein: 2.1. Compressibility - Fully compressible: Thrombus - None : Flow - Phasic: Augmentation -Normal: Reflux - None. 3. Popliteal Vein: 3.1. Compressibility - Fully compressible: Thrombus - None : Flow - Phasic: Augmentation -Normal: Reflux - None. 4. Posterior Tibial Vein: 4.1. Compressibility - Fully compressible: Thrombus - None: Flow - Phasic: Augmentation -Normal: Reflux - None. 5. Peroneal Vein: 5.1. Compressibility - Fully compressible: Thrombus - None: Flow - Phasic: Augmentation -Normal: Reflux - None. 6. Great Saphenous Vein: 6.1. Compressibility - Fully compressible: Thrombus - None: Flow - Phasic: Augmentation - Normal: Reflux - None. LEFT: 1. Common Femoral Vein: 1.1. Compressibility - Fully compressible: Thrombus - None: Flow - Phasic: Augmentation -Normal: Reflux - None. 2. Femoral Vein: 2.1. Compressibility - Fully compressible: Thrombus - None: Flow - Phasic: Augmentation -Normal: Reflux - None. 3. Popliteal Vein: 3.1. Compressibility - Fully compressible: Thrombus - None : Flow - Phasic: Augmentation -Normal: Reflux - None. 4. Posterior Tibial Vein: 4.1. Compressibility - Fully compressible: Thrombus - None: Flow - Phasic: Augmentation -Normal: Reflux - None. 5. Peroneal Vein: 5.1. Compressibility - Fully compressible: Thrombus - None: Flow - Phasic: Augmentation -Normal: Reflux - None. 6. Great Saphenous Vein: 6.1. Compressibility - Fully compressible: Thrombus - None: Flow - Phasic: Augmentation - Normal: Reflux - None. OTHER FINDINGS: Right: None significant. Left: None significant. IMPRESSION: Right: No evidence of deep or superficial vein thrombosis of the right lower extremity. Normal valve function noted of the right side. Left: No evidence of deep or superficial vein thrombosis of the left lower extremity. Normal valve function noted of the left side.
--- NOTE | 2018-03-12 15:59 | CP.PCM.CON ---
History of Present Illness - History of Present Illness History of Present Illness: 77 year old male presents to ED w/ complaints of headache, dizziness and diarrhea x5 days, and is s/p fall Pt had recently been traveling to [place] 03/10. Pt admits to 3-6 episodes of non bloody , watery diarrhea over the past 5 days, not associated w/ food. ID consulted for positive blood cultures PMHx: PE (04/21), renal cysts, hydronephrosis(04/21), gastritis, HTN, BPH, urinary retention 2/2 BPH, hepatic cavernous hemangioma PSHx: colonoscopy/endoscopy 2016 All: [facility] Fam Hx: Denies family hx of heart dz, cancers, HTN, DM Soc Hx: Denies alcohol/tobacco/drug use Present on Admission - Present on Admission Any Indicators Present on Admission: Yes History of DVT/PE: Yes - Notes: Notes:: PE 2016, sent home on pradaxa Review of Systems - Constitutional Constitutional: Anorexia, Headache, Malaise - EENT Eyes: absent: Change in Vision Nose/Mouth/Throat: absent: Epistaxis, Nasal Congestion - Cardiovascular Cardiovascular: Lightheadedness, Syncope. absent: Chest Pain, Diaphoresis, Dyspnea, Edema, Palpitations - Respiratory Respiratory: absent: Cough, Dyspnea, Chest Congestion - Gastrointestinal Gastrointestinal: Diarrhea (multiple watery episodes), Early Satiety. absent: Abdominal Pain, Bloating, Nausea, Vomiting - Genitourinary Genitourinary: absent: Difficulty Urinating, Dysuria, Hematuria - Neurological Neurological: Dizziness, Lack of Coordination (syncope 2/2 isolated episode ). absent: Confusion, Numbness Past Patient History - Infectious Disease Hx of Infectious Diseases: None - Past Medical History & Family History Past Medical History?: Yes - Past Social History Smoking Status: Never Smoked Alcohol: None Drugs: Denies - CARDIAC Hx Hypertension: Yes - PULMONARY Hx Pulmonary Embolism: Yes (sent home on pradaxa) - NEUROLOGICAL Hx Neurological Disorder: No - HEENT Hx HEENT Problems: Yes Hx Cataracts: Yes - RENAL Hx Chronic Kidney Disease: No Other/Comment: hx of renal cysts and hydronephrosis - ENDOCRINE/METABOLIC Hx Endocrine Disorders: No - HEMATOLOGICAL/ONCOLOGICAL Hx Anemia: Yes - INTEGUMENTARY Hx Dermatological Problems: No - MUSCULOSKELETAL/RHEUMATOLOGICAL Hx Back Pain: Yes - GASTROINTESTINAL Hx Diverticulitis: Yes (diverticulosis by exam 2016) Hx Gastritis: Yes (H pylori + 2016) - GENITOURINARY/GYNECOLOGICAL Hx Genitourinary Disorders: No - PSYCHIATRIC Hx Substance Use: No - SURGICAL HISTORY Hx Surgeries: No - ANESTHESIA Hx Anesthesia: Yes Hx Anesthesia Reactions: No Hx Malignant Hyperthermia: No Meds Allergies/Adverse Reactions: Allergies Allergy/AdvReac Type Severity Reaction Status Date / Time No Known Allergies Allergy Verified 03/11/18 08:24 - Medications Medications: Current Medications Finasteride (Proscar) 5 mg PO DAILY [facility] Last Admin: 03/12/18 09:28 Dose: 5 mg Heparin Sodium (Porcine) (Heparin) 5,000 units SC Q8 [facility] Last Admin: 03/12/18 13:45 Dose: 5,000 units Sodium Chloride (Sodium Chloride 0.9%) 1,000 mls @ 75 mls/hr IV .[id number] [facility] Last Admin: 03/12/18 06:02 Dose: 75 mls/hr Ceftriaxone Sodium 1 gm/ (Sodium Chloride) 100 mls @ 100 mls/hr IVPB DAILY [facility] PRN Reason: Protocol Last Admin: 03/12/18 09:27 Dose: 100 mls/hr Latanoprost (Xalatan Opht) 0.05 ml OU HS [facility] Last Admin: 03/11/18 22:31 Dose: 0.05 ml Pantoprazole Sodium (Protonix Inj) 40 mg IVP DAILY [facility] Last Admin: 03/11/18 14:44 Dose: 40 mg Pneumococcal Polyvalent Vaccine (Pneumovax 23 Vaccine) 0.5 ml IM .ONCE ONE Stop: 03/13/18 10:01 Saccharomyces Boulardii (Florastor) 250 mg PO BID [facility] Tamsulosin HCl (Flomax) 0.4 mg PO DAILY [facility] Last Admin: 03/12/18 09:28 Dose: 0.4 mg Physical Exam - Constitutional Appears: No Acute Distress, Chronically Ill - Head Exam Head Exam: ATRAUMATIC, NORMOCEPHALIC - Eye Exam Eye Exam: absent: Scleral icterus - ENT Exam ENT Exam: Mucous Membranes Dry, Normal Oropharynx - Neck Exam Neck exam: Negative for: Lymphadenopathy - Respiratory Exam Respiratory Exam: Decreased Breath Sounds, Clear to Auscultation Bilateral - Cardiovascular Exam Cardiovascular Exam: REGULAR RHYTHM, +S1, +S2 - GI/Abdominal Exam GI & Abdominal Exam: Diminished Bowel Sounds, Distended, Guarding, Soft, Tenderness. absent: Organomegaly, Rebound, Rigid - Rectal Exam Rectal Exam: Deferred - Exam Exam: NORMAL INSPECTION - Extremities Exam Extremities exam: Positive for: pedal pulses present. Negative for: calf tenderness, pedal edema, tenderness - Back Exam Back exam: absent: CVA tenderness (L), CVA tenderness (R), paraspinal tenderness - Neurological Exam Neurological exam: Alert, CN II-XII Intact, Oriented x3, Reflexes Normal - Psychiatric Exam Psychiatric exam: Normal Mood - Skin Skin Exam: Dry Results - Vital Signs Recent Vital Signs: Last Vital Signs Temp 98 F 03/12/18 07:00 Pulse 94 H 03/12/18 08:15 Resp 20 03/12/18 07:00 BP 122/76 03/12/18 07:00 Pulse Ox 97 03/12/18 07:00 - Labs Result Diagrams: 03/12/18 08:34 03/12/18 08:34 Labs: Laboratory Results - last 24 hr 03/11/18 03/12/18 03/12/18 23:01 08:34 08:34 WBC RBC Hgb Hct MCV MCH MCHC RDW Plt Count MPV Neut % (Auto) Lymph % (Auto) [place] % (Auto) Eos % (Auto) Baso % (Auto) Neut # (Auto) Lymph # (Auto) [place] # (Auto) Eos # (Auto) Baso # (Auto) Neutrophils % (Manual) Band Neutrophils % Lymphocytes % (Manual) Monocytes % (Manual) Eosinophils % (Manual) Platelet Estimate Anisocytosis (manual) Sodium Potassium Chloride Carbon Dioxide Anion Gap BUN Creatinine Est GFR ( Amer) Est GFR (Non-Af Amer) Random Glucose Hemoglobin A1c 6.5 Calcium Phosphorus Magnesium Total Bilirubin AST ALT Alkaline Phosphatase Total Protein Albumin Globulin Albumin/Globulin Ratio Prostate Specific Ag 1.42 Ur Random Creatinine 177.3 Ur Random Sodium 58 03/12/18 03/12/18 08:34 08:34 WBC 10.4 RBC 4.49 Hgb 13.5 Hct 39.1 MCV 87.1 MCH 30.0 MCHC 34.4 RDW 16.0 H Plt Count 217 MPV 9.4 Neut % (Auto) 78.2 H Lymph % (Auto) 8.9 L [place] % (Auto) 12.5 H Eos % (Auto) 0.3 Baso % (Auto) 0.1 Neut # (Auto) 8.1 H Lymph # (Auto) 0.9 L [place] # (Auto) 1.3 H Eos # (Auto) 0.0 Baso # (Auto) 0.0 Neutrophils % (Manual) 70 Band Neutrophils % 7 H Lymphocytes % (Manual) 11 L Monocytes % (Manual) 11 H Eosinophils % (Manual) 1 Platelet Estimate Normal Anisocytosis (manual) Slight Sodium 141 Potassium 4.0 Chloride 104 Carbon Dioxide 20 L Anion Gap 21 H BUN 61 H Creatinine 3.8 H Est GFR ( Amer) 19 Est GFR (Non-Af Amer) 16 Random Glucose 98 Hemoglobin A1c Calcium 8.8 Phosphorus 3.8 Magnesium 1.9 Total Bilirubin 0.7 AST 17 D ALT 23 Alkaline Phosphatase 97 Total Protein 6.6 Albumin 3.4 L Globulin 3.2 Albumin/Globulin Ratio 1.1 Prostate Specific Ag Ur Random Creatinine Ur Random Sodium Assessment & Plan (1) Bacteremia Status: Acute (2) Acute renal insufficiency Status: Acute (3) Diarrhea Status: Acute (4) Near syncope Status: Acute - Assessment and Plan (Free Text) Assessment: enteroinvasive diarrheal illness in a returning traveler from [place]/o salmonella, shigella, campylobacter, enteroinvasive e coli , yersinnia cont iv antibiotics, hydration
[2018-03-12] MEDS: Saccharomyces Boulardi 250 mg Cap PO SCH (18:48)
[2018-03-12] MEDS: Latanoprost 2.5 ml Opht Soln OU SCH (22:07)
--- NOTE | 2018-03-13 05:11 | CP.PCM.PN ---
Subjective - Date & Time of Evaluation Date of Evaluation: 03/13/18 Time of Evaluation: 07:02 - Subjective Subjective: Nephrology Progress Note for Patricia Mensah PGY3 Patient seen and examined at bedside. As per nursing staff, patient slept all night and had no episodes of diarrhea. Patient reports he has been urinating well and his abdominal pain has improved. He denies chest pain, shortness of breath, nausea/vomiting/diarrhea, fever/chills, numbness/tingling, dysuria/ hematuria. Objective - Vital Signs/Intake and Output Vital Signs (last 24 hours): Temp Pulse Resp BP Pulse Ox 98.5 F 88 20 120/80 95 03/12/18 23:50 03/13/18 03:48 03/12/18 23:50 03/12/18 23:50 03/12/18 23:50 Intake and Output: 03/12/18 03/13/18 18:59 06:59 Intake Total 700 1200 Output Total 300 200 Balance 400 1000 - Medications Medications: Current Medications Finasteride (Proscar) 5 mg PO DAILY [facility] Last Admin: 03/12/18 09:28 Dose: 5 mg Heparin Sodium (Porcine) (Heparin) 5,000 units SC Q8 [facility] Last Admin: 03/12/18 22:04 Dose: 5,000 units Sodium Chloride (Sodium Chloride 0.9%) 1,000 mls @ 75 mls/hr IV .[id number] [facility] Last Admin: 03/12/18 22:08 Dose: 75 mls/hr Ceftriaxone Sodium 1 gm/ (Sodium Chloride) 100 mls @ 100 mls/hr IVPB DAILY [facility] PRN Reason: Protocol Last Admin: 03/12/18 09:27 Dose: 100 mls/hr Latanoprost (Xalatan Opht) 0.05 ml OU HS [facility] Last Admin: 03/12/18 22:07 Dose: 0.05 ml Pantoprazole Sodium (Protonix Inj) 40 mg IVP DAILY [facility] Last Admin: 03/11/18 14:44 Dose: 40 mg Pneumococcal Polyvalent Vaccine (Pneumovax 23 Vaccine) 0.5 ml IM .ONCE ONE Stop: 03/13/18 10:01 Saccharomyces Boulardii (Florastor) 250 mg PO BID [facility] Last Admin: 03/12/18 18:48 Dose: 250 mg Tamsulosin HCl (Flomax) 0.4 mg PO DAILY [facility] Last Admin: 03/12/18 09:28 Dose: 0.4 mg - Labs Labs: 03/12/18 08:34 03/12/18 08:34 PT 14.3 SECONDS (9.7-12.2) H 03/11/18 09:37 INR 1.3 03/11/18 09:37 APTT 28 SECONDS (21-34) 03/11/18 09:37 - Constitutional Appears: No Acute Distress - Head Exam Head Exam: ATRAUMATIC, NORMAL INSPECTION, NORMOCEPHALIC - Eye Exam Eye Exam: Normal appearance, PERRL Pupil Exam: NORMAL ACCOMODATION - ENT Exam ENT Exam: Mucous Membranes Dry - Respiratory Exam Respiratory Exam: Clear to Ausculation Bilateral, NORMAL BREATHING PATTERN. absent: Rales, Rhonchi, Wheezes - Cardiovascular Exam Cardiovascular Exam: REGULAR RHYTHM, +S1, +S2. absent: Gallop, Rubs, Murmur - GI/Abdominal Exam GI & Abdominal Exam: Soft, Tenderness (LLQ mild ), Normal Bowel Sounds. absent : Rigid, Mass, Rebound - Extremities Exam Extremities Exam: Normal Inspection. absent: Calf Tenderness, Pedal Edema - Neurological Exam Neurological Exam: Alert, Awake, CN II-XII Intact, Oriented x3 - Psychiatric Exam Psychiatric exam: Normal Affect, Normal Mood - Skin Skin Exam: Dry, Warm Assessment and Plan - Assessment and Plan (Free Text) Assessment: This is a 77yo males with past medical history of HTN, PE, peptic ulcer disease , BPH, L hydronephrosis who was admitted for 1. Acute renal failure-improving - most likely secondary to pre-renal azotemia from dehydration from diarrhea and exacerbated by being on ACEI/ARB - FeNa: 0.9% correlates with pre-renal etiology - Cr: 1.9, Baseline ~1.0 - Continue NS@75 - Avoid nephrotoxic agents - No indication for renal replacement therapy at this time 2. Metabolic acidosis - improving - secondary to renal failure - no need for bicarb at this time - Continue to monitor 3. Hypokalemia - mild - most likely secondary to poor PO intake - will replace as needed - Continue to monitor 3. L Kidney Hydronephrosis - Renal US showed L chronic hydronephrosis - CT A/P showed no L hydronephosis and L parapelvic kidney cyst which is stable since 2017. R kidney within normal limits. No evidence of any stones. - Patient has good urine output without snell - Continue to monitor strict I& O - Will need outpatient follow up for chronic hydronephrosis - Will await Lasix renal scan once renal function is back to normal 4. BPH - Proscar and Flomax 5. HTN - Continue to hold anti-hypertensive agents (ACEI/ARB) 6. Diarrhea- improved - No episodes of diarrhea - Continue hydration - Patient is on Liquid diet 7. Bacteremia - one blood culture positive for G- ambrocio - can be contamination- will await final cultures - on empiric antibiotics Case seen, discussed and reviewed with Dr. Meyers. Patricia Knox PGY3
[2018-03-13] MEDS: Sodium Chloride 0.9% 1,000 ML IV SCH ×3 (06:15→19:35)
--- NOTE | 2018-03-13 07:27 | CP.PCM.PN ---
<Crystal Frausto - Last Filed: 03/13/18 17:44> Subjective - Date & Time of Evaluation Date of Evaluation: 03/13/18 Time of Evaluation: 07:30 - Subjective Subjective: Patient examined at bedside, no acute events overnight. Patient admits to 4 watery loose BM overnight, but none this morning. He reports feeling better when he eats. Patient denies abdominal pain, nausea, chest pain, SOB, dizziness. Objective - Vital Signs/Intake and Output Vital Signs (last 24 hours): Temp Pulse Resp BP Pulse Ox 98.5 F 88 20 120/80 95 03/12/18 23:50 03/13/18 03:48 03/12/18 23:50 03/12/18 23:50 03/12/18 23:50 Intake and Output: 03/13/18 03/13/18 06:59 18:59 Intake Total 2000 Output Total 200 Balance 1800 - Medications Medications: Current Medications Finasteride (Proscar) 5 mg PO DAILY [facility] Last Admin: 03/12/18 09:28 Dose: 5 mg Heparin Sodium (Porcine) (Heparin) 5,000 units SC Q8 [facility] Last Admin: 03/13/18 05:49 Dose: 5,000 units Sodium Chloride (Sodium Chloride 0.9%) 1,000 mls @ 75 mls/hr IV .[id number] [facility] Last Admin: 03/12/18 22:08 Dose: 75 mls/hr Ceftriaxone Sodium 1 gm/ (Sodium Chloride) 100 mls @ 100 mls/hr IVPB DAILY [facility] PRN Reason: Protocol Last Admin: 03/12/18 09:27 Dose: 100 mls/hr Latanoprost (Xalatan Opht) 0.05 ml OU HS [facility] Last Admin: 03/12/18 22:07 Dose: 0.05 ml Pantoprazole Sodium (Protonix Inj) 40 mg IVP DAILY [facility] Last Admin: 03/11/18 14:44 Dose: 40 mg Pneumococcal Polyvalent Vaccine (Pneumovax 23 Vaccine) 0.5 ml IM .ONCE ONE Stop: 03/13/18 10:01 Saccharomyces Boulardii (Florastor) 250 mg PO BID [facility] Last Admin: 03/12/18 18:48 Dose: 250 mg Tamsulosin HCl (Flomax) 0.4 mg PO DAILY [facility] Last Admin: 03/12/18 09:28 Dose: 0.4 mg - Labs Labs: 03/12/18 08:34 03/12/18 08:34 PT 14.3 SECONDS (9.7-12.2) H 03/11/18 09:37 INR 1.3 03/11/18 09:37 APTT 28 SECONDS (21-34) 03/11/18 09:37 - Constitutional Appears: Non-toxic, No Acute Distress - Head Exam Head Exam: ATRAUMATIC, NORMAL INSPECTION, NORMOCEPHALIC - Eye Exam Eye Exam: EOMI, Normal appearance - ENT Exam ENT Exam: Mucous Membranes Moist - Neck Exam Neck Exam: Normal Inspection - Respiratory Exam Respiratory Exam: Clear to Ausculation Bilateral, NORMAL BREATHING PATTERN. absent: Rhonchi, Wheezes - Cardiovascular Exam Cardiovascular Exam: REGULAR RHYTHM, +S1, +S2. absent: Murmur - GI/Abdominal Exam GI & Abdominal Exam: Distended, Soft, Normal Bowel Sounds. absent: Tenderness - Extremities Exam Extremities Exam: Normal Capillary Refill, Normal Inspection. absent: Calf Tenderness, Pedal Edema - Back Exam Back Exam: NORMAL INSPECTION - Neurological Exam Neurological Exam: Alert, Awake, Normal Gait, Oriented x3 - Psychiatric Exam Psychiatric exam: Normal Affect, Normal Mood - Skin Skin Exam: Intact, Normal Color, Warm Assessment and Plan - Assessment and Plan (Free Text) Assessment: 77 yo male admitted w/ dizziness 2/2 diarrhea x5 days Diarrhea -stool ova/parasite negative -f/u final reports -recommend f/u colonoscopy when resolved Bacteremia -blood cx 1/2, cx + gram - ambrocio, f/u on sensitivity -Ceftriaxone 1g -ID consult Dr. Price Acute renal failure -BUN/ Cr 69/6.4 on admission -improving--->40/1.9 -nephro consult Dr. Price Urinary retention 2/2 BPH -flomax .4mg -finasteride 5mg HTN -holding hypertensive meds -BP stable Hypokalemia-monitor and replete as needed Ppx -protonix 40mg -heparin 5000U Q8 <Juan Jose Veronica - Last Filed: 03/16/18 23:40> Objective - Vital Signs/Intake and Output Vital Signs (last 24 hours): Temp Pulse Resp BP Pulse Ox 98.6 F 66 20 145/85 97 03/16/18 15:00 03/16/18 17:30 03/16/18 15:00 03/16/18 15:00 03/16/18 15:00 - Medications Medications: Current Medications Finasteride (Proscar) 5 mg PO DAILY [facility] Last Admin: 03/16/18 10:05 Dose: 5 mg Heparin Sodium (Porcine) (Heparin) 5,000 units SC Q8 [facility] Last Admin: 03/16/18 22:15 Dose: 5,000 units Sodium Chloride (Sodium Chloride 0.9%) 1,000 mls @ 75 mls/hr IV .[id number] [facility] Last Admin: 03/16/18 22:15 Dose: 75 mls/hr Ceftriaxone Sodium 1 gm/ (Sodium Chloride) 100 mls @ 100 mls/hr IVPB DAILY [facility] PRN Reason: Protocol Last Admin: 03/16/18 11:22 Dose: 100 mls/hr Azithromycin 500 mg/ Sodium (Chloride) 250 mls @ 250 mls/hr IVPB DAILY [facility] PRN Reason: Protocol Last Admin: 03/16/18 12:48 Dose: 250 mls/hr Lactobacillus Acidophilus (Bacid Acidophilus) 1 cap PO BID [facility] Last Admin: 03/16/18 17:52 Dose: 1 cap Latanoprost (Xalatan Opht) 0.05 ml OU HS [facility] Last Admin: 03/16/18 22:16 Dose: 0.05 ml Metronidazole (Flagyl) 500 mg PO Q8 [facility] PRN Reason: Protocol Stop: 03/20/18 14:00 Last Admin: 03/16/18 22:14 Dose: 500 mg Pantoprazole Sodium (Protonix Inj) 40 mg IVP DAILY [facility] Last Admin: 03/11/18 14:44 Dose: 40 mg Tamsulosin HCl (Flomax) 0.4 mg PO DAILY [facility] Last Admin: 03/16/18 10:05 Dose: 0.4 mg - Labs Labs: 03/16/18 07:27 03/16/18 07:27 PT 14.3 SECONDS (9.7-12.2) H 03/11/18 09:37 INR 1.3 03/11/18 09:37 APTT 28 SECONDS (21-34) 03/11/18 09:37 Attending/Attestation - Attestation I have personally seen and examined this patient.: Yes I have fully participated in the care of the patient.: Yes I have reviewed all pertinent clinical information, including history, physical exam and plan: Yes Notes (Text): 03/16/18 23:39 This is a late entry Care of this patient was discussed in detail with Dr. Jett Veronica D.O.
[2018-03-13 08:36] LABS: BASO % 0.1 % (0.0-2.0); EOS # 0.2 K/uL (0.0-0.7); EOS % 2.2 % (0.0-4.0); HEMOGLOBIN 13.3 g/dL (12.0-18.0); LYMPH # 0.9 K/uL (1.0-4.3); LYMPH % 9.7 % (20.0-40.0); MEAN CELL VOLUME 86.9 fL (80.0-94.0); MEAN CORPUSCULAR HGB CONC 34.5 g/dL (33.0-37.0); MEAN PLATELET VOLUME 9.4 fL (7.2-11.7); MONO # 0.9 K/uL (0.0-0.8); MONO % 10.4 % (0.0-10.0); NEUT % 77.6 % (50.0-75.0); PLATELET COUNT 230 K/uL (130-400); RBC 4.44 Mil/uL (4.40-5.90); RED CELL DISTRIBUTION WIDTH 15.6 % (11.5-14.5)
[2018-03-13 09:23] LABS: EOSINOPHIL 2 % (0-4); LYMPHOCYTE 9 % (20-40); MONOCYTE 7 % (0-10); NEUTROPHIL 82 % (50-75); PLATELET ESTIMATE NORMAL (NORMAL); TOTAL CELLS COUNTED 100
[2018-03-13 09:37] LABS: ALB/GLOB RATIO 1.2 (1.0-2.1); ALBUMIN 3.6 g/dL (3.5-5.0); CALCIUM 8.6 mg/dl (8.6-10.4)
[2018-03-13] MEDS ORDERED: Potassium Chloride 20 mEq ER Tab PO ONE ×2 (09:43→12:58)
[2018-03-13] MEDS ORDERED: Pneumococcal 23-Valent Vaccine IM ONE (10:00)
[2018-03-13] MEDS: Saccharomyces Boulardi 250 mg Cap PO SCH ×2 (11:55→18:41)
--- NOTE | 2018-03-13 19:51 | CP.PCM.PN ---
Subjective - Date & Time of Evaluation Date of Evaluation: 03/13/18 Time of Evaluation: 08:00 - Subjective Subjective: Had 3 looose BM today denies fever less discomfort Objective - Vital Signs/Intake and Output Vital Signs (last 24 hours): Temp Pulse Resp BP Pulse Ox 98.5 F 86 20 117/71 98 03/13/18 15:07 03/13/18 15:07 03/13/18 15:07 03/13/18 15:07 03/13/18 15:07 Intake and Output: 03/13/18 03/14/18 18:59 06:59 Intake Total 1395 Output Total 280 Balance 1115 - Medications Medications: Current Medications Finasteride (Proscar) 5 mg PO DAILY [facility] Last Admin: 03/13/18 11:55 Dose: 5 mg Heparin Sodium (Porcine) (Heparin) 5,000 units SC Q8 [facility] Last Admin: 03/13/18 14:14 Dose: 5,000 units Sodium Chloride (Sodium Chloride 0.9%) 1,000 mls @ 75 mls/hr IV .[id number] [facility] Last Admin: 03/13/18 11:55 Dose: 75 mls/hr Ceftriaxone Sodium 1 gm/ (Sodium Chloride) 100 mls @ 100 mls/hr IVPB DAILY [facility] PRN Reason: Protocol Last Admin: 03/13/18 11:55 Dose: 100 mls/hr Latanoprost (Xalatan Opht) 0.05 ml OU HS [facility] Last Admin: 03/12/18 22:07 Dose: 0.05 ml Pantoprazole Sodium (Protonix Inj) 40 mg IVP DAILY [facility] Last Admin: 03/11/18 14:44 Dose: 40 mg Saccharomyces Boulardii (Florastor) 250 mg PO BID [facility] Last Admin: 03/13/18 18:41 Dose: 250 mg Tamsulosin HCl (Flomax) 0.4 mg PO DAILY [facility] Last Admin: 03/13/18 11:55 Dose: 0.4 mg - Labs Labs: 03/13/18 08:28 03/13/18 08:28 PT 14.3 SECONDS (9.7-12.2) H 03/11/18 09:37 INR 1.3 03/11/18 09:37 APTT 28 SECONDS (21-34) 03/11/18 09:37 - Constitutional Appears: Non-toxic, Chronically Ill - Head Exam Head Exam: NORMOCEPHALIC - Eye Exam Eye Exam: PERRL - ENT Exam ENT Exam: Mucous Membranes Dry - Neck Exam Neck Exam: absent: Lymphadenopathy - Respiratory Exam Respiratory Exam: Decreased Breath Sounds - Cardiovascular Exam Cardiovascular Exam: REGULAR RHYTHM - GI/Abdominal Exam GI & Abdominal Exam: Distended - Rectal Exam Rectal Exam: Deferred - Exam Exam: NORMAL INSPECTION - Extremities Exam Extremities Exam: absent: Pedal Edema - Back Exam Back Exam: absent: CVA tenderness (L), CVA tenderness (R) - Neurological Exam Neurological Exam: Alert, Awake - Psychiatric Exam Psychiatric exam: Normal Mood Assessment and Plan (1) Bacteremia Status: Acute (2) Acute renal insufficiency Status: Acute (3) Diarrhea Status: Acute (4) Near syncope Status: Acute
[2018-03-13] MEDS: Latanoprost 2.5 ml Opht Soln OU SCH (22:26)
--- NOTE | 2018-03-14 05:19 | CP.PCM.PN ---
Subjective - Date & Time of Evaluation Date of Evaluation: 03/14/18 Time of Evaluation: 07:00 - Subjective Subjective: Nephrology Progress Note for Patricia Mensah PGY3 Patient seen and examined at bedside. There were no acute overnight events as per nursing staff. Patient reports still having diarrhea. His abdominal pain has improved. He denies chest pain, shortness of breath, nausea/vomiting, fever/ chills, numbness/tingling, dysuria or hematuria. Patient states he is urinating a lot. Objective - Vital Signs/Intake and Output Vital Signs (last 24 hours): Temp Pulse Resp BP Pulse Ox 98.1 F 76 20 133/86 96 03/13/18 23:55 03/14/18 04:08 03/13/18 23:55 03/13/18 23:55 03/13/18 23:55 Intake and Output: 03/13/18 03/14/18 18:59 06:59 Intake Total 1395 1080 Output Total 280 400 Balance 1115 680 - Medications Medications: Current Medications Finasteride (Proscar) 5 mg PO DAILY [facility] Last Admin: 03/13/18 11:55 Dose: 5 mg Heparin Sodium (Porcine) (Heparin) 5,000 units SC Q8 [facility] Last Admin: 03/13/18 22:26 Dose: 5,000 units Sodium Chloride (Sodium Chloride 0.9%) 1,000 mls @ 75 mls/hr IV .[id number] [facility] Last Admin: 03/13/18 19:35 Dose: Not Given Ceftriaxone Sodium 1 gm/ (Sodium Chloride) 100 mls @ 100 mls/hr IVPB DAILY [facility] PRN Reason: Protocol Last Admin: 03/13/18 11:55 Dose: 100 mls/hr Latanoprost (Xalatan Opht) 0.05 ml OU HS [facility] Last Admin: 03/13/18 22:26 Dose: 0.05 ml Pantoprazole Sodium (Protonix Inj) 40 mg IVP DAILY [facility] Last Admin: 03/11/18 14:44 Dose: 40 mg Saccharomyces Boulardii (Florastor) 250 mg PO BID [facility] Last Admin: 03/13/18 18:41 Dose: 250 mg Tamsulosin HCl (Flomax) 0.4 mg PO DAILY [facility] Last Admin: 03/13/18 11:55 Dose: 0.4 mg - Labs Labs: 03/13/18 08:28 03/13/18 08:28 PT 14.3 SECONDS (9.7-12.2) H 03/11/18 09:37 INR 1.3 03/11/18 09:37 APTT 28 SECONDS (21-34) 03/11/18 09:37 - Constitutional Appears: No Acute Distress - Head Exam Head Exam: ATRAUMATIC, NORMAL INSPECTION, NORMOCEPHALIC - Eye Exam Eye Exam: Normal appearance, PERRL Pupil Exam: NORMAL ACCOMODATION, PERRL - ENT Exam ENT Exam: Mucous Membranes Moist - Respiratory Exam Respiratory Exam: Clear to Ausculation Bilateral, NORMAL BREATHING PATTERN. absent: Rales, Rhonchi, Wheezes - Cardiovascular Exam Cardiovascular Exam: REGULAR RHYTHM, +S1, +S2. absent: Gallop, Rubs, Murmur - GI/Abdominal Exam GI & Abdominal Exam: Soft, Normal Bowel Sounds. absent: Rigid, Tenderness, Mass , Rebound - Extremities Exam Extremities Exam: Normal Inspection. absent: Calf Tenderness, Pedal Edema - Neurological Exam Neurological Exam: Alert, Awake, CN II-XII Intact, Oriented x3 - Psychiatric Exam Psychiatric exam: Normal Affect, Normal Mood - Skin Skin Exam: Dry, Intact, Warm Assessment and Plan - Assessment and Plan (Free Text) Assessment: This is a 77yo males with past medical history of HTN, PE, peptic ulcer disease , BPH, L hydronephrosis who was admitted for 1. Acute renal failure-improving - most likely secondary to pre-renal azotemia from dehydration from diarrhea and exacerbated by being on ACEI/ARB - FeNa: 0.9%- pre-renal etiology - Cr: 1.3, Baseline ~1.0 - NS@75 - Avoid nephrotoxic agents 2. Metabolic acidosis - resolved - secondary to renal failure 3. Hypokalemia - mild - most likely secondary to poor PO intake - will replace as needed 3. L Kidney Hydronephrosis - Continue to monitor strict I&O - Will need outpatient follow up for chronic hydronephrosis - Lasix renal scan done- awaiting final read 4. BPH - Continue Proscar and Flomax 5. HTN - Normotensive - Continue to hold anti-hypertensive agents (ACEI/ARB) 6. Diarrhea - Continue hydration - Patient is on Liquid diet - recommend to advance as tolerated 7. Bacteremia - one blood culture positive for salmonella - on empiric antibiotics - ID on consult Case seen, discussed and reviewed with Dr. Meyers. Patricia Knox PGY3
--- NOTE | 2018-03-14 06:56 | CP.PCM.PN ---
<Crystal Frausto - Last Filed: 03/14/18 16:33> Subjective - Date & Time of Evaluation Date of Evaluation: 03/14/18 Time of Evaluation: 10:35 - Subjective Subjective: Pt examined at bedside, no acute events overnight. Pt denies chest pain, SOB, abdominal pain, nausea, vomiting. Patient reports his diarrhea is improving, becoming more formed and less frequent Objective - Vital Signs/Intake and Output Vital Signs (last 24 hours): Temp Pulse Resp BP Pulse Ox 98.1 F 76 20 133/86 96 03/13/18 23:55 03/14/18 04:08 03/13/18 23:55 03/13/18 23:55 03/13/18 23:55 Intake and Output: 03/13/18 03/14/18 18:59 06:59 Intake Total 1395 1080 Output Total 280 400 Balance 1115 680 - Medications Medications: Current Medications Finasteride (Proscar) 5 mg PO DAILY [facility] Last Admin: 03/13/18 11:55 Dose: 5 mg Heparin Sodium (Porcine) (Heparin) 5,000 units SC Q8 [facility] Last Admin: 03/14/18 06:04 Dose: 5,000 units Sodium Chloride (Sodium Chloride 0.9%) 1,000 mls @ 75 mls/hr IV .[id number] [facility] Last Admin: 03/13/18 19:35 Dose: Not Given Ceftriaxone Sodium 1 gm/ (Sodium Chloride) 100 mls @ 100 mls/hr IVPB DAILY [facility] PRN Reason: Protocol Last Admin: 03/13/18 11:55 Dose: 100 mls/hr Latanoprost (Xalatan Opht) 0.05 ml OU HS [facility] Last Admin: 03/13/18 22:26 Dose: 0.05 ml Pantoprazole Sodium (Protonix Inj) 40 mg IVP DAILY [facility] Last Admin: 03/11/18 14:44 Dose: 40 mg Saccharomyces Boulardii (Florastor) 250 mg PO BID [facility] Last Admin: 03/13/18 18:41 Dose: 250 mg Tamsulosin HCl (Flomax) 0.4 mg PO DAILY [facility] Last Admin: 03/13/18 11:55 Dose: 0.4 mg - Labs Labs: 03/13/18 08:28 03/13/18 08:28 PT 14.3 SECONDS (9.7-12.2) H 03/11/18 09:37 INR 1.3 03/11/18 09:37 APTT 28 SECONDS (21-34) 03/11/18 09:37 - Constitutional Appears: Non-toxic, No Acute Distress - Head Exam Head Exam: ATRAUMATIC, NORMAL INSPECTION, NORMOCEPHALIC - Eye Exam Eye Exam: EOMI, Normal appearance - ENT Exam ENT Exam: Mucous Membranes Moist - Neck Exam Neck Exam: Normal Inspection - Respiratory Exam Respiratory Exam: Clear to Ausculation Bilateral, NORMAL BREATHING PATTERN. absent: Rales, Rhonchi, Wheezes, Respiratory Distress - Cardiovascular Exam Cardiovascular Exam: REGULAR RHYTHM, +S1, +S2. absent: Tachycardia, Murmur - GI/Abdominal Exam GI & Abdominal Exam: Soft, Normal Bowel Sounds. absent: Distended, Tenderness - Extremities Exam Extremities Exam: Calf Tenderness, Full ROM, Normal Capillary Refill, Normal Inspection, Pedal Edema. absent: Joint Swelling - Back Exam Back Exam: NORMAL INSPECTION - Neurological Exam Neurological Exam: Alert, Normal Gait, Oriented x3 - Psychiatric Exam Psychiatric exam: Normal Affect, Normal Mood Assessment and Plan - Assessment and Plan (Free Text) Assessment: 77 yo male admitted w/ dizziness 2/2 diarrhea x5 days Diarrhea -advanced to diarrhea diet -stool ova/parasite negative -f/u final reports -recommend f/u colonoscopy when resolved Bacteremia -blood cx 1/2, + salmonella group D -awaiting susceptibilities -Ceftriaxone 1g IV QD -Azithromycin 500gm IV QD -ID consult Dr. Price Acute renal failure -BUN/ Cr 69/6.4 on admission -improving--->21/1.3 -nephro consult Dr. Meyers Urinary retention 2/2 BPH -flomax .4mg -finasteride 5mg HTN -holding hypertensive meds -BP stable Hypokalemia-monitor and replete as needed Ppx -protonix 40mg -heparin 5000U Q8 <Juan Jose Veronica - Last Filed: 03/16/18 23:40> Objective - Vital Signs/Intake and Output Vital Signs (last 24 hours): Temp Pulse Resp BP Pulse Ox 98.6 F 66 20 145/85 97 03/16/18 15:00 03/16/18 17:30 03/16/18 15:00 03/16/18 15:00 03/16/18 15:00 - Medications Medications: Current Medications Finasteride (Proscar) 5 mg PO DAILY [facility] Last Admin: 03/16/18 10:05 Dose: 5 mg Heparin Sodium (Porcine) (Heparin) 5,000 units SC Q8 [facility] Last Admin: 03/16/18 22:15 Dose: 5,000 units Sodium Chloride (Sodium Chloride 0.9%) 1,000 mls @ 75 mls/hr IV .[id number] [facility] Last Admin: 03/16/18 22:15 Dose: 75 mls/hr Ceftriaxone Sodium 1 gm/ (Sodium Chloride) 100 mls @ 100 mls/hr IVPB DAILY [facility] PRN Reason: Protocol Last Admin: 03/16/18 11:22 Dose: 100 mls/hr Azithromycin 500 mg/ Sodium (Chloride) 250 mls @ 250 mls/hr IVPB DAILY [facility] PRN Reason: Protocol Last Admin: 03/16/18 12:48 Dose: 250 mls/hr Lactobacillus Acidophilus (Bacid Acidophilus) 1 cap PO BID [facility] Last Admin: 03/16/18 17:52 Dose: 1 cap Latanoprost (Xalatan Opht) 0.05 ml OU HS [facility] Last Admin: 03/16/18 22:16 Dose: 0.05 ml Metronidazole (Flagyl) 500 mg PO Q8 [facility] PRN Reason: Protocol Stop: 03/20/18 14:00 Last Admin: 03/16/18 22:14 Dose: 500 mg Pantoprazole Sodium (Protonix Inj) 40 mg IVP DAILY [facility] Last Admin: 03/11/18 14:44 Dose: 40 mg Tamsulosin HCl (Flomax) 0.4 mg PO DAILY [facility] Last Admin: 03/16/18 10:05 Dose: 0.4 mg - Labs Labs: 03/16/18 07:27 03/16/18 07:27 PT 14.3 SECONDS (9.7-12.2) H 03/11/18 09:37 INR 1.3 03/11/18 09:37 APTT 28 SECONDS (21-34) 03/11/18 09:37 Attending/Attestation - Attestation I have personally seen and examined this patient.: Yes I have fully participated in the care of the patient.: Yes I have reviewed all pertinent clinical information, including history, physical exam and plan: Yes Notes (Text): 03/16/18 23:40 This is a late entry Care of this patient was discussed in detail with resident Dr. Jett Veronica D.O.
[2018-03-14 08:46] LABS: BASO % 0.1 % (0.0-2.0); EOS # 0.3 K/uL (0.0-0.7); EOS % 3.2 % (0.0-4.0); HEMOGLOBIN 13.1 g/dL (12.0-18.0); LYMPH # 0.9 K/uL (1.0-4.3); LYMPH % 10.4 % (20.0-40.0); MEAN CELL VOLUME 86.8 fL (80.0-94.0); MEAN CORPUSCULAR HGB CONC 34.6 g/dL (33.0-37.0); MEAN PLATELET VOLUME 9.2 fL (7.2-11.7); MONO # 0.8 K/uL (0.0-0.8); MONO % 8.6 % (0.0-10.0); NEUT # 6.8 K/uL (1.8-7.0); NEUT % 77.7 % (50.0-75.0); RBC 4.39 Mil/uL (4.40-5.90); RED CELL DISTRIBUTION WIDTH 15.8 % (11.5-14.5); WHITE BLOOD COUNT 8.8 K/uL (4.8-10.8)
[2018-03-14 09:03] LABS: ALB/GLOB RATIO 1.1 (1.0-2.1); ALBUMIN 3.4 g/dL (3.5-5.0); ALT/SGPT 46 U/L (21-72); AST/SGOT 39 U/L (17-59); BLOOD UREA NITROGEN 21 mg/dL (9-20); CALCIUM 8.7 mg/dl (8.6-10.4); GFR AFRICAN-AMERICAN > 60; GFR NON-AFRICAN AMERICAN 54
[2018-03-14] MEDS: Saccharomyces Boulardi 250 mg Cap PO SCH ×2 (09:50→17:52)
--- NOTE | 2018-03-14 14:16 | NM ---
Date of service: 03/14/2018 PROCEDURE: Renal scan/flow study with diuretic challenge HISTORY: L sided hydronephrosis, r/o obstruction COMPARISON: 03/11/2018 CT abdomen and pelvis. TECHNIQUE: 23.3 mCi technetium 99 M DTPA administered intravenous. 20 mg Lasix administered intravenously at frame 20- 20 minutes into the study. FINDINGS: Right Kidney: Flow component: Normal flow to the right kidney Time to peak: 5.5 minutes Peak to T1/2 Peak: 27 minutes. Peak to T1 half following administration of diuretic 60.2 minutes Left Kidney: Flow component: Diminished flow/perfusion to the left kidney. Time to peak: 22.5 minutes Peak to T1/2 Peak: 0.0. Peak to T1 half following administration of diuretic 61 minutes. Split Renal Function: Right kidney 60 % Left kidney 40 % IMPRESSION: 1. Left kidney: Diminished perfusion left kidney compared to right. Left kidney contributes 40% of total renal function. A component of obstructive uropathy demonstrated following administration of diuretic. 2. Right kidney: Normal profusion, flow -function. No evidence of obstructive uropathy.
[2018-03-14] MEDS: Sodium Chloride 0.9% 1,000 ML IV SCH ×2 (16:29→22:21)
[2018-03-14] MEDS: Azithromycin 500 MG in Sodium Chloride 0.9% 250 ML IVPB SCH (17:00)
--- NOTE | 2018-03-14 18:35 | CP.PCM.PN ---
Subjective - Date & Time of Evaluation Date of Evaluation: 03/14/18 Time of Evaluation: 07:00 - Subjective Subjective: blood c/s + salmonella IV rx in progress Objective - Vital Signs/Intake and Output Vital Signs (last 24 hours): Temp Pulse Resp BP Pulse Ox 98.3 F 84 20 126/83 98 03/14/18 15:00 03/14/18 15:00 03/14/18 15:00 03/14/18 15:00 03/14/18 15:00 Intake and Output: 03/14/18 03/14/18 06:59 18:59 Intake Total 1080 Output Total 400 Balance 680 - Medications Medications: Current Medications Finasteride (Proscar) 5 mg PO DAILY [facility] Last Admin: 03/14/18 09:50 Dose: 5 mg Heparin Sodium (Porcine) (Heparin) 5,000 units SC Q8 [facility] Last Admin: 03/14/18 06:04 Dose: 5,000 units Sodium Chloride (Sodium Chloride 0.9%) 1,000 mls @ 75 mls/hr IV .[id number] [facility] Last Admin: 03/14/18 16:29 Dose: 75 mls/hr Ceftriaxone Sodium 1 gm/ (Sodium Chloride) 100 mls @ 100 mls/hr IVPB DAILY [facility] PRN Reason: Protocol Last Admin: 03/14/18 09:49 Dose: 100 mls/hr Azithromycin 500 mg/ Sodium (Chloride) 250 mls @ 250 mls/hr IVPB DAILY [facility] PRN Reason: Protocol Last Admin: 03/14/18 17:00 Dose: 250 mls/hr Latanoprost (Xalatan Opht) 0.05 ml OU HS [facility] Last Admin: 03/13/18 22:26 Dose: 0.05 ml Pantoprazole Sodium (Protonix Inj) 40 mg IVP DAILY [facility] Last Admin: 03/11/18 14:44 Dose: 40 mg Saccharomyces Boulardii (Florastor) 250 mg PO BID [facility] Last Admin: 03/14/18 17:52 Dose: 250 mg Tamsulosin HCl (Flomax) 0.4 mg PO DAILY [facility] Last Admin: 03/14/18 09:50 Dose: 0.4 mg - Labs Labs: 03/14/18 08:37 03/14/18 08:37 PT 14.3 SECONDS (9.7-12.2) H 03/11/18 09:37 INR 1.3 03/11/18 09:37 APTT 28 SECONDS (21-34) 03/11/18 09:37 - Constitutional Appears: Non-toxic, Chronically Ill - Head Exam Head Exam: NORMOCEPHALIC - Eye Exam Eye Exam: PERRL - ENT Exam ENT Exam: Mucous Membranes Dry - Neck Exam Neck Exam: absent: Lymphadenopathy - Respiratory Exam Respiratory Exam: Decreased Breath Sounds - Cardiovascular Exam Cardiovascular Exam: REGULAR RHYTHM - GI/Abdominal Exam GI & Abdominal Exam: Distended - Rectal Exam Rectal Exam: Deferred - Exam Exam: NORMAL INSPECTION - Extremities Exam Extremities Exam: absent: Pedal Edema - Back Exam Back Exam: absent: CVA tenderness (L), CVA tenderness (R) Assessment and Plan (1) Bacteremia Status: Acute (2) Acute renal insufficiency Status: Acute (3) Diarrhea Status: Acute (4) Near syncope Status: Acute
[2018-03-14] MEDS: Latanoprost 2.5 ml Opht Soln OU SCH (22:17)
[2018-03-15] MEDS: Saccharomyces Boulardi 250 mg Cap PO SCH (09:35)
[2018-03-15] MEDS: Sodium Chloride 0.9% 1,000 ML IV SCH ×2 (09:40→11:47)
--- NOTE | 2018-03-15 09:56 | CP.PCM.PN ---
Subjective - Date & Time of Evaluation Date of Evaluation: 03/15/18 Time of Evaluation: 09:45 - Subjective Subjective: Hospitalist Progress Note Patient was seen and examined at 9:45 AM 03/15/18 [id number] Currently upon FULL ROS NO bowel movement yet today However had total of 4 bowel movements yesterday 03/14/18 that were soft and watery NO abdominal pain Tolerating diet without n/v or abdominal pain afterwards Muscle aches from upper left axillary area to the left hip (he sleeps mostly on this side) NO other complaints upon FULL ROS Exam: General: AAOX3, NAD HEENT: NCA (NO open lesion/laceration on scalp), EOMI, PERRLA, NO cervical/ supraclavicular/submandibular lymphadenopathy, NO pharyngeal erythema/exudate, Nasal Turbinates are nonerythematous/nonedematous, Oral Mucosa is moist Cardio: NS1 and NS2, NO M/R/G Resp: CTA B/L, NO R/R/W GI: BSx4, Soft, NON tender in all 4 quadrants, NO HSM, NO guarding/rebound tenderness Ext: Pulses are strong and equal, Capillary Refill is 2 seconds, NO edema Neuro: CN II through XII are grossly intact Assessments: 1). Diarrhea This is slowly resolving as stools are becoming less watery Stool Culture is positive to Giardia and patient started on Metronidazole 500 mg PO 3x/day through 03/20/18 2). Acute Renal Failure Improved with IVF NS at 75 ml/hr 3). Bacteremia: Salmonella Blood Culture 03/11/18 Ceftriaxone 1 gm IV 1x/day Azithromycin 500 mg IV 1x/day Repeat Blood Culture to be ordered on 03/16/18 4). Hx Urinary Retention Flomax 0.4 mg PO 1x/day Proscar 5 mg PO 1x/day 5). Hx HTN Holding Losartan and HCTZ considering the ARF Blood pressure has been under control 6). Hx PE Treated in May 2017 Will need to make sure that he followed up with Hematology 7). 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 Hx Iron Deficiency Seen by Hematology in May 2017. Will need to make sure that he followed up with Hematology. HgB/Hct are stable 9). Left Kidney Hydronephrosis Renal U/S shows left chronic hydronephrosis but the CT Abdomen/Pelvis did not and showed a stable left parapelvic kidney cyst stable since 2017 10). Prophylaxis Heparin 5,000 units SC Q8H Latanoprost 0.005% 1 drop Bilateral Eyes 1x/day Tylenol 650 mg PO Q6H PRN Pain/Fever Lactobacillus 1 tab PO 2x/day Disposition: will need to have repeat blood culture clear of the Salmonella prior to discharge Juan Jose Veronica D.O. Objective - Vital Signs/Intake and Output Vital Signs (last 24 hours): Temp Pulse Resp BP Pulse Ox 98.2 F 67 20 127/80 95 03/14/18 23:50 03/15/18 03:55 03/14/18 23:50 03/14/18 23:50 03/14/18 23:50 Intake and Output: 03/15/18 03/15/18 06:59 18:59 Intake Total 1100 Balance 1100 - Medications Medications: Current Medications Finasteride (Proscar) 5 mg PO DAILY [facility] Last Admin: 03/15/18 09:35 Dose: 5 mg Heparin Sodium (Porcine) (Heparin) 5,000 units SC Q8 [facility] Last Admin: 03/15/18 05:56 Dose: 5,000 units Sodium Chloride (Sodium Chloride 0.9%) 1,000 mls @ 75 mls/hr IV .[id number] [facility] Last Admin: 03/15/18 09:40 Dose: 75 mls/hr Ceftriaxone Sodium 1 gm/ (Sodium Chloride) 100 mls @ 100 mls/hr IVPB DAILY [facility] PRN Reason: Protocol Last Admin: 03/15/18 09:34 Dose: 100 mls/hr Azithromycin 500 mg/ Sodium (Chloride) 250 mls @ 250 mls/hr IVPB DAILY [facility] PRN Reason: Protocol Last Admin: 03/14/18 17:00 Dose: 250 mls/hr Latanoprost (Xalatan Opht) 0.05 ml OU HS [facility] Last Admin: 03/14/18 22:17 Dose: 0.05 ml Pantoprazole Sodium (Protonix Inj) 40 mg IVP DAILY [facility] Last Admin: 03/11/18 14:44 Dose: 40 mg Saccharomyces Boulardii (Florastor) 250 mg PO BID [facility] Last Admin: 03/15/18 09:35 Dose: 250 mg Tamsulosin HCl (Flomax) 0.4 mg PO DAILY [facility] Last Admin: 03/15/18 09:35 Dose: 0.4 mg - Labs Labs: 03/14/18 08:37 03/14/18 08:37 PT 14.3 SECONDS (9.7-12.2) H 03/11/18 09:37 INR 1.3 03/11/18 09:37 APTT 28 SECONDS (21-34) 03/11/18 09:37
[2018-03-15] MEDS: Azithromycin 500 MG in Sodium Chloride 0.9% 250 ML IVPB SCH (11:41)
[2018-03-15] MEDS ORDERED: Potassium Chloride 20 mEq ER Tab PO ONE (12:45)
[2018-03-15] MEDS: Lactobacillus Acidophilus 500 MU Cap PO SCH (18:04)
[2018-03-15] MEDS: Latanoprost 2.5 ml Opht Soln OU SCH (21:59)
--- NOTE | 2018-03-15 22:59 | CP.PCM.PN ---
Subjective - Date & Time of Evaluation Date of Evaluation: 03/15/18 Time of Evaluation: 14:00 - Subjective Subjective: Reports diarrhea improving; Objective - Vital Signs/Intake and Output Vital Signs (last 24 hours): Temp Pulse Resp BP Pulse Ox 98.1 F 80 20 123/80 99 03/15/18 15:38 03/15/18 15:38 03/15/18 15:38 03/15/18 15:38 03/15/18 15:38 Intake and Output: 03/15/18 03/16/18 18:59 06:59 Intake Total 900 Balance 900 - Medications Medications: Current Medications Finasteride (Proscar) 5 mg PO DAILY [facility] Last Admin: 03/15/18 09:35 Dose: 5 mg Heparin Sodium (Porcine) (Heparin) 5,000 units SC Q8 [facility] Last Admin: 03/15/18 21:52 Dose: 5,000 units Sodium Chloride (Sodium Chloride 0.9%) 1,000 mls @ 75 mls/hr IV .[id number] [facility] Last Admin: 03/15/18 11:47 Dose: Not Given Ceftriaxone Sodium 1 gm/ (Sodium Chloride) 100 mls @ 100 mls/hr IVPB DAILY [facility] PRN Reason: Protocol Last Admin: 03/15/18 09:34 Dose: 100 mls/hr Azithromycin 500 mg/ Sodium (Chloride) 250 mls @ 250 mls/hr IVPB DAILY [facility] PRN Reason: Protocol Last Admin: 03/15/18 11:41 Dose: 250 mls/hr Lactobacillus Acidophilus (Bacid Acidophilus) 1 cap PO BID [facility] Last Admin: 03/15/18 18:04 Dose: 1 cap Latanoprost (Xalatan Opht) 0.05 ml OU HS [facility] Last Admin: 03/15/18 21:59 Dose: 0.05 ml Metronidazole (Flagyl) 500 mg PO Q8 [facility] PRN Reason: Protocol Stop: 03/20/18 14:00 Last Admin: 03/15/18 21:52 Dose: 500 mg Pantoprazole Sodium (Protonix Inj) 40 mg IVP DAILY [facility] Last Admin: 03/11/18 14:44 Dose: 40 mg Tamsulosin HCl (Flomax) 0.4 mg PO DAILY [facility] Last Admin: 03/15/18 09:35 Dose: 0.4 mg - Labs Labs: 03/14/18 08:37 03/14/18 08:37 PT 14.3 SECONDS (9.7-12.2) H 03/11/18 09:37 INR 1.3 03/11/18 09:37 APTT 28 SECONDS (21-34) 03/11/18 09:37 - Constitutional Appears: Non-toxic, No Acute Distress - Eye Exam Eye Exam: Normal appearance - ENT Exam ENT Exam: Mucous Membranes Moist - Respiratory Exam Respiratory Exam: Clear to Ausculation Bilateral. absent: Respiratory Distress - Cardiovascular Exam Cardiovascular Exam: RRR, +S1, +S2 - GI/Abdominal Exam GI & Abdominal Exam: Soft. absent: Distended, Tenderness - Extremities Exam Additional comments: no leg edema; - Neurological Exam Neurological Exam: Alert, Awake - Psychiatric Exam Psychiatric exam: Normal Mood. absent: Agitated - Skin Skin Exam: Warm. absent: Cyanosis Assessment and Plan (1) Acute kidney injury Assessment & Plan: Resolving; pre-renal etiology in the setting of GI losses; continue NS at 75 cc/ hr; Status: Acute (2) HTN (hypertension) Assessment & Plan: On anti-htn meds at home; currently normotensive, continue to hold meds; Status: Chronic (3) Hydronephrosis Assessment & Plan: With evidence of L ureteral obstruction on renal lasix scan; will need outpatient urology f/u for possible cystoscopy/pyelogram/stenting; Status: Chronic - Assessment and Plan (Free Text) Assessment: Thank you for this referral, we will continue to monitor;
[2018-03-16 07:44] LABS: BASO % 0.2 % (0.0-2.0); EOS # 0.2 K/uL (0.0-0.7); EOS % 3.5 % (0.0-4.0); HEMOGLOBIN 12.3 g/dL (12.0-18.0); LYMPH # 1.4 K/uL (1.0-4.3); LYMPH % 21.3 % (20.0-40.0); MEAN CELL VOLUME 86.3 fL (80.0-94.0); MEAN CORPUSCULAR HEMOGLOBIN 29.8 pg (27.0-31.0); MEAN CORPUSCULAR HGB CONC 34.5 g/dL (33.0-37.0); MONO # 0.6 K/uL (0.0-0.8); NEUT # 4.2 K/uL (1.8-7.0); NRBC % 0.1 % (0.0-2.0); RBC 4.14 Mil/uL (4.40-5.90); RED CELL DISTRIBUTION WIDTH 15.1 % (11.5-14.5); WHITE BLOOD COUNT 6.5 K/uL (4.8-10.8)
[2018-03-16 08:06] LABS: ALT/SGPT 58 U/L (21-72); AST/SGOT 41 U/L (17-59); BLOOD UREA NITROGEN 11 mg/dL (9-20); CALCIUM 8.5 mg/dl (8.6-10.4); GFR AFRICAN-AMERICAN > 60; GFR NON-AFRICAN AMERICAN > 60
[2018-03-16] MEDS ORDERED: Magnesium Sulfate 1 gm in D5W 1 GM/100 ML BAG IVPB ONE (09:23)
[2018-03-16] MEDS ORDERED: Potassium Chloride 20 mEq ER Tab PO ONE (10:00)
[2018-03-16] MEDS: Lactobacillus Acidophilus 500 MU Cap PO SCH ×2 (10:05→17:52)
--- NOTE | 2018-03-16 12:06 | CP.PCM.PN ---
Subjective - Date & Time of Evaluation Date of Evaluation: 03/16/18 Time of Evaluation: 11:45 - Subjective Subjective: Hospitalist Progress Note Patient was seen and examined at 11:45 AM 03/16/18 [id number] Currently upon FULL ROS Moved his bowels today and they were mostly soft NO abdominal pain Tolerating diet without n/v or abdominal pain afterwards Muscle aches from upper left axillary area to the left hip (he sleeps mostly on this side) NO other complaints upon FULL ROS Exam: General: AAOX3, NAD HEENT: NCA (NO open lesion/laceration on scalp), EOMI, PERRLA, NO cervical/ supraclavicular/submandibular lymphadenopathy, NO pharyngeal erythema/exudate, Nasal Turbinates are nonerythematous/nonedematous, Oral Mucosa is moist Cardio: NS1 and NS2, NO M/R/G Resp: CTA B/L, NO R/R/W GI: BSx4, Soft, NON tender in all 4 quadrants, NO HSM, NO guarding/rebound tenderness Ext: Pulses are strong and equal, Capillary Refill is 2 seconds, NO edema Neuro: CN II through XII are grossly intact Assessments: 1). Diarrhea This is slowly resolving as stools are becoming less watery each day Stool Culture is positive to Giardia and patient started on Metronidazole 500 mg PO 3x/day through 03/20/18 2). Acute Renal Failure Improved with IVF NS at 75 ml/hr 3). Bacteremia: Salmonella Blood Culture 03/11/18 Ceftriaxone 1 gm IV 1x/day Azithromycin 500 mg IV 1x/day Repeat Blood Culture 03/16/18: once this is negative at 72 hours then discharge patient 4). Hx Urinary Retention Flomax 0.4 mg PO 1x/day Proscar 5 mg PO 1x/day 5). Hx HTN Holding Losartan and HCTZ considering the ARF Blood pressure has been under control: if blood pressure rises then add Norvasc 6). Hx PE Treated in May 2017 Will need to make sure that he followed up with Hematology 7). 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 Hx Iron Deficiency Seen by Hematology in May 2017. Will need to make sure that he followed up with Hematology. HgB/Hct are stable 9). Left Kidney Hydronephrosis Renal U/S shows left chronic hydronephrosis but the CT Abdomen/Pelvis did not and showed a stable left parapelvic kidney cyst stable since 2017 10). Prophylaxis Heparin 5,000 units SC Q8H Latanoprost 0.005% 1 drop Bilateral Eyes 1x/day Tylenol 650 mg PO Q6H PRN Pain/Fever Lactobacillus 1 tab PO 2x/day Disposition: will need to have repeat blood culture 02/13/18 clear of the Salmonella prior to discharge Juan Jose Veronica D.O. Objective - Vital Signs/Intake and Output Vital Signs (last 24 hours): Temp Pulse Resp BP Pulse Ox 99.7 F H 83 20 148/94 H 99 03/16/18 07:00 03/16/18 07:00 03/16/18 07:00 03/16/18 07:00 03/16/18 07:00 Intake and Output: 03/16/18 03/16/18 06:59 18:59 Intake Total 1100 Balance 1100 - Medications Medications: Current Medications Finasteride (Proscar) 5 mg PO DAILY [facility] Last Admin: 03/16/18 10:05 Dose: 5 mg Heparin Sodium (Porcine) (Heparin) 5,000 units SC Q8 [facility] Last Admin: 03/16/18 05:19 Dose: 5,000 units Sodium Chloride (Sodium Chloride 0.9%) 1,000 mls @ 75 mls/hr IV .[id number] [facility] Last Admin: 03/15/18 11:47 Dose: Not Given Ceftriaxone Sodium 1 gm/ (Sodium Chloride) 100 mls @ 100 mls/hr IVPB DAILY [facility] PRN Reason: Protocol Last Admin: 03/16/18 11:22 Dose: 100 mls/hr Azithromycin 500 mg/ Sodium (Chloride) 250 mls @ 250 mls/hr IVPB DAILY [facility] PRN Reason: Protocol Last Admin: 03/15/18 11:41 Dose: 250 mls/hr Lactobacillus Acidophilus (Bacid Acidophilus) 1 cap PO BID [facility] Last Admin: 03/16/18 10:05 Dose: 1 cap Latanoprost (Xalatan Opht) 0.05 ml OU HS [facility] Last Admin: 03/15/18 21:59 Dose: 0.05 ml Metronidazole (Flagyl) 500 mg PO Q8 [facility] PRN Reason: Protocol Stop: 03/20/18 14:00 Last Admin: 03/16/18 05:19 Dose: 500 mg Pantoprazole Sodium (Protonix Inj) 40 mg IVP DAILY [facility] Last Admin: 03/11/18 14:44 Dose: 40 mg Tamsulosin HCl (Flomax) 0.4 mg PO DAILY [facility] Last Admin: 03/16/18 10:05 Dose: 0.4 mg - Labs Labs: 03/16/18 07:27 03/16/18 07:27 PT 14.3 SECONDS (9.7-12.2) H 03/11/18 09:37 INR 1.3 03/11/18 09:37 APTT 28 SECONDS (21-34) 03/11/18 09:37
[2018-03-16] MEDS: Azithromycin 500 MG in Sodium Chloride 0.9% 250 ML IVPB SCH (12:48)
--- NOTE | 2018-03-16 13:10 | CP.PCM.PN ---
Subjective - Date & Time of Evaluation Date of Evaluation: 03/16/18 Time of Evaluation: 09:00 - Subjective Subjective: no fever less diarrhea no abd pain Objective - Vital Signs/Intake and Output Vital Signs (last 24 hours): Temp Pulse Resp BP Pulse Ox 99.7 F H 83 20 148/94 H 99 03/16/18 07:00 03/16/18 07:00 03/16/18 07:00 03/16/18 07:00 03/16/18 07:00 Intake and Output: 03/16/18 03/16/18 06:59 18:59 Intake Total 1100 Balance 1100 - Medications Medications: Current Medications Finasteride (Proscar) 5 mg PO DAILY [facility] Last Admin: 03/16/18 10:05 Dose: 5 mg Heparin Sodium (Porcine) (Heparin) 5,000 units SC Q8 [facility] Last Admin: 03/16/18 05:19 Dose: 5,000 units Sodium Chloride (Sodium Chloride 0.9%) 1,000 mls @ 75 mls/hr IV .[id number] [facility] Last Admin: 03/15/18 11:47 Dose: Not Given Ceftriaxone Sodium 1 gm/ (Sodium Chloride) 100 mls @ 100 mls/hr IVPB DAILY [facility] PRN Reason: Protocol Last Admin: 03/16/18 11:22 Dose: 100 mls/hr Azithromycin 500 mg/ Sodium (Chloride) 250 mls @ 250 mls/hr IVPB DAILY [facility] PRN Reason: Protocol Last Admin: 03/16/18 12:48 Dose: 250 mls/hr Lactobacillus Acidophilus (Bacid Acidophilus) 1 cap PO BID [facility] Last Admin: 03/16/18 10:05 Dose: 1 cap Latanoprost (Xalatan Opht) 0.05 ml OU HS [facility] Last Admin: 03/15/18 21:59 Dose: 0.05 ml Metronidazole (Flagyl) 500 mg PO Q8 [facility] PRN Reason: Protocol Stop: 03/20/18 14:00 Last Admin: 03/16/18 05:19 Dose: 500 mg Pantoprazole Sodium (Protonix Inj) 40 mg IVP DAILY [facility] Last Admin: 03/11/18 14:44 Dose: 40 mg Tamsulosin HCl (Flomax) 0.4 mg PO DAILY [facility] Last Admin: 03/16/18 10:05 Dose: 0.4 mg - Labs Labs: 03/16/18 07:27 03/16/18 07:27 PT 14.3 SECONDS (9.7-12.2) H 03/11/18 09:37 INR 1.3 03/11/18 09:37 APTT 28 SECONDS (21-34) 03/11/18 09:37 - Constitutional Appears: Non-toxic, Chronically Ill - Head Exam Head Exam: NORMOCEPHALIC - Eye Exam Eye Exam: PERRL - ENT Exam ENT Exam: Mucous Membranes Dry - Neck Exam Neck Exam: absent: Lymphadenopathy - Respiratory Exam Respiratory Exam: Decreased Breath Sounds, Rhonchi - Cardiovascular Exam Cardiovascular Exam: REGULAR RHYTHM, +S1, +S2 - GI/Abdominal Exam GI & Abdominal Exam: Distended, Soft. absent: Tenderness - Rectal Exam Rectal Exam: Deferred - Exam Exam: NORMAL INSPECTION - Extremities Exam Extremities Exam: absent: Pedal Edema - Back Exam Back Exam: absent: CVA tenderness (L), CVA tenderness (R) - Neurological Exam Neurological Exam: Alert, Awake, Oriented x3 Neuro motor strength exam: Left Upper Extremity: 4, Right Upper Extremity: 4, Left Lower Extremity: 4, Right Lower Extremity: 4 - Psychiatric Exam Psychiatric exam: Normal Mood - Skin Skin Exam: Dry Assessment and Plan (1) Bacteremia Status: Acute (2) Acute renal insufficiency Status: Acute (3) Diarrhea Status: Acute (4) Near syncope Status: Acute - Assessment and Plan (Free Text) Assessment: resolving sepsis/ bacteremia salmonellosis from DR carrillo
[2018-03-16] MEDS: Sodium Chloride 0.9% 1,000 ML IV SCH (22:15)
[2018-03-16] MEDS: Latanoprost 2.5 ml Opht Soln OU SCH (22:16)
--- NOTE | 2018-03-17 06:24 | CP.PCM.PN ---
Subjective - Date & Time of Evaluation Date of Evaluation: 03/17/18 Time of Evaluation: 06:24 - Subjective Subjective: Nephrology Progress Note for Patricia Mensah PGY3 Patient seen and examined at bedside. There were no acute overnight events as per nursing staff. Patient reports his diarrhea has resolved. He denies chest pain, shortness of breath, nausea/vomiting/diarrhea, fever/chills, numbness/ tingling, dysuria/hematuria. Objective - Vital Signs/Intake and Output Vital Signs (last 24 hours): Temp Pulse Resp BP Pulse Ox 98.4 F 79 20 144/87 99 03/16/18 23:51 03/16/18 23:51 03/16/18 23:51 03/16/18 23:51 03/16/18 23:51 - Medications Medications: Current Medications Finasteride (Proscar) 5 mg PO DAILY [facility] Last Admin: 03/16/18 10:05 Dose: 5 mg Heparin Sodium (Porcine) (Heparin) 5,000 units SC Q8 [facility] Last Admin: 03/17/18 05:44 Dose: 5,000 units Sodium Chloride (Sodium Chloride 0.9%) 1,000 mls @ 75 mls/hr IV .[id number] [facility] Last Admin: 03/16/18 22:15 Dose: 75 mls/hr Ceftriaxone Sodium 1 gm/ (Sodium Chloride) 100 mls @ 100 mls/hr IVPB DAILY [facility] PRN Reason: Protocol Last Admin: 03/16/18 11:22 Dose: 100 mls/hr Azithromycin 500 mg/ Sodium (Chloride) 250 mls @ 250 mls/hr IVPB DAILY [facility] PRN Reason: Protocol Last Admin: 03/16/18 12:48 Dose: 250 mls/hr Lactobacillus Acidophilus (Bacid Acidophilus) 1 cap PO BID [facility] Last Admin: 03/16/18 17:52 Dose: 1 cap Latanoprost (Xalatan Opht) 0.05 ml OU HS [facility] Last Admin: 03/16/18 22:16 Dose: 0.05 ml Metronidazole (Flagyl) 500 mg PO Q8 [facility] PRN Reason: Protocol Stop: 03/20/18 14:00 Last Admin: 03/17/18 05:45 Dose: 500 mg Pantoprazole Sodium (Protonix Inj) 40 mg IVP DAILY [facility] Last Admin: 03/11/18 14:44 Dose: 40 mg Tamsulosin HCl (Flomax) 0.4 mg PO DAILY [facility] Last Admin: 03/16/18 10:05 Dose: 0.4 mg - Labs Labs: 03/16/18 07:27 03/16/18 07:27 PT 14.3 SECONDS (9.7-12.2) H 03/11/18 09:37 INR 1.3 03/11/18 09:37 APTT 28 SECONDS (21-34) 03/11/18 09:37 - Constitutional Appears: No Acute Distress - Head Exam Head Exam: ATRAUMATIC, NORMAL INSPECTION, NORMOCEPHALIC - Eye Exam Eye Exam: Normal appearance, PERRL Pupil Exam: NORMAL ACCOMODATION - ENT Exam ENT Exam: Mucous Membranes Moist - Respiratory Exam Respiratory Exam: Clear to Ausculation Bilateral, NORMAL BREATHING PATTERN. absent: Rales, Rhonchi, Wheezes - Cardiovascular Exam Cardiovascular Exam: REGULAR RHYTHM, +S1, +S2. absent: Gallop, Rubs, Murmur - GI/Abdominal Exam GI & Abdominal Exam: Soft, Normal Bowel Sounds. absent: Rigid, Tenderness, Mass , Rebound - Extremities Exam Extremities Exam: Normal Inspection. absent: Calf Tenderness, Pedal Edema - Neurological Exam Neurological Exam: Alert, Awake, CN II-XII Intact, Oriented x3 - Psychiatric Exam Psychiatric exam: Normal Affect, Normal Mood - Skin Skin Exam: Dry, Intact, Warm Assessment and Plan - Assessment and Plan (Free Text) Assessment: This is a 77yo males with past medical history of HTN, PE, peptic ulcer disease , BPH, L hydronephrosis who was admitted for 1. Acute renal failure- resolved - most likely secondary to pre-renal azotemia from dehydration from diarrhea and exacerbated by being on ACEI/ARB - Cr at baseline - Will DC IV fluids. - Avoid nephrotoxic agents 2. L Kidney Hydronephrosis - chronic - Lasix renal scan showed L ureteral obstruction - Will need to follow up with Urologist as outpatient for possible pyelogram/ cysto/stent 4. BPH- chronic - Proscar and Flomax 5. HTN - stable - Continue to hold anti-hypertensive agents (ACEI/ARB) - will possibly restart tomorrow 6. Diarrhea - resolved - + for Giardia - tolerating diet - On antibiotics 7. Bacteremia - one blood culture positive for salmonella - on antibiotics Case seen, discussed and reviewed with Dr. Meyers. Patricia Knox PGY3
--- NOTE | 2018-03-17 06:56 | CP.PCM.PN ---
<Gagandeep Maldonado L - Last Filed: 03/17/18 18:09> Subjective - Date & Time of Evaluation Date of Evaluation: 03/17/18 Time of Evaluation: 06:55 - Subjective Subjective: Resident Note for Hospitalist Service Patient examined at bedside. No acute events overnight. Patient was resting comfortably in his chair and eating breakfast. States that he is feeling much better today. Denies headache, dizziness, abdominal pain, nausea, vomiting. States he did have a bowel movement with soft stools yesterday, however it was not diarrhea. Objective - Vital Signs/Intake and Output Vital Signs (last 24 hours): Temp Pulse Resp BP Pulse Ox 98.4 F 79 20 144/87 99 03/16/18 23:51 03/16/18 23:51 03/16/18 23:51 03/16/18 23:51 03/16/18 23:51 - Medications Medications: Current Medications Finasteride (Proscar) 5 mg PO DAILY [facility] Last Admin: 03/16/18 10:05 Dose: 5 mg Heparin Sodium (Porcine) (Heparin) 5,000 units SC Q8 [facility] Last Admin: 03/17/18 05:44 Dose: 5,000 units Sodium Chloride (Sodium Chloride 0.9%) 1,000 mls @ 75 mls/hr IV .[id number] [facility] Last Admin: 03/16/18 22:15 Dose: 75 mls/hr Ceftriaxone Sodium 1 gm/ (Sodium Chloride) 100 mls @ 100 mls/hr IVPB DAILY [facility] PRN Reason: Protocol Last Admin: 03/16/18 11:22 Dose: 100 mls/hr Azithromycin 500 mg/ Sodium (Chloride) 250 mls @ 250 mls/hr IVPB DAILY [facility] PRN Reason: Protocol Last Admin: 03/16/18 12:48 Dose: 250 mls/hr Lactobacillus Acidophilus (Bacid Acidophilus) 1 cap PO BID [facility] Last Admin: 03/16/18 17:52 Dose: 1 cap Latanoprost (Xalatan Opht) 0.05 ml OU HS [facility] Last Admin: 03/16/18 22:16 Dose: 0.05 ml Metronidazole (Flagyl) 500 mg PO Q8 [facility] PRN Reason: Protocol Stop: 03/20/18 14:00 Last Admin: 03/17/18 05:45 Dose: 500 mg Pantoprazole Sodium (Protonix Inj) 40 mg IVP DAILY [facility] Last Admin: 03/11/18 14:44 Dose: 40 mg Tamsulosin HCl (Flomax) 0.4 mg PO DAILY [facility] Last Admin: 03/16/18 10:05 Dose: 0.4 mg - Labs Labs: 03/16/18 07:27 03/16/18 07:27 PT 14.3 SECONDS (9.7-12.2) H 03/11/18 09:37 INR 1.3 03/11/18 09:37 APTT 28 SECONDS (21-34) 03/11/18 09:37 - Additional Findings Additional findings: - Constitutional Appears: Non-toxic, No Acute Distress - Head Exam Head Exam: ATRAUMATIC, NORMAL INSPECTION - Eye Exam Eye Exam: EOMI, Normal appearance - ENT Exam ENT Exam: Mucous Membranes Moist - Neck Exam Neck Exam: Normal Inspection - Respiratory Exam Respiratory Exam: Clear to Ausculation Bilateral, NORMAL BREATHING PATTERN - Cardiovascular Exam Cardiovascular Exam: REGULAR RHYTHM, +S1, +S2 - GI/Abdominal Exam GI & Abdominal Exam: Soft, Normal Bowel Sounds. absent: Distended, Tenderness - Extremities Exam Extremities Exam: Full ROM, Normal Capillary Refill, Normal Inspection - Back Exam Back Exam: NORMAL INSPECTION - Neurological Exam Neurological Exam: Alert, Oriented x3 - Psychiatric Exam Psychiatric exam: Normal Affect, Normal Mood Assessment and Plan - Assessment and Plan (Free Text) Plan: Diarrhea- resolving Stool Culture is positive to Giardia Metronidazole 500 mg PO 3x/day through 03/20/18 Acute Renal Failure- resolving IVF NS at 75 ml/hr discontinued Bacteremia Salmonella Blood Culture 03/11/18 Ceftriaxone 1 gm IV 1x/day Azithromycin 500 mg IV 1x/day Repeat Blood Culture 03/16/18: once this is negative at 72 hours then discharge patient Hx Urinary Retention Flomax 0.4 mg PO 1x/day Proscar 5 mg PO 1x/day Hx HTN Holding Losartan and HCTZ considering the ARF Blood pressure has been under control: if blood pressure rises then add Norvasc Hx PE Treated in May 2017 Will need to make sure that he followed up with Hematology 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 Will need to make sure that he followed up with Hematology. HgB/Hct are stable Left kidney hydronephrosis Renal U/S shows left chronic hydronephrosis but the CT Abdomen/Pelvis did not and showed a stable left parapelvic kidney cyst stable since 2017 Prophylaxis Heparin 5,000 units SC Q8H Latanoprost 0.005% 1 drop Bilateral Eyes 1x/day Lactobacillus 1 tab PO 2x/day Disposition: will need to have repeat blood culture 02/13/18 clear of the Salmonella for 72 hours prior to discharge Gagandeep Maldonado PGY-1 <Guadalupe Perez V - Last Filed: 03/17/18 22:26> Objective - Vital Signs/Intake and Output Vital Signs (last 24 hours): Temp Pulse Resp BP Pulse Ox 98.4 F 90 20 130/87 100 03/17/18 16:00 03/17/18 16:15 03/17/18 16:00 03/17/18 16:00 03/17/18 16:00 Intake and Output: 03/17/18 03/18/18 18:59 06:59 Intake Total 1005 Balance 1005 - Medications Medications: Current Medications Finasteride (Proscar) 5 mg PO DAILY [facility] Last Admin: 03/17/18 09:37 Dose: 5 mg Heparin Sodium (Porcine) (Heparin) 5,000 units SC Q8 [facility] Last Admin: 03/17/18 21:49 Dose: 5,000 units Ceftriaxone Sodium 1 gm/ (Sodium Chloride) 100 mls @ 100 mls/hr IVPB DAILY [facility] PRN Reason: Protocol Last Admin: 03/17/18 11:47 Dose: 100 mls/hr Azithromycin 500 mg/ Sodium (Chloride) 250 mls @ 250 mls/hr IVPB DAILY [facility] PRN Reason: Protocol Last Admin: 03/17/18 09:36 Dose: 250 mls/hr Lactobacillus Acidophilus (Bacid Acidophilus) 1 cap PO BID [facility] Last Admin: 03/17/18 19:04 Dose: 1 cap Latanoprost (Xalatan Opht) 0.05 ml OU HS [facility] Last Admin: 03/16/18 22:16 Dose: 0.05 ml Metronidazole (Flagyl) 500 mg PO Q8 [facility] PRN Reason: Protocol Stop: 03/20/18 14:00 Last Admin: 03/17/18 21:49 Dose: 500 mg Pantoprazole Sodium (Protonix Inj) 40 mg IVP DAILY [facility] Last Admin: 03/11/18 14:44 Dose: 40 mg Tamsulosin HCl (Flomax) 0.4 mg PO DAILY [facility] Last Admin: 03/17/18 09:37 Dose: 0.4 mg - Labs Labs: 03/17/18 07:28 03/17/18 07:28 PT 14.3 SECONDS (9.7-12.2) H 03/11/18 09:37 INR 1.3 03/11/18 09:37 APTT 28 SECONDS (21-34) 03/11/18 09:37 Attending/Attestation - Attestation I have personally seen and examined this patient.: Yes I have fully participated in the care of the patient.: Yes I have reviewed all pertinent clinical information, including history, physical exam and plan: Yes Notes (Text): Patient seen, examined, and case discussed with day-time resident. Patient seen this morning. Patient report stool is becoming more formed and less. Patient denies chest pain, denies palpitations, denies abdominal pain, denies nausea, denies vomitting. Patient is on IV abx to cover for bacteremia and diarrhea. Patient's renal function has improved. IV fluids d/c nephrology. Possible restart anti-hypertensives tomorrow. Recommendation for urology noted. Patient has seen Dr. Sherrell Sanderson in 05/2017. Assessment/Plan 1). Diarrhea Assessment/Plan * This is slowly resolving as stools are becoming less watery each day * Stool Culture is positive to Giardia and patient started on Metronidazole 500 mg PO 3x/day through 03/20/18 2). Acute Renal Failure Assessment/Plan * Nephrology (Dr. Meyers) on board-->help appreciated * Improved with IVF NS at 75 ml/hr * Off Losartan/HCTZ * Renal Lasix scan (03/14/18): left kidney. Diminished perfusion left kidney compared to right. Left kidney contributes 40% of total renal function. Component of obstructive uropathy. Right kidney, Normal profusion, flow-function , no evidence of obstructive uropathy 3). Bacteremia Assessment/Plan * Salmonella Blood Culture 03/11/18+ * F/u Blood culture (03/16/18): no growth after 24hours X2 * Ceftriaxone 1 gm IV 1x/day * Azithromycin 500 mg IV 1x/day * Repeat Blood Culture 03/16/18: once this is negative at 72 hours then discharge patient 4). Hx Urinary Retention Assessment/Plan * Flomax 0.4 mg PO 1x/day * Proscar 5 mg PO 1x/day * PSA: 1.42 5). Hx HTN Assessment/Plan * Holding Losartan and HCTZ considering the ARF * Blood pressure has been under control: if blood pressure rises then add Norvasc 6). Hx PE Assessment/Plan * Treated in May 2017 * Will need to make sure that he followed up with Hematology 7). Hx Cavernous Hemangioma Liver Assessment/Plan * Diagnosed May 2017 and evaluated by GI at the time with no further workup needed at the time 8). Hx Iron Deficiency * Seen by Hematology in May 2017. Will need to make sure that he followed up with Hematology. * HgB/Hct are stable 9). Left Kidney Hydronephrosis * Renal U/S shows left chronic hydronephrosis but the CT Abdomen/Pelvis did not and showed a stable left parapelvic kidney cyst stable since 2016 * Abdominal Xray (03/11/18): no significant or acute findings to account for/ related to the clinical presentation. * CT Abdomen/pelvis (03/12/18): no radiodense urolithiasis, obstructive uropathy or perinephric reaction bilateral. kidneys appear homogenous. Enlarged prostate gland. Segmental colitis. Stable prominent left renal parapelivic cyst. No obstructive uropathy left kidney. * Renal Lasix scan (03/14/18): left kidney. Diminished perfusion left kidney compared to right. Left kidney contributes 40% of total renal function. * PSA: 1.42 * Patient is on Flomax and Proscar. * Renal Bladder: left hydronephrosis noted 10). Prophylaxis * Heparin 5,000 units SC Q8H * Latanoprost 0.005% 1 drop Bilateral Eyes 1x/day * Tylenol 650 mg PO Q6H PRN Pain/Fever * Lactobacillus 1 tab PO 2x/day
[2018-03-17 07:37] LABS: BASO % 0.3 % (0.0-2.0); EOS # 0.2 K/uL (0.0-0.7); EOS % 3.2 % (0.0-4.0); HEMOGLOBIN 12.6 g/dL (12.0-18.0); LYMPH # 1.6 K/uL (1.0-4.3); LYMPH % 25.9 % (20.0-40.0); MEAN CELL VOLUME 87.5 fL (80.0-94.0); MEAN CORPUSCULAR HGB CONC 34.3 g/dL (33.0-37.0); MEAN PLATELET VOLUME 8.8 fL (7.2-11.7); MONO # 0.6 K/uL (0.0-0.8); MONO % 9.5 % (0.0-10.0); NEUT # 3.8 K/uL (1.8-7.0); NEUT % 61.1 % (50.0-75.0); NRBC % 0.1 % (0.0-2.0); RBC 4.21 Mil/uL (4.40-5.90); RED CELL DISTRIBUTION WIDTH 15.2 % (11.5-14.5); WHITE BLOOD COUNT 6.3 K/uL (4.8-10.8)
[2018-03-17 08:14] LABS: ALB/GLOB RATIO 1.1 (1.0-2.1); ALBUMIN 3.2 g/dL (3.5-5.0); ALT/SGPT 69 U/L (21-72); AST/SGOT 57 U/L (17-59); BLOOD UREA NITROGEN 6 mg/dL (9-20); CALCIUM 8.6 mg/dl (8.6-10.4); GFR AFRICAN-AMERICAN > 60; GFR NON-AFRICAN AMERICAN > 60
[2018-03-17] MEDS: Azithromycin 500 MG in Sodium Chloride 0.9% 250 ML IVPB SCH (09:36)
[2018-03-17] MEDS: Lactobacillus Acidophilus 500 MU Cap PO SCH ×2 (09:37→19:04)
[2018-03-17 10:16] LABS: HEPATITIS B SURFACE AG Negative (NEGATIVE)
[2018-03-17 10:21] LABS: HEPATITIS A IGM NEGATIVE (NEGATIVE); HEPATITIS B CORE AB NEGATIVE (NEGATIVE)
[2018-03-17 10:33] LABS: HEPATITIS C ANTIBODY NEGATIVE (NEGATIVE)
--- NOTE | 2018-03-17 12:19 | CP.PCM.PN ---
Subjective - Date & Time of Evaluation Date of Evaluation: 03/17/18 Time of Evaluation: 09:00 - Subjective Subjective: less diarrhea no fever iv rx for now Objective - Vital Signs/Intake and Output Vital Signs (last 24 hours): Temp Pulse Resp BP Pulse Ox 97.5 F L 74 20 142/89 98 03/17/18 07:00 03/17/18 07:00 03/17/18 07:00 03/17/18 07:00 03/17/18 07:00 - Medications Medications: Current Medications Finasteride (Proscar) 5 mg PO DAILY [facility] Last Admin: 03/17/18 09:37 Dose: 5 mg Heparin Sodium (Porcine) (Heparin) 5,000 units SC Q8 [facility] Last Admin: 03/17/18 05:44 Dose: 5,000 units Ceftriaxone Sodium 1 gm/ (Sodium Chloride) 100 mls @ 100 mls/hr IVPB DAILY [facility] PRN Reason: Protocol Last Admin: 03/17/18 11:47 Dose: 100 mls/hr Azithromycin 500 mg/ Sodium (Chloride) 250 mls @ 250 mls/hr IVPB DAILY [facility] PRN Reason: Protocol Last Admin: 03/17/18 09:36 Dose: 250 mls/hr Lactobacillus Acidophilus (Bacid Acidophilus) 1 cap PO BID [facility] Last Admin: 03/17/18 09:37 Dose: 1 cap Latanoprost (Xalatan Opht) 0.05 ml OU HS [facility] Last Admin: 03/16/18 22:16 Dose: 0.05 ml Metronidazole (Flagyl) 500 mg PO Q8 [facility] PRN Reason: Protocol Stop: 03/20/18 14:00 Last Admin: 03/17/18 05:45 Dose: 500 mg Pantoprazole Sodium (Protonix Inj) 40 mg IVP DAILY [facility] Last Admin: 03/11/18 14:44 Dose: 40 mg Tamsulosin HCl (Flomax) 0.4 mg PO DAILY [facility] Last Admin: 03/17/18 09:37 Dose: 0.4 mg - Labs Labs: 03/17/18 07:28 03/17/18 07:28 PT 14.3 SECONDS (9.7-12.2) H 03/11/18 09:37 INR 1.3 03/11/18 09:37 APTT 28 SECONDS (21-34) 03/11/18 09:37 - Head Exam Head Exam: NORMOCEPHALIC - Eye Exam Eye Exam: PERRL - ENT Exam ENT Exam: Mucous Membranes Dry - Neck Exam Neck Exam: absent: Lymphadenopathy - Respiratory Exam Respiratory Exam: Decreased Breath Sounds - Cardiovascular Exam Cardiovascular Exam: REGULAR RHYTHM - GI/Abdominal Exam GI & Abdominal Exam: Distended - Rectal Exam Rectal Exam: Deferred - Exam Exam: NORMAL INSPECTION Assessment and Plan (1) Bacteremia Status: Acute (2) Acute renal insufficiency Status: Acute (3) Diarrhea Status: Acute (4) Near syncope Status: Acute
[2018-03-17] MEDS: Latanoprost 2.5 ml Opht Soln OU SCH (22:25)
--- NOTE | 2018-03-18 06:31 | CP.PCM.PN ---
Subjective - Date & Time of Evaluation Date of Evaluation: 03/18/18 Time of Evaluation: 06:51 - Subjective Subjective: Nephrology Progress Note for Patricia Mensah PGY3 Patient seen and examined at bedside. I spoke with nursing staff and there were no acute overnight events. Patient is having formed stool. He reports having a mild amount of bilateral lower abdominal pain when having a bowel movement. He denies chest pain, shortness of breath, nausea/vomiting/diarrhea, fever/chills, numbness/tingling, dysuria/hematuria. Objective - Vital Signs/Intake and Output Vital Signs (last 24 hours): Temp Pulse Resp BP Pulse Ox 98 F 81 20 115/73 96 03/18/18 00:00 03/18/18 04:03 03/18/18 00:00 03/18/18 00:00 03/18/18 00:00 Intake and Output: 03/17/18 03/18/18 18:59 06:59 Intake Total 1005 Balance 1005 - Medications Medications: Current Medications Finasteride (Proscar) 5 mg PO DAILY [facility] Last Admin: 03/17/18 09:37 Dose: 5 mg Heparin Sodium (Porcine) (Heparin) 5,000 units SC Q8 [facility] Last Admin: 03/17/18 21:49 Dose: 5,000 units Ceftriaxone Sodium 1 gm/ (Sodium Chloride) 100 mls @ 100 mls/hr IVPB DAILY [facility] PRN Reason: Protocol Last Admin: 03/17/18 11:47 Dose: 100 mls/hr Azithromycin 500 mg/ Sodium (Chloride) 250 mls @ 250 mls/hr IVPB DAILY [facility] PRN Reason: Protocol Last Admin: 03/17/18 09:36 Dose: 250 mls/hr Lactobacillus Acidophilus (Bacid Acidophilus) 1 cap PO BID [facility] Last Admin: 03/17/18 19:04 Dose: 1 cap Latanoprost (Xalatan Opht) 0.05 ml OU HS [facility] Last Admin: 03/17/18 22:25 Dose: Not Given Metronidazole (Flagyl) 500 mg PO Q8 [facility] PRN Reason: Protocol Stop: 03/20/18 14:00 Last Admin: 03/17/18 21:49 Dose: 500 mg Pantoprazole Sodium (Protonix Inj) 40 mg IVP DAILY [facility] Last Admin: 03/11/18 14:44 Dose: 40 mg Tamsulosin HCl (Flomax) 0.4 mg PO DAILY [facility] Last Admin: 03/17/18 09:37 Dose: 0.4 mg - Labs Labs: 03/17/18 07:28 03/17/18 07:28 PT 14.3 SECONDS (9.7-12.2) H 03/11/18 09:37 INR 1.3 03/11/18 09:37 APTT 28 SECONDS (21-34) 03/11/18 09:37 - Constitutional Appears: No Acute Distress - Head Exam Head Exam: ATRAUMATIC, NORMAL INSPECTION, NORMOCEPHALIC - Eye Exam Eye Exam: Normal appearance, PERRL Pupil Exam: NORMAL ACCOMODATION - ENT Exam ENT Exam: Mucous Membranes Moist - Neck Exam Neck Exam: Full ROM - Respiratory Exam Respiratory Exam: Clear to Ausculation Bilateral, NORMAL BREATHING PATTERN. absent: Rales, Rhonchi, Wheezes - Cardiovascular Exam Cardiovascular Exam: REGULAR RHYTHM, +S1, +S2. absent: Gallop, Rubs, Murmur - GI/Abdominal Exam GI & Abdominal Exam: Soft, Normal Bowel Sounds. absent: Rigid, Tenderness, Mass , Rebound - Extremities Exam Extremities Exam: Normal Inspection. absent: Calf Tenderness, Pedal Edema - Neurological Exam Neurological Exam: Alert, Awake, CN II-XII Intact, Oriented x3 - Skin Skin Exam: Dry, Intact, Warm Assessment and Plan - Assessment and Plan (Free Text) Assessment: This is a 77yo males with past medical history of HTN, PE, peptic ulcer disease , BPH, L hydronephrosis who was admitted for 1. Acute renal failure- resolved - most likely secondary to pre-renal azotemia from dehydration from diarrhea and exacerbated by being on ACEI/ARB - Cr at baseline - Avoid nephrotoxic agents (NSAIDs, phosphate enemas) 2. L Kidney Hydronephrosis - chronic - Lasix renal scan showed L ureteral obstruction - Recommend to follow up with Urologist as outpatient for possible pyelogram/ cysto/stent 4. BPH- chronic - Proscar - Flomax 5. HTN - stable - BP is normotensive after fluids dc - Continue to hold anti-hypertensive agents (ACEI/ARB) - Recommend to re-check BP as outpatient and adjust medications with PMD 6. Diarrhea - resolved - + for Giardia - tolerating diet - On antibiotics 7. Bacteremia - one blood culture positive for salmonella D - Repeat cultures negative - on antibiotics Thank you for this consultation. Will sign off. Please re-consult if needed. Case seen, discussed and reviewed with Dr. Meyers. Patricia Knox PGY3
[2018-03-18 07:29] LABS: BASO % 0.4 % (0.0-2.0); EOS # 0.2 K/uL (0.0-0.7); EOS % 3.3 % (0.0-4.0); HEMOGLOBIN 12.1 g/dL (12.0-18.0); MEAN CELL VOLUME 87.1 fL (80.0-94.0); MEAN CORPUSCULAR HGB CONC 34.5 g/dL (33.0-37.0); MEAN PLATELET VOLUME 9.2 fL (7.2-11.7); MONO # 0.6 K/uL (0.0-0.8); MONO % 9.4 % (0.0-10.0); NEUT # 3.6 K/uL (1.8-7.0); NEUT % 55.9 % (50.0-75.0); NRBC % 0.1 % (0.0-2.0); RBC 4.03 Mil/uL (4.40-5.90); RED CELL DISTRIBUTION WIDTH 15.4 % (11.5-14.5); WHITE BLOOD COUNT 6.5 K/uL (4.8-10.8)
--- NOTE | 2018-03-18 07:30 | CP.PCM.PN ---
Subjective - Date & Time of Evaluation Date of Evaluation: 03/18/18 Time of Evaluation: 07:26 - Subjective Subjective: Pt examined at bedside, no acute events overnight. Patient reports he is feeling well, eating, having more formed stools, less frequent in quantity. Patient reports 1 formed BM this morning, and 1 yesterday. Patient denies chest pain, SOB, nausea, vomiting. Objective - Vital Signs/Intake and Output Vital Signs (last 24 hours): Temp Pulse Resp BP Pulse Ox 98 F 81 20 115/73 96 03/18/18 00:00 03/18/18 04:03 03/18/18 00:00 03/18/18 00:00 03/18/18 00:00 - Medications Medications: Current Medications Finasteride (Proscar) 5 mg PO DAILY [facility] Last Admin: 03/17/18 09:37 Dose: 5 mg Heparin Sodium (Porcine) (Heparin) 5,000 units SC Q8 [facility] Last Admin: 03/18/18 06:44 Dose: 5,000 units Ceftriaxone Sodium 1 gm/ (Sodium Chloride) 100 mls @ 100 mls/hr IVPB DAILY [facility] PRN Reason: Protocol Last Admin: 03/17/18 11:47 Dose: 100 mls/hr Azithromycin 500 mg/ Sodium (Chloride) 250 mls @ 250 mls/hr IVPB DAILY [facility] PRN Reason: Protocol Last Admin: 03/17/18 09:36 Dose: 250 mls/hr Lactobacillus Acidophilus (Bacid Acidophilus) 1 cap PO BID [facility] Last Admin: 03/17/18 19:04 Dose: 1 cap Latanoprost (Xalatan Opht) 0.05 ml OU HS [facility] Last Admin: 03/17/18 22:25 Dose: Not Given Metronidazole (Flagyl) 500 mg PO Q8 [facility] PRN Reason: Protocol Stop: 03/20/18 14:00 Last Admin: 03/18/18 06:44 Dose: 500 mg Pantoprazole Sodium (Protonix Inj) 40 mg IVP DAILY [facility] Last Admin: 03/11/18 14:44 Dose: 40 mg Tamsulosin HCl (Flomax) 0.4 mg PO DAILY [facility] Last Admin: 03/17/18 09:37 Dose: 0.4 mg - Labs Labs: 03/17/18 07:28 03/17/18 07:28 PT 14.3 SECONDS (9.7-12.2) H 08/07/18 09:37 INR 1.3 03/11/18 09:37 APTT 28 SECONDS (21-34) 03/11/18 09:37
[2018-03-18 08:18] LABS: ALB/GLOB RATIO 1.1 (1.0-2.1); ALBUMIN 3.2 g/dL (3.5-5.0); ALT/SGPT 65 U/L (21-72); AST/SGOT 43 U/L (17-59); BLOOD UREA NITROGEN 7 mg/dL (9-20); CALCIUM 8.6 mg/dl (8.6-10.4); GFR AFRICAN-AMERICAN > 60; GFR NON-AFRICAN AMERICAN > 60
[2018-03-18 08:24] VITALS: O2SAT 98
[2018-03-18] MEDS ORDERED: Magnesium Sulfate 1 gm in D5W 1 GM/100 ML BAG IVPB ONE (09:29)
[2018-03-18] MEDS: Lactobacillus Acidophilus 500 MU Cap PO SCH (09:53)
[2018-03-18] MEDS ORDERED: Potassium Phosphate 15 MMOLE in Sodium Chloride 0.9% 250 ML IVPB ONE (10:00)
[2018-03-18] MEDS: Azithromycin 500 MG in Sodium Chloride 0.9% 250 ML IVPB SCH (10:05)
[2018-03-18] MEDS ORDERED: Potassium Chloride 20 mEq ER Tab PO ONE (10:58)
--- NOTE | 2018-03-18 14:53 | CP.PCM.DIS ---
Provider - Provider Date of Admission: 03/11/18 11:26 Attending physician: Guadalupe Perez DO Consults: Dr. Mira Sanderson Time Spent in preparation of Discharge (in minutes): 29 Diagnosis - Discharge Diagnosis (1) Diarrhea Status: Acute Comment: Diarrhea secondary to Giardia infection. Patient to continue on Antibiotics as directed. Patient to follow up with Dr. Vizcarra within 1 week of discharge (2) Bacteremia Status: Acute Comment: Salmonella D bacteremia. Patient to continue on antibiotics as directed. Patient advised to follow up with Dr. Vizcarra within 1 week of discharge (3) Acute kidney injury Status: Acute Comment: ARYA likely secondary to diarrhea and home meds. Resolved. Patient to follow up with Dr. Vizcarra within 1 week of discharge (4) Hydronephrosis Status: Chronic Comment: Chronic left sided hydronephrosis. Renal scan indicates obstruction. Patient to follow up outpatient with Dr. Sherrell Sanderson for further eval. Hospital Course - Lab Results Lab Results: Micro Results 03/16/18 07:27 Blood-Venous Blood Culture - Preliminary NO GROWTH AFTER 48 HOURS 03/16/18 07:27 Blood-Venous Blood Culture - Preliminary NO GROWTH AFTER 48 HOURS 03/11/18 12:13 Blood Blood Culture - Final Salmonella Group D 03/11/18 12:13 Blood Gram Stain - Final 03/11/18 12:13 Blood Blood Culture - Final NO GROWTH AFTER 5 DAYS 03/11/18 12:13 Blood Gram Stain - Final TEST NOT PERFORMED 03/11/18 15:00 Stool Stool Culture - Final NO SALMONELLA, SHIGELLA OR CAMPYLOBACTER ISOLATED. 03/11/18 09:41 Urine Urine Culture - Final No Growth (<1,000 CFU/ML) 03/11/18 15:00 Stool Ova and Parasite Concentrate Exam - Final Most Recent Lab Values WBC 6.5 K/uL (4.8-10.8) 03/18/18 07:09 RBC 4.03 Mil/uL (4.40-5.90) L 03/18/18 07:09 Hgb 12.1 g/dL (12.0-18.0) 03/18/18 07:09 Hct 35.1 % (35.0-51.0) 03/18/18 07:09 MCV 87.1 fL (80.0-94.0) 03/18/18 07:09 MCH 30.0 pg (27.0-31.0) 03/18/18 07:09 MCHC 34.5 g/dL (33.0-37.0) 03/18/18 07:09 RDW 15.4 % (11.5-14.5) H 03/18/18 07:09 Plt Count 314 K/uL (130-400) 03/18/18 07:09 MPV 9.2 fL (7.2-11.7) 03/18/18 07:09 Neut % (Auto) 55.9 % (50.0-75.0) 03/18/18 07:09 Lymph % (Auto) 31.0 % (20.0-40.0) 03/18/18 07:09 [place] % (Auto) 9.4 % (0.0-10.0) 03/18/18 07:09 Eos % (Auto) 3.3 % (0.0-4.0) 03/18/18 07:09 Baso % (Auto) 0.4 % (0.0-2.0) 03/18/18 07:09 Neut # (Auto) 3.6 K/uL (1.8-7.0) 03/18/18 07:09 Lymph # (Auto) 2.0 K/uL (1.0-4.3) 03/18/18 07:09 [place] # (Auto) 0.6 K/uL (0.0-0.8) 03/18/18 07:09 Eos # (Auto) 0.2 K/uL (0.0-0.7) 03/18/18 07:09 Baso # (Auto) 0.0 K/uL (0.0-0.2) 03/18/18 07:09 Neutrophils % (Manual) 82 % (50-75) H 03/13/18 08:28 Band Neutrophils % 7 % (0-2) H 03/12/18 08:34 Lymphocytes % (Manual) 9 % (20-40) L 03/13/18 08:28 Monocytes % (Manual) 7 % (0-10) 03/13/18 08:28 Eosinophils % (Manual) 2 % (0-4) 03/13/18 08:28 Platelet Estimate Normal (NORMAL) 03/13/18 08:28 RBC Morphology Normal 03/13/18 08:28 Anisocytosis (manual) Slight 03/12/18 08:34 PT 14.3 SECONDS (9.7-12.2) H 03/11/18 09:37 INR 1.3 03/11/18 09:37 APTT 28 SECONDS (21-34) 03/11/18 09:37 pO2 30 mm/Hg (30-55) 03/11/18 09:33 VBG pH 7.35 (7.32-7.43) 03/11/18 09:33 VBG pCO2 37 mmHg (40-60) L 03/11/18 09:33 VBG HCO3 20.1 mmol/L 03/11/18 09:33 VBG Total CO2 21.5 mmol/L (22-28) L 03/11/18 09:33 VBG O2 Sat (Calc) 59.5 % (40-65) 03/11/18 09:33 VBG Base Excess -4.7 mmol/L (0.0-2.0) L 03/11/18 09:33 VBG Potassium 4.1 mmol/L (3.6-5.2) 03/11/18 09:33 Sodium 132.0 mmol/l (132-148) 03/11/18 09:33 Chloride 101.0 mmol/L (98-107) 03/11/18 09:33 Glucose 130 mg/dl (75-110) H 03/11/18 09:33 Lactate 1.3 mmol/L (0.7-2.1) 03/11/18 09:33 Sodium 143 mmol/L (132-148) 03/18/18 07:09 Potassium 3.5 mmol/L (3.6-5.2) L 03/18/18 07:09 Chloride 107 mmol/L (98-107) 03/18/18 07:09 Carbon Dioxide 27 mmol/L (22-30) 03/18/18 07:09 Anion Gap 12 (10-20) 03/18/18 07:09 BUN 7 mg/dL (9-20) L 03/18/18 07:09 Creatinine 0.9 mg/dL (0.8-1.5) 03/18/18 07:09 Est GFR ( Amer) > 60 03/18/18 07:09 Est GFR (Non-Af Amer) > 60 03/18/18 07:09 Random Glucose 128 mg/dL (75-110) H 03/18/18 07:09 Hemoglobin A1c 6.5 % (4.2-6.5) 03/12/18 08:34 Calcium 8.6 mg/dl (8.6-10.4) 03/18/18 07:09 Phosphorus 2.4 mg/dL (2.5-4.5) L 03/18/18 07:09 Magnesium 1.4 mg/dL (1.6-2.3) L 03/18/18 07:09 Total Bilirubin 0.4 mg/dL (0.2-1.3) 03/18/18 07:09 AST 43 U/L (17-59) 03/18/18 07:09 ALT 65 U/L (21-72) 03/18/18 07:09 Alkaline Phosphatase 70 U/L (38-126) 03/18/18 07:09 Total Protein 6.0 g/dL (6.3-8.3) L 03/18/18 07:09 Albumin 3.2 g/dL (3.5-5.0) L 03/18/18 07:09 Globulin 2.8 gm/dL (2.2-3.9) 03/18/18 07:09 Albumin/Globulin Ratio 1.1 (1.0-2.1) 03/18/18 07:09 Prostate Specific Ag 1.42 ng/mL (0.00-4.0) 03/12/18 08:34 Venous Blood Potassium 4.1 mmol/L (3.6-5.2) 03/11/18 09:33 Urine Color [place] (YELLOW) 03/11/18 09:41 Urine Clarity Hazy (Clear) 03/11/18 09:41 Urine pH 5.0 (5.0-8.0) 03/11/18 09:41 Ur Specific [place] 1.016 (1.003-1.030) 03/11/18 09:41 Urine Protein 2+ mg/dL (NEGATIVE) H 03/11/18 09:41 Urine Glucose (UA) Normal mg/dL (Normal) 03/11/18 09:41 Urine Ketones Negative mg/dL (NEGATIVE) 03/11/18 09:41 Urine Blood 1+ (NEGATIVE) H 03/11/18 09:41 Urine Nitrate Negative (NEGATIVE) 03/11/18 09:41 Urine Bilirubin Negative (NEGATIVE) 03/11/18 09:41 Urine Urobilinogen Normal mg/dL (0.2-1.0) 08 09:41 Ur Leukocyte Esterase Trace Joel/uL (Negative) 03/11/18 09:41 Urine WBC (Auto) 20 /hpf (0-5) H 03/11/18 09:41 Urine RBC (Auto) 3 /hpf (0-3) 03/11/18 09:41 Urine WBC Clumps (Auto) Occ /hpf (NONE) H 03/11/18 09:41 Ur Squamous Epith Cells 2 /hpf (0-5) 03/11/18 09:41 Urine Bacteria Rare (<OCC) 03/11/18 09:41 Hyaline Casts 3-5 /lpf (0-2) H 03/11/18 09:41 Ur Random Creatinine 177.3 mg/dL 03/11/18 23:01 U Random Total Protein 627 mg/g creat (22-128) H 03/11/18 23:01 Ur Random Sodium 58 mmol/L 03/11/18 23:01 Urine Creatinine 202 mg/dL (20-370) 03/11/18 23:01 Urine Microalbumin 6.6 mg/dL 03/11/18 23:01 Microalb/Creat Ratio 32 (<30) H 03/11/18 23:01 E. histolytica Antigen Not detected 03/11/18 14:12 Giardia Antigen Detected (Not Detected) H 03/12/18 06:56 Hepatitis A IgM Ab Negative (NEGATIVE) 03/16/18 07:27 Hep Bs Antigen Negative (NEGATIVE) 03/16/18 07:27 Hep B Core IgM Ab Negative (NEGATIVE) 03/16/18 07:27 Hepatitis C Antibody Negative (NEGATIVE) 03/16/18 07:27 HIV 1&2 Antibody Screen Negative (NEGATIVE) 03/15/18 16:30 - Hospital Course Hospital Course: Patient evaluated and treated at [facility] from 03/11/14-03/18/14. Patients complaints of dizziness/fall/loss of balance were evaluated in ED with EKG, and head CT, all found to be negative for acute pathology. CBC, CMP, abdominal x- ray and abd/pelvis CT used to evaluate complaints of diarrhea. Blood cultures and stool cultures taken, stool tested for ova and parasites and antigens. Patient started on IVF and IV antibiotics. ID consulted, Dr. Price. ARYA evaluated by dehairer Dr. Meyers. Offending medications discontinued and patient rehydrated with IVF. Hydronephrosis noted. Renal scan w/ medication showed reduced function of left kidney w/ possible obstruction. Urologist Dr. Sanderson consulted, patient to follow up within 2 weeks of discharge to evaluate on an outpatient basis. Patient is to return to his PMD Dr. Vizcarra for evaluation within 1 wk of discharge. Patient should review antihypertensive meds. Patient instructed to continue on Flagyl 500mg Q8 for 5 days and Cipro 500mg BID for 5 days. Patient instructed to return to ED with any worsening of symptoms. HPI on admission: "77 year old male W/ PMHx of PE(04/20), hydronephrosis(04/21), HTN, presents to ED w/ complaints of headache, dizziness and diarrhea x5 days, and is s/p fall 2/ 2 loss of balance 3 days ago. Pt had recently been traveling to [facility] and only returned to [place] 03/10. Pt admits to 3-6 episodes of non bloody , watery diarrhea over the past 5 days, not associated w/ food. Pt reports he has been trying to stay hydrated and eat, but early satiety prevents him from too much intake. Pt reports he has never had this presentation before. He denies chest pain, SOB, nausea, vomiting." Discharge Exam - Head Exam Head Exam: ATRAUMATIC, NORMAL INSPECTION, NORMOCEPHALIC - Eye Exam Eye Exam: EOMI Pupil Exam: NORMAL ACCOMODATION - ENT Exam ENT Exam: Mucous Membranes Moist - Neck Exam Neck exam: Normal Inspection - Respiratory Exam Respiratory Exam: NORMAL BREATHING PATTERN, UNREMARKABLE. absent: Rhonchi, Wheezes, Respiratory Distress - Cardiovascular Exam Cardiovascular Exam: REGULAR RHYTHM, +S1, +S2. absent: Tachycardia, Diastolic murmur, Systolic Murmur - GI/Abdominal Exam GI & Abdominal Exam: Normal Bowel Sounds, Soft, Unremarkable. absent: Distended , Firm, Guarding, Rebound, Tenderness - Extremities Exam Extremities exam: normal capillary refill, normal inspection, pedal pulses present - Back Exam Back exam: NORMAL INSPECTION. absent: CVA tenderness (L), CVA tenderness (R) - Neurological Exam Neurological exam: Alert, CN II-XII Intact, Normal Gait, Oriented x3 - Psychiatric Exam Psychiatric exam: Normal Affect, Normal Mood - Skin Skin Exam: Intact, Normal Color, Warm Discharge Plan - Discharge Medications Prescriptions: Brimonidine Tartrate/Timolol [Combigan 0.2%-0.5% Eye Drops] 5 ml OU BID #1 bottle Ciprofloxacin HCl [Cipro] 500 mg PO BID #10 tablet Finasteride [Proscar] 5 mg PO DAILY #30 tab Latanoprost 0.005% Opht [Xalatan Opht] 1 drp OU HS #1 bottle Metronidazole [Flagyl] 500 mg PO Q8 #15 tablet Niacin [Niacin ER] 500 mg PO DAILY #30 tab.er.24h Pantoprazole [Protonix EC Tab] 40 mg PO DAILY #30 ect Tamsulosin [Flomax] 0.4 mg PO DAILY #30 cap - Follow Up Plan Condition: SERIOUS Disposition: HOME/ ROUTINE Instructions: Ciprofloxacin (Systemic), Heart Healthy Diet, Acute Kidney Failure (DC), Rotavirus Infection (DC), Sepsis (DC), Nutrition Tips for Relief of Diarrhea (DC) Additional Instructions: Patient is stable for discharge to home per Dr. Perez. Patient is to continue with home meds in addition to continuing antibiotics Flagyll 500mg Q8 and Cipro 500mg BID. Patient is to take all medications as prescribed. Patient is to follow up with primary doctor Dr. Vizcarra within 1 week of discharge. Patient is also advised to follow up with urology, Dr. Sherrell Sanderson within 2 weeks of discharge for further evaluation of chronic hydronephrosis and possible obstruction. Patient is advised to return to the ED with worsening of symptoms. Referrals: Robert Vizcarra MD [Staff Provider] - Sherrell Sanderson MD [Staff Provider] -
[2018-03-18 16:05] VITALS: BP 147/86; PULSE 80; TEMP 98.2
[2018-03-19] MEDS ORDERED: Potassium Chloride 20 mEq ER Tab PO ONE (10:56)
== END 2018-03-18 17:44 | disposition home or self-care (01) | DRG 371 ==
LOC: C.ER 08:18 → C.9E 11:26 → C.6T 13:59
PROVIDERS: ADMIT Hospitalist; ATTEND Hospitalist
DX: A07.1 Giardiasis [lambliasis] (principal); A02.1 Salmonella sepsis; N17.9 Acute kidney failure, unspecified; N13.6 Pyonephrosis; E87.2 Acidosis; E86.0 Dehydration; E87.6 Hypokalemia; R33.8 Other retention of urine; N40.1 Benign prostatic hyperplasia with lower urinary tract symptoms; I10 Essential (primary) hypertension; N28.1 Cyst of kidney, acquired; Z87.11 Personal history of peptic ulcer disease; Z86.718 Personal history of other venous thrombosis and embolism; Z86.711 Personal history of pulmonary embolism; Z87.19 Personal history of other diseases of the digestive system; Z87.891 Personal history of nicotine dependence

== ENCOUNTER 2018-04-20 11:03 | Emergency (ER) | payer MEDICARE, OTHER ==
[2018-04-20 11:04] VITALS: BMI 29.9
[2018-04-20 11:15] VITALS: TEMP 97.9; O2SAT 95
--- NOTE | 2018-04-20 11:31 | C.PDOC ---
History Of Present Illness 77 yo male come in for evaluation of B/L flank pain, diffuse lower back pain gradually developed f past few days. Since yesterday " feel hot and my urine burn to urinate". Otherwise, pt denies high fever, headache, dizziness, CP, SOB , dyspnea, diaphoresis, palpitation, abd. pain, V/D, hematuria, saddle anesthesia, incontinence, denies B/L legs weakness, sensory or vascular deficits. PMD: DR. Vizcarra PMHx:PE (04/21), renal cysts, hydronephrosis(04/21), gastritis, HTN, BPH, urinary retention 2/2 BPH, hepatic cavernous hemangioma PSHx: colonoscopy/endoscopy 2016 All: NKA Fam Hx: Denies family hx of heart dz, cancers, HTN, DM Soc Hx: Denies alcohol/tobacco/drug use Time Seen by Provider: 04/20/18 11:24 Chief Complaint (Nursing): Back Pain History Per: Patient Past Medical History Reviewed: Historical Data, Nursing Documentation, Vital Signs Vital Signs: Last Vital Signs Temp 97.9 F 04/20/18 11:08 Pulse 83 04/20/18 11:08 Resp 18 04/20/18 11:08 BP 142/93 H 04/20/18 11:08 Pulse Ox 95 04/20/18 11:43 - Medical History PMH: Anemia, Back Problems (NECK PAIN), Diverticulitis (diverticulosis by exam 2015), Gastritis (H pylori + 2015), HTN, Pulmonary Embolism (sent home on pradaxa) Denies: Crohn's Disease, Gall Bladder Disease, HIV, Pancreatitis, Chronic Kidney Disease - [facility] Procedures EXCISION OF RECTUM, ENDO, DIAGN (04/30/16) EXCISION OF STOMACH, ENDO, DIAGN (04/30/16) Family History: States: Unknown Family Hx - Social History Hx Tobacco Use: No Hx Alcohol Use: No Hx Substance Use: No - Immunization History Hx Tetanus Toxoid Vaccination: No Hx Influenza Vaccination: No Hx Pneumococcal Vaccination: No Review Of Systems Except As Marked, All Systems Reviewed And Found Negative. Constitutional: Positive for: Chills. Negative for: Fever ENT: Negative for: Throat Pain Cardiovascular: Negative for: Chest Pain, Palpitations Respiratory: Negative for: Cough, Shortness of Breath, Wheezing Gastrointestinal: Negative for: Nausea, Vomiting, Abdominal Pain, Diarrhea Genitourinary: Positive for: Dysuria. Negative for: Frequency, Incontinence Musculoskeletal: Positive for: Back Pain Skin: Negative for: Rash Neurological: Negative for: Weakness, Numbness, Altered Mental Status Physical Exam - Physical Exam Appears: Well, Non-toxic, No Acute Distress Skin: Normal Color, Warm, Dry, No Rash Head: Normacephalic Eye(s): bilateral: PERRL Nose: No Flaring, No Discharge Throat: No Erythema, No Drooling Neck: Supple Cardiovascular: Rhythm Regular, No Murmur, No JVD Respiratory: No Decreased Breath Sounds, No Accessory Muscle Use, No Stridor, No Wheezing Gastrointestinal/Abdominal: Soft, Tenderness (mild suprapubic), No Distention, No Rebound Back: No CVA Tenderness Extremity: Normal ROM, No Deformity, No Swelling Neurological/Psych: Oriented x3, Normal Speech ED Course And Treatment - Laboratory Results Result Diagrams: 04/20/18 11:55 04/20/18 11:55 Lab Interpretation: Normal O2 Sat by Pulse Oximetry: 95 Pulse Ox Interpretation: Normal Progress Note: On re-eval, pt reports modimproveemnt in pain. Afebrile, hemodynamicaly stable. Non-toxic. Ambulatory in ED. Neck: Supple, (-) midline tenderness. Lungs: CTA B/L, BS equal B/L. CVS: (+)S1S2, reg. Abd: benign, (-) guarding, (-) rebound. Back: (-) CVA tenderness. Neurologicaly intact. Blood work review and appears baseline. EKG- normal. UA- normal study. PT has clinical findings c/w back pain, nos. Pt advised and ref. to F/ u with PMD in 2-3 days for re-eval. return to ED if any worsening or new changes. Disposition Counseled Patient/Family Regarding: Studies Performed, Diagnosis, Need For Followup, Rx Given - Disposition Referrals: Robert Vizcarra MD [Staff Provider] - Disposition: HOME/ ROUTINE Disposition Time: 13:20 Condition: STABLE Additional Instructions: Light duty to lower back, bed rest, avoid physical activity Take pain medication as prescribed Follow up with PMD in 1-2 days for re-evaluation. return to ED if any worsening or new changes. Prescriptions: Gabapentin [Neurontin] 300 mg PO Q12 #14 cap traMADol [Ultram] 50 mg PO TID #7 tab Instructions: Low Back Pain (DC), Radiculopathy Forms: [email or web address] (Tuvaluan) Print Language: AZERI - Clinical Impression Clinical Impression: Low back strain, Lumbar radiculopathy
[2018-04-20] MEDS ORDERED: Sodium Chloride 0.9% 1,000 ML IV ONE (11:38)
[2018-04-20 12:01] LABS: BASO % 0.1 % (0.0-2.0); EOS # 0.1 K/uL (0.0-0.7); EOS % 1.4 % (0.0-4.0); LYMPH # 1.3 K/uL (1.0-4.3); LYMPH % 22.9 % (20.0-40.0); MEAN CORPUSCULAR HEMOGLOBIN 30.5 pg (27.0-31.0); MEAN CORPUSCULAR HGB CONC 33.9 g/dL (33.0-37.0); MEAN PLATELET VOLUME 9.3 fL (7.2-11.7); MONO # 0.6 K/uL (0.0-0.8); MONO % 10.9 % (0.0-10.0); NEUT # 3.6 K/uL (1.8-7.0); NEUT % 64.7 % (50.0-75.0); NRBC % 0.1 % (0.0-2.0); RBC 4.58 Mil/uL (4.40-5.90); RED CELL DISTRIBUTION WIDTH 17.1 % (11.5-14.5); WHITE BLOOD COUNT 5.5 K/uL (4.8-10.8)
[2018-04-20 12:05] LABS: MEAN CELL VOLUME 89.8 fL (80.0-94.0)
[2018-04-20 12:09] LABS: INR 1.2; PROTHROMBIN TIME 12.9 SECONDS (9.7-12.2)
[2018-04-20 12:16] LABS: ALB/GLOB RATIO 1.2 (1.0-2.1); ALT/SGPT 28 U/L (21-72); AST/SGOT 22 U/L (17-59); BLOOD UREA NITROGEN 11 mg/dL (9-20); CALCIUM 9.3 mg/dl (8.6-10.4); GFR NON-AFRICAN AMERICAN > 60; LIPASE 56 U/L (23-300)
[2018-04-20 12:25] LABS: URINE BILIRUBIN NEGATIVE (NEGATIVE); URINE BLOOD NEGATIVE (NEGATIVE); URINE CLARITY Clear (Clear); URINE COLOR Yellow (YELLOW); URINE GLUCOSE (UA) NORMAL (Normal); URINE LEUKOCYTE ESTERASE NEG Leu/uL (Negative); URINE PROTEIN NEGATIVE (NEGATIVE); URINE UROBILINOGEN NORMAL mg/dL (0.2-1.0)
[2018-04-20 14:05] VITALS: BP 134/70; PULSE 70; RESP 20
== END 2018-04-20 14:04 | disposition home or self-care (01) ==
LOC: C.ER 11:03
DX: S39.012A Strain of muscle, fascia and tendon of lower back, initial encounter (principal); X58.XXXA Exposure to other specified factors, initial encounter; M54.16 Radiculopathy, lumbar region
CPT/HCPCS: 80053; 81001; 83690; 85025; 85610; 85730; 87040; 87086; 96361; 96374; 99284; J1885; J7030

== ENCOUNTER 2018-04-27 09:13 | Emergency (ER) | payer MEDICARE, OTHER ==
[2018-04-27 09:13] VITALS: BMI 29.9
[2018-04-27 09:38] VITALS: RESP 18
--- NOTE | 2018-04-27 10:40 | RAD ---
Date of service: 04/27/2018 PROCEDURE: Radiographs of the Chest and Left Ribs. HISTORY: r/o fx COMPARISON: None available. TECHNIQUE: Frontal radiograph of the chest and multiple oblique radiographs of the left ribs were obtained. FINDINGS: LEFT RIBS: No acute fracture or focal lesion visualized. LUNGS: The lungs are well inflated and clear. There is biapical pleural thickening. PLEURA: No pneumothorax or pleural fluid. CARDIOVASCULAR: Normal sized heart. No pulmonary vascular congestion. OTHER FINDINGS: None. IMPRESSION: No acute rib fracture. Clear lungs.
[2018-04-27 11:09] VITALS: BP 139/90; PULSE 69; TEMP 97.5; O2SAT 100
--- NOTE | 2018-04-27 14:01 | C.PDOC ---
History Of Present Illness 77 year old male presents to the emergency department with complaints of left upper back pain for three weeks. Patient states that he was taking OTC medications with some relief. He denies fall, direct trauma to the area, chest pain, shortness of breath, and cough. Time Seen by Provider: 04/27/18 09:22 Chief Complaint (Nursing): Back Pain History Per: Patient History/Exam Limitations: no limitations Onset/Duration Of Symptoms: Other (three weeks) Quality Of Discomfort: "Pain" Past Medical History Reviewed: Historical Data, Nursing Documentation, Vital Signs Vital Signs: Last Vital Signs Temp 97.5 F L 04/27/18 11:08 Pulse 69 04/27/18 11:08 Resp 18 04/27/18 11:08 BP 139/90 04/27/18 11:08 Pulse Ox 100 04/27/18 14:09 - Medical History PMH: Anemia, Back Problems (NECK PAIN), Diverticulitis (diverticulosis by exam 2015), Gastritis (H pylori + 2015), HTN, Pulmonary Embolism (sent home on pradaxa) Denies: Crohn's Disease, Gall Bladder Disease, HIV, Pancreatitis, Chronic Kidney Disease Surgical History: No Surg Hx - [facility] Procedures EXCISION OF RECTUM, ENDO, DIAGN (04/30/16) EXCISION OF STOMACH, ENDO, DIAGN (04/30/16) Family History: States: No Known Family Hx - Social History Hx Tobacco Use: No Hx Alcohol Use: No Hx Substance Use: No - Immunization History Hx Tetanus Toxoid Vaccination: No Hx Influenza Vaccination: No Hx Pneumococcal Vaccination: No Review Of Systems Except As Marked, All Systems Reviewed And Found Negative. Cardiovascular: Negative for: Chest Pain Respiratory: Negative for: Cough, Shortness of Breath Musculoskeletal: Positive for: Back Pain Physical Exam - Physical Exam Appears: Non-toxic, No Acute Distress Skin: Warm, Dry Head: Atraumatic, Normacephalic Eye(s): bilateral: Normal Inspection Neck: Normal, No Midline Cervical Tenderness, No Paracervical Tenderness, Supple Chest: Symmetrical, No Tenderness Cardiovascular: Rhythm Regular, No Murmur Respiratory: Normal Breath Sounds, No Rales, No Rhonchi, No Wheezing Back: Other (hypertonicity of the left trapezius) Extremity: Normal ROM (all extremities) Neurological/Psych: Oriented x3, Normal Speech, Normal Cognition ED Course And Treatment O2 Sat by Pulse Oximetry: 100 (RA) Pulse Ox Interpretation: Normal - Other Rad XR Ribs X-Ray: Viewed By Me, Read By Radiologist Interpretation: IMPRESSION: No acute rib fracture. Clear lungs. Progress Note: Plan: XR Left Ribs and PA Chest. Motrin 600mg PO Disposition - Disposition Referrals: Clyde Persaud, [Non-Staff] - Disposition: HOME/ ROUTINE Disposition Time: 10:40 Condition: GOOD Additional Instructions: CATIE ABDUL, thank you for letting us take care of you today. Your provider was Taj Jurado DO and you were treated for BACK PAIN. The emergency medical care you received today was directed at your acute symptoms. If you were prescribed any medication, please fill it and take as directed. It may take several days for your symptoms to resolve. Return to the Emergency Department if your symptoms worsen, do not improve, or if you have any other problems. Please contact your doctor or call one of the physicians/clinics you have been referred to that are listed on the Patient Visit Information form that is included in your discharge packet. Bring any paperwork you were given at discharge with you along with any medications you are taking to your follow up visit. Our treatment cannot replace ongoing medical care by a primary care provider outside of the emergency department. Thank you for allowing the [facility] team to be part of your care today. Follow up with your primary care doctor in 2-3 days for re-evaluation and further management. CATIE ABDUL, uzair por dejarnos atenderlo hoy. Lane proveedor fue Taj Jurado DO y usted recibi tratamiento para el [place]OLOR DE ESPALDA. La atencin m dica de emergencia que recibi hoy estaba dirigida a cherise sntomas agudos. Si le prescribieron algn medicamento, llnelo y tome segn las indicaciones. Cherise s ntomas pueden tardar varios rocha en resolverse. Regrese al Departamento de Emergencia si cherise sntomas empeoran, no mejoran o si tiene algn otro problema. Comunquese con lane mdico o llame a elias de los mdicos / clnicas a los que kaufman sido referido que figura en el formulario de Informacin de visita del paciente que se incluye en lane paquete de xavier. Traiga todos los documentos que recibi al momento del xavier junto con los medicamentos que est tomando en lane visita de seguimiento. Nuestro tratamiento no puede reemplazar la atencin mdica en curso por un proveedor de atencin primaria fuera del departamento de emergencia. Uzair por permitir que el equipo de [facility] sea parte de lane cuidado hoy. Temo un seguimiento con lane mdico de atencin primaria en 2-3 rocha para rachel nueva evaluacin y administracin adicional. Prescriptions: Cyclobenzaprine [Cyclobenzaprine HCl] 10 mg PO Q8 PRN #20 tab PRN Reason: Muscle Spasm Instructions: Muscle and Bone Pain (DC) Forms: Gen Discharge Inst Ecuadorean, [employer] (Ecuadorean) Print Language: CROATIAN - Clinical Impression Clinical Impression: Thoracic back sprain - Scribe Statement The provider has reviewed the documentation as recorded by the Scribe (Wily Fabian) Provider Attestation: All medical record entries made by the Scribe were at my direction and personally dictated by me. I have reviewed the chart and agree that the record accurately reflects my personal performance of the history, physical exam, medical decision making, and the department course for this patient. I have also personally directed, reviewed, and agree with the discharge instructions and disposition.
== END 2018-04-27 11:08 | disposition home or self-care (01) ==
LOC: C.ER 09:13
DX: S23.3XXA Sprain of ligaments of thoracic spine, initial encounter (principal); X58.XXXA Exposure to other specified factors, initial encounter

== ENCOUNTER 2018-09-22 08:23 | Outpatient (CLI) | payer MEDICARE, MEDICAID | END 2018-09-22 08:24 | disposition home or self-care (01) | LOC: C.CTH 08:23 | DX: R10.9 Unspecified abdominal pain (principal); R16.0 Hepatomegaly, not elsewhere classified ==

== ENCOUNTER 2018-10-13 18:07 | Emergency (ER) | payer MEDICARE, MEDICAID ==
[2018-10-13 18:28] VITALS: BMI 30.4
[2018-10-13] MEDS ORDERED: Sodium Chloride 0.9% 1,000 ML IV ONE (19:29)
--- NOTE | 2018-10-13 19:29 | C.PDOC ---
History Of Present Illness Patient is a78 year old male who presents to the ED c/o intermittent fever for the past week. Patient denies any CP, SOB, nausea or vomiting. Time Seen by Provider: 10/13/18 19:29 Chief Complaint (Nursing): Fever History Per: Patient History/Exam Limitations: no limitations Onset/Duration Of Symptoms: Days (one week ) Associated Symptoms: Fever. denies: Nausea, Vomiting Recent travel outside of the [place]: No Additional History Per: Patient Past Medical History Reviewed: Historical Data, Nursing Documentation, Vital Signs Vital Signs: Last Vital Signs Temp 98.3 F 10/13/18 18:30 Pulse 102 H 10/13/18 18:30 Resp 18 10/13/18 18:30 BP 105/69 10/13/18 18:30 Pulse Ox 97 10/13/18 18:30 - Medical History PMH: Anemia, Back Problems (NECK PAIN), Diverticulitis (diverticulosis by exam 2015), Gastritis (H pylori + 2015), HTN, Pulmonary Embolism (sent home on isabel xa) Denies: Crohn's Disease, Gall Bladder Disease, HIV, Pancreatitis, Chronic Kidney Disease Surgical History: No Surg Hx - [facility] Procedures EXCISION OF RECTUM, ENDO, DIAGN (04/30/16) EXCISION OF STOMACH, ENDO, DIAGN (04/30/16) Family History: States: No Known Family Hx - Social History Hx Tobacco Use: No Hx Alcohol Use: No Hx Substance Use: No - Immunization History Hx Tetanus Toxoid Vaccination: No Hx Influenza Vaccination: No Hx Pneumococcal Vaccination: No Review Of Systems Constitutional: Positive for: Fever (intermittent ) Cardiovascular: Negative for: Chest Pain Respiratory: Negative for: Shortness of Breath Gastrointestinal: Negative for: Nausea, Vomiting Physical Exam - Physical Exam Appears: Non-toxic, No Acute Distress, Other (speaking full sentences) Skin: Warm, Dry Head: Normacephalic Eye(s): bilateral: Normal Inspection Oral Mucosa: Moist, Other (small fever blisters) Lips: Other (fever blisters) Throat: No Erythema, No Exudate Neck: Trachea Midline, Supple Chest: Symmetrical Cardiovascular: Rhythm Regular Respiratory: No Rales, No Rhonchi, No Wheezing Gastrointestinal/Abdominal: Soft, No Tenderness, No Distention, No Guarding, No Rebound, Hernia (small umbilical) Back: No CVA Tenderness Extremity: No Tenderness Extremity: Bilateral: Atraumatic Neurological/Psych: Oriented x3 Gait: Steady ED Course And Treatment - Laboratory Results Result Diagrams: 10/13/18 20:04 10/13/18 20:04 ECG: Interpreted By Me, Viewed By Me ECG Rhythm: Sinus Rhythm (84), Nonspecific Changes O2 Sat by Pulse Oximetry: 97 (on RA) Pulse Ox Interpretation: Normal - Radiology CXR: Interpreted by Me, Viewed By Me CXR Interpretation: No: Infiltrates, Fracture, Pnemothorax Progress Note: Plan: VBG. EKG. Labs. CXR. Blood Culture. Urine Culture. Serology Influenza. Urinaylsis. IV Fluids Reevaluation Time: 22:49 Reassessment Condition: Improved Disposition Counseled Patient/Family Regarding: Studies Performed, Diagnosis, Need For Followup - Disposition Referrals: Robert Vizcarra MD [Staff Provider] - Disposition: HOME/ ROUTINE Disposition Time: 19:29 Condition: FAIR Additional Instructions: Por favor regrese si los sntomas recurren. Instructions: Fever, Adult (DC) Forms: [employer] (Belarusian) Print Language: CZECH - Clinical Impression Clinical Impression: Fever - Scribe Statement The provider has reviewed the documentation as recorded by the Scribe Queenie Bynum All medical record entries made by the Scribe were at my direction and personally dictated by me. I have reviewed the chart and agree that the record accurately reflects my personal performance of the history, physical exam, medical decision making, and the department course for this patient. I have also personally directed, reviewed, and agree with the discharge instructions and disposition.
[2018-10-13 20:05] LABS: VENOUS BLOOD GAS BASE EXCESS -4.5 mmol/L (0.0-2.0); VENOUS BLOOD GAS PCO2 31 mmHg (40-60); VENOUS BLOOD GAS PO2 49 mm/Hg (30-55)
[2018-10-13 20:10] LABS: BASO % 0.2 % (0.0-2.0); EOS # 0.2 K/uL (0.0-0.7); EOS % 1.7 % (0.0-4.0); HEMOGLOBIN 13.9 g/dL (12.0-18.0); LYMPH # 1.8 K/uL (1.0-4.3); LYMPH % 18.7 % (20.0-40.0); MEAN CELL VOLUME 83.7 fL (80.0-94.0); MEAN CORPUSCULAR HEMOGLOBIN 27.1 pg (27.0-31.0); MEAN CORPUSCULAR HGB CONC 32.3 g/dL (33.0-37.0); MEAN PLATELET VOLUME 8.6 fL (7.2-11.7); MONO # 0.9 K/uL (0.0-0.8); MONO % 9.5 % (0.0-10.0); NEUT # 6.6 K/uL (1.8-7.0); NEUT % 69.9 % (50.0-75.0); RBC 5.12 Mil/uL (4.40-5.90); WHITE BLOOD COUNT 9.5 K/uL (4.8-10.8)
[2018-10-13 20:11] LABS: URINE BILIRUBIN NEGATIVE (NEGATIVE); URINE BLOOD NEGATIVE (NEGATIVE); URINE CLARITY Clear (Clear); URINE COLOR Yellow (YELLOW); URINE GLUCOSE (UA) NORMAL (Normal); URINE LEUKOCYTE ESTERASE NEG Leu/uL (Negative); URINE PROTEIN NEGATIVE (NEGATIVE); URINE UROBILINOGEN NORMAL mg/dL (0.2-1.0)
[2018-10-13 20:22] LABS: ALB/GLOB RATIO 1.1 (1.0-2.1); ALT/SGPT 78 U/L (21-72); AST/SGOT 49 U/L (17-59); BLOOD UREA NITROGEN 14 mg/dL (9-20); GFR NON-AFRICAN AMERICAN > 60
[2018-10-13 20:25] LABS: INR 1.3; PROTHROMBIN TIME 14.2 SECONDS (9.7-12.2)
[2018-10-13] MEDS ORDERED: Sodium Chloride 0.9% 1,000 ML ONE (20:29)
[2018-10-13 23:37] VITALS: BP 115/79; PULSE 76; RESP 18; TEMP 98.1; O2SAT 99
--- NOTE | 2018-10-14 09:58 | RAD ---
Date of service: 10/13/2018 HISTORY: Shortness of breath COMPARISON: 04/27/2018 FINDINGS: LUNGS: Venous congestion. Patchy increased markings at the left lung base. PLEURA: Small left pleural effusion. CARDIOVASCULAR: Aortic atherosclerotic calcification present. Cardiomegaly. Venous congestion. OSSEOUS STRUCTURES: Degenerative changes the spine and shoulders. VISUALIZED UPPER ABDOMEN: Normal. OTHER FINDINGS: None. IMPRESSION: Venous congestion. Patchy increased markings at the left lung base. Small left pleural effusion.
--- NOTE | 2018-10-14 12:46 | CARD ---
APPROVED REPORT Date of service: 10/13/2018 EKG Measurement Heart [id number] <Conclusion> Normal sinus rhythm with sinus arrhythmia Nonspecific T wave abnormality Abnormal ECG
== END 2018-10-13 23:36 | disposition home or self-care (01) ==
LOC: C.ER 18:07
DX: R50.9 Fever, unspecified (principal); I10 Essential (primary) hypertension; Z86.711 Personal history of pulmonary embolism
CPT/HCPCS: 71045; 80053; 81001; 82803; 85025; 85610; 85730; 87040; 87086; 87804; 93005; 96360; 99285; J7030

== ENCOUNTER 2018-10-22 09:16 | Emergency (ER) | payer MEDICARE, MEDICAID ==
[2018-10-22 09:16] VITALS: BMI 30.4
[2018-10-22 09:37] VITALS: RESP 18
[2018-10-22 10:06] LABS: URINE BILIRUBIN NEGATIVE (NEGATIVE); URINE BLOOD NEGATIVE (NEGATIVE); URINE CLARITY Clear (Clear); URINE COLOR Yellow (YELLOW); URINE GLUCOSE (UA) NORMAL (Normal); URINE LEUKOCYTE ESTERASE NEG Leu/uL (Negative); URINE PROTEIN NEGATIVE (NEGATIVE)
[2018-10-22] MEDS ORDERED: Oxymetazoline 0.05% Nasal Spray (30 ml) NS STA (10:22)
--- NOTE | 2018-10-22 10:33 | C.PDOC ---
History Of Present Illness 78 year old male presents to the ED complaining of sinus congestion associated with headache and difficulty sleeping for several weeks. Patient was seen on 10/13/18 for same presentation and instructed by PMD to return to the ED if symptoms persisted. Patient also complains of left sided rib pain. Denies any trauma/injuries, weakness, or numbness. Denies sick contacts. Time Seen by Provider: 10/22/18 09:25 Chief Complaint (Nursing): Fever History Per: Patient History/Exam Limitations: no limitations Onset/Duration Of Symptoms: Days Current Symptoms Are (Timing): Still Present Location Of Pain: Sinus/es, Headache Sick Contacts (Context): None Associated Symptoms: Sinus Drainage, Nasal Congestion Past Medical History Reviewed: Historical Data, Nursing Documentation, Vital Signs Vital Signs: Last Vital Signs Temp 97.6 F 10/22/18 09:36 Pulse 111 H 10/22/18 09:49 Resp 18 10/22/18 09:49 BP 123/84 10/22/18 09:49 Pulse Ox 97 10/22/18 09:49 - Medical History PMH: Anemia, Back Problems (NECK PAIN), Diverticulitis (diverticulosis by exam 2015), Gastritis (H pylori + 2015), HTN, Pulmonary Embolism (sent home on pradaxa) Denies: Crohn's Disease, Gall Bladder Disease, HIV, Pancreatitis, Chronic Kidney Disease Surgical History: No Surg Hx - [facility] Procedures EXCISION OF RECTUM, ENDO, DIAGN (04/30/16) EXCISION OF STOMACH, ENDO, DIAGN (04/30/16) Family History: States: No Known Family Hx - Social History Hx Tobacco Use: No Hx Alcohol Use: No Hx Substance Use: No - Immunization History Hx Tetanus Toxoid Vaccination: No Hx Influenza Vaccination: No Hx Pneumococcal Vaccination: No Review Of Systems Except As Marked, All Systems Reviewed And Found Negative. Constitutional: Positive for: Other (difficulty sleeping ). Negative for: Fever, Chills ENT: Positive for: Nose Discharge, Nose Congestion Cardiovascular: Negative for: Chest Pain Respiratory: Negative for: Cough, Shortness of Breath Gastrointestinal: Negative for: Nausea, Vomiting, Abdominal Pain, Diarrhea Musculoskeletal: Positive for: Other (left sided rib pain ) Neurological: Positive for: Headache. Negative for: Weakness, Numbness Physical Exam - Physical Exam Appears: Non-toxic, No Acute Distress Skin: Warm, Dry, No Rash Head: Normacephalic Eye(s): bilateral: PERRL, EOMI Nose: Discharge, Other (grossly congested ) Oral Mucosa: Moist Neck: Supple Chest: Symmetrical Cardiovascular: Rhythm Regular Respiratory: No Decreased Breath Sounds, No Rales, No Rhonchi, No Wheezing, Other (CTA B/L ) Gastrointestinal/Abdominal: Soft, No Tenderness Extremity: Bilateral: Atraumatic, No Pedal Edema, Normal Color And Temperature Neurological/Psych: Oriented x3, Normal Speech Gait: Steady ED Course And Treatment - Laboratory Results Lab Results: Urine Color Yellow (YELLOW) 10/22/18 09:55 Urine Clarity Clear (Clear) 10/22/18 09:55 Urine pH 6.0 (5.0-8.0) 10/22/18 09:55 Ur Specific [place] 1.015 (1.003-1.030) 10/22/18 09:55 Urine Protein Negative mg/dL (NEGATIVE) 10/22/18 09:55 Urine Glucose (UA) Normal mg/dL (Normal) 10/22/18 09:55 Urine Ketones Negative mg/dL (NEGATIVE) 10/22/18 09:55 Urine Blood Negative (NEGATIVE) 10/22/18 09:55 Urine Nitrate Negative (NEGATIVE) 10/22/18 09:55 Urine Bilirubin Negative (NEGATIVE) 10/22/18 09:55 Urine Urobilinogen 2.0 mg/dL (0.2-1.0) 03 09:55 Ur Leukocyte Esterase Neg Joel/uL (Negative) 10/22/18 09:55 Urine WBC (Auto) < 1 /hpf (0-5) 10/22/18 09:55 Urine RBC (Auto) 5 /hpf (0-3) H 10/22/18 09:55 ECG: Interpreted By Me, Viewed By Me ECG Rhythm: Sinus Tachycardia Rate From EC O2 Sat by Pulse Oximetry: 97 (RA) Pulse Ox Interpretation: Normal Medical Decision Making Medical Decision Making: Plan - Tylenol 975mg PO - Toradol 30mg IVP - Oxymetazoline 1ml NS - Sudafed 30mg PO Prior records reviewed. Patient was seen on 10/13 for same presentation. Full work-up was done. Labs, cultures, and X-rays were normal. Disposition Counseled Patient/Family Regarding: Diagnosis, Need For Followup, Rx Given - Disposition Referrals: YOUR,PMD [Other] Disposition: HOME/ ROUTINE Disposition Time: 12:12 Condition: IMPROVED Prescriptions: Amoxicillin/Clavulanate [Augmentin 500 MG-125 MG] 1 tab PO BID #14 tab Oxymetazoline 0.05% [Oxymetazoline HCl 30 Ml] 1 ml NS Q6 #1 bottle Pseudoephedrine HCl [Sudafed] 30 mg PO Q6 #12 tablet Instructions: Sinusitis, Adult (DC) Forms: [employer] (Albanian) Print Language: CHINESE - Clinical Impression Clinical Impression: Sinusitis - Scribe Statement The provider has reviewed the documentation as recorded by the Scribe Pilar Benavidez All medical record entries made by the Padmajaibesteban were at my direction and personally dictated by me. I have reviewed the chart and agree that the record accurately reflects my personal performance of the history, physical exam, medical decision making, and the department course for this patient. I have also personally directed, reviewed, and agree with the discharge instructions and disposition.
[2018-10-22] MEDS ORDERED: Oxymetazoline 0.05% Nasal Spray (30 ml) NS ONE ×2 (11:00→11:18)
[2018-10-22 11:42] VITALS: BP 105/73; PULSE 97
[2018-10-22 12:12] VITALS: O2SAT 97
[2018-10-22 12:24] VITALS: TEMP 98.8
--- NOTE | 2018-10-23 14:21 | CARD ---
APPROVED REPORT Date of service: 10/22/2018 EKG Measurement Heart [id number] CO 154P40 [id number] <Conclusion> Sinus tachycardia Left anterior fascicular block Abnormal ECG
== END 2018-10-22 12:24 | disposition home or self-care (01) ==
LOC: C.ER 09:16
DX: J32.9 Chronic sinusitis, unspecified (principal); I10 Essential (primary) hypertension; Z86.711 Personal history of pulmonary embolism
CPT/HCPCS: 81001; 93005; 96374; 99285; J1885

== ENCOUNTER 2018-12-17 10:06 | Outpatient (CLI) | payer MEDICARE, MEDICAID | END 2018-12-17 10:07 | disposition home or self-care (01) | LOC: C.PAT 10:06 | DX: K42.9 Umbilical hernia without obstruction or gangrene (principal) ==

== ENCOUNTER 2018-12-22 10:21 | Day surgery (SDC) | payer MEDICAID, MEDICARE ==
[2018-12-17 10:43] VITALS: BMI 30.2
[2018-12-22] MEDS ORDERED: Lidocaine/Epinephrine 1% 1:100000 10 ML IJ ONE (15:56)
[2018-12-22] MEDS ORDERED: Bupivacaine 0.25% 20 ML INJ IJ ONE (15:56)
[2018-12-22] MEDS ORDERED: Sodium Chloride 0.9% 40 ML IV ONE (15:56)
[2018-12-22] MEDS ORDERED: ceFAZolin 1 gm in NS 2 GM/200 ML BAG IVPB ONE (15:56)
[2018-12-22] MEDS ORDERED: Bupivacaine Liposomal Inj 20 ml INFIL ONE (15:58)
[2018-12-22] MEDS ORDERED: Bupivacaine Liposomal Inj 20 ml INJ ONE (17:14)
--- NOTE | 2018-12-22 18:06 | PCM.SURG1 ---
Surgeon's Initial Post Op Note - Surgeon's Notes Surgeon: Magdy Pollack MD Screw Machine Adjuster Automatic: Crystal Kim, PGY-2; R[place] Alfaro Type of Anesthesia: General Endo Anesthesia Administered By: Dr. Whitley Pre-Operative Diagnosis: Bilateral inguinal hernia, umbilical hernia Operative Findings: left inguinal hernia, right femoral hernia, umbilical hernia Post-Operative Diagnosis: Right femoral hernia, left inguinal hernia, umbilical hernia Operation Performed: Robotic left inguinal hernia and right femoral hernia repair with mesh, open primary repair of umbilical hernia, TEP block Specimen/Specimens Removed: femoral hernia contents, umbilical hernia, b/l hernia sac Estimated Blood Loss: EBL {In ML}: 10 Blood Products Given: N/A Drains Used: No Drains Post-Op Condition: Good Date of Surgery/Procedure: 12/22/18 Time of Surgery/Procedure: 18:06
[2018-12-22] MEDS: HYDROmorphone 0.5 mg/0.5 ml ISec IVP PRN ×4 (18:18→19:23)
[2018-12-22 19:26] VITALS: O2SAT 100
[2018-12-22 21:13] VITALS: BP 130/90; PULSE 103; RESP 18; TEMP 97.3
--- NOTE | 2018-12-24 03:46 | OP ---
PROCEDURE DATE: 12/22/2018 PREOPERATIVE DIAGNOSES: 1. Bilateral inguinal hernia. 2. Umbilical hernia. POSTOPERATIVE DIAGNOSES: 1. Bilateral inguinal hernia. 2. Right femoral hernia. 3. Umbilical hernia. PROCEDURES DONE: 1. Robotic bilateral inguinal hernia repair with a mesh. 2. Robotic right femoral hernia repair with a mesh. 3. Robotic excision of the lipoma of the cord bilaterally. 4. Robotic bilateral transversus abdominis plane block placement. 5. Open umbilical hernia repair primary closure without mesh. SURGEON: Magdy Pollack MD ASSISTANTS: Crystal Kim DO, PGY-2 resident and FLETCHER Griffin ANESTHESIA: General endotracheal tube anesthesia. ESTIMATED BLOOD LOSS: Around 10 mL. DRAINS: None. PATHOLOGY: Lipoma of the both cords as well as right femoral hernial content and sac and umbilical hernial content and sac, was sent to Pathology. COMPLICATIONS: None. INTRAOPERATIVE FINDINGS: The patient had bilateral inguinal hernia, the left direct and right indirect. The patient also had lipoma of the cord bilaterally as well as the right femoral hernia containing preperitoneal fat. The patient also had 2 x 1 cm umbilical hernia. DESCRIPTION OF PROCEDURE: On intraoperative steps, this is a 78-year-old male who was diagnosed with bilateral inguinal hernia, and the patient was also diagnosed with umbilical hernia. The patient was consented for the robotic bilateral inguinal hernia with a mesh. Brought to the OR, placed supine on the operating room table. After induction of anesthesia, the abdomen was prepped and draped in the usual sterile fashion. A supraumbilical incision was made using open technique. Through the umbilical sac, peritoneal cavity was entered. Pneumo was created. Another 3-8 mm port was placed in upper abdomen. Robot was brought in. Camera arm as well as arm-1 and arm-2 were docked. Peritoneum was incised from the left ASIS up to right ASIS. The midline dissection was done up to the space of Retzius. Laterally, the peritoneal reflection from the lateral abdominal wall was dissected, and the hernial sac was reduced back into the peritoneal cavity. The patient had a lipoma of the cord on the right side that was also excised. The patient also had right femoral hernia that was also reduced, and it was excised and it was sent off the table for the pathology. Inferior dissection was done up to the pelvic brim. Laterally, dissection of the peritoneal reflection was done, and dissection was carried down to reduce the direct hernial sac. The patient also had a large lipoma of the cord that was also excised, and inferior dissection was done up to the pelvic brim. Now, the bilateral meshes were placed and both meshes were implanted. After proper implantation of the meshes, the peritoneum was sutured with 0 Vicryl interrupted as well as 3-0 PDS continuous sutures. After that, laparoscopic bilateral TAP block was given. The 30:30 mL of Exparel with saline was injected into the transverse abdominis muscles plane area. After proper TAP block bilaterally, all the ports were taken out under vision. Pneumo was deflated. Umbilical port site had hernia that was excised, and it was sent off the table for pathology. The fascial edges were re-fashioned. The fascia was closed with multiple Prolene interrupted 0 Prolene sutures. After the hernia was repaired, all the wounds were closed in two layers, the subcu with 2-0 Vicryl, skin with 4-0 Monocryl and dry sterile dressing was applied. The patient tolerated the procedure well. Count of instrument and gauze was correct. There was no apparent complication. The patient was extubated in OR and sent to the postanesthesia care unit in stable condition. Magdy Pollack MD
== END 2018-12-22 21:00 | disposition home or self-care (01) ==
LOC: C.SDS 10:21
PROVIDERS: ATTEND Surgery Surgical Critical Care
DX: K40.20 Bilateral inguinal hernia, without obstruction or gangrene, not specified as recurrent (principal); K42.9 Umbilical hernia without obstruction or gangrene; K41.90 Unilateral femoral hernia, without obstruction or gangrene, not specified as recurrent; D17.6 Benign lipomatous neoplasm of spermatic cord
CPT/HCPCS: 49585; 49650; 49659; 55559; 64488; 88302; 88304; J0690; J1170; S2900

== ENCOUNTER 2018-12-29 11:21 | Emergency (ER) | payer MEDICARE ==
[2018-12-29 11:21] VITALS: BMI 30.2
[2018-12-29 11:31] VITALS: BP 142/93; PULSE 72; RESP 18; TEMP 98.5; O2SAT 97
--- NOTE | 2018-12-29 11:48 | C.PDOC ---
History Of Present Illness 78 y/o male comes to ed for suture/steri strip removal s/p hernia operation last Saturday here at [facility] by Dr Luong. denies abdominal pain, fever. Time Seen by Provider: 12/29/18 11:42 Chief Complaint (Nursing): Abnormal Skin Integrity History Per: Patient History/Exam Limitations: no limitations Onset/Duration Of Symptoms: Other (steri-strip removal) Current Symptoms Are (Timing): Still Present Location Of Injury: Anterior: Abdomen (steri-strips ) Quality Of Symptoms: denies: Painful, Itching, Swollen, Draining Past Medical History Reviewed: Historical Data, Nursing Documentation, Vital Signs Vital Signs: Last Vital Signs Temp 98.5 F 12/29/18 11:23 Pulse 72 12/29/18 11:23 Resp 18 12/29/18 11:23 BP 142/93 H 12/29/18 11:23 Pulse Ox 97 12/29/18 11:23 Primary Care Provider: Robert Vizcarra - Medical History PMH: Anemia, Back Problems (NECK PAIN), Diverticulitis (diverticulosis by exam 2015), Gastritis (H pylori + 2015), HTN Surgical History: No Surg Hx - [facility] Procedures EXCISION OF RECTUM, ENDO, DIAGN (04/30/16) EXCISION OF STOMACH, ENDO, DIAGN (04/30/16) Family History: States: Unknown Family Hx - Social History Hx Tobacco Use: No Hx Alcohol Use: No Hx Substance Use: No - Immunization History Hx Tetanus Toxoid Vaccination: No Hx Influenza Vaccination: No Hx Pneumococcal Vaccination: No Review Of Systems Constitutional: Negative for: Fever, Chills, Weakness Gastrointestinal: Positive for: Other ( steri strips to the abdomen). Negative for: Nausea, Vomiting, Abdominal Pain Skin: Negative for: Rash, Lesions, Other (discharge, redness, swelling) Neurological: Negative for: Weakness, Numbness Physical Exam - Physical Exam Appears: Non-toxic, No Acute Distress Skin: Normal Color, Warm, Dry Head: Atraumatic, Normacephalic Neck: Normal ROM, Supple Chest: Symmetrical, No Deformity Cardiovascular: Rhythm Regular, No Murmur Gastrointestinal/Abdominal: Bowel Sounds (normoactive), Soft, No Tenderness, No Distention, No Guarding, No Rebound, Other (multiple areas on abdomen with steri-strips s/p laproscopic surgery) Neurological/Psych: Oriented x3, Normal Speech, Normal Cognition ED Course And Treatment O2 Sat by Pulse Oximetry: 97 (in RA) Pulse Ox Interpretation: Normal Medical Decision Making Medical Decision Making: Impression:78 y/o male comes to ed for suture/steri strip removal s/p hernia operation last Saturday here at [facility] by Dr Luong. Progress: 1148: surgical assistant certified paged 1200: spoke with surgical assistant certified. Agreed to come and see patient. 1224 pt seen by surgery resident who spoke to Dr Garsia, wants to see patient in office on , no suture reomval to be done today.. Disposition Discussed With .: Magdy Pollack Doctor Will See Patient In The: Office - Disposition Referrals: Magdy Pollack MD [Staff Provider] - Disposition: HOME/ ROUTINE Disposition Time: 12:26 Condition: GOOD Additional Instructions: Temo un seguimiento con el Dr. Luong en andrews oficina el jueves; llame maana para rachel maame. Follow up with Dr Luong in his office on ; call tomorrow for appointment. Forms: Gen Discharge Inst Senegalese, [employer] (Senegalese) - Clinical Impression Clinical Impression: Encounter for postoperative wound check - PA / LICENSED MORTICIAN / Resident Statement MD/DO has reviewed & agrees with the documentation as recorded. (Urmila Padilla) - Scribe Statement The provider has reviewed the documentation as recorded by the Scribe (Urmila Padilla) All medical record entries made by the Scribe were at my direction and personally dictated by me. I have reviewed the chart and agree that the record accurately reflects my personal performance of the history, physical exam, medical decision making, and the department course for this patient. I have also personally directed, reviewed, and agree with the discharge instructions and disposition.
== END 2018-12-29 12:30 | disposition home or self-care (01) ==
LOC: C.ER 11:21
DX: Z48.01 Encounter for change or removal of surgical wound dressing (principal)